=== PATIENT | female | born 1980 | race Caucasian/White ===

== ENCOUNTER → 2017-04-10 | Outpatient (CLI) | payer MEDICARE, OTHER, SELFPAY | PROVIDERS: Family Provider Nurse Practitioner Family; Visit Provider Family Medicine | DX: Z53.9 Procedure and treatment not carried out, unspecified reason (principal) ==

== ENCOUNTER → 2019-09-24 16:00 | Outpatient (BNVA) | payer MEDICARE, SELFPAY | PROVIDERS: Family Provider Nurse Practitioner; PCP Nurse Practitioner; Visit Provider Specialist | DX: S52.591A Other fractures of lower end of right radius, initial encounter for closed fracture (principal); X58.XXXA Exposure to other specified factors, initial encounter | CPT/HCPCS: 73110 ==

== ENCOUNTER → 2019-10-21 10:19 | Outpatient (BNVA) | payer MEDICARE, OTHER, SELFPAY | PROVIDERS: Family Provider Nurse Practitioner; PCP Nurse Practitioner; Visit Provider Nurse Practitioner | DX: R20.0 Anesthesia of skin (principal); R20.2 Paresthesia of skin | CPT/HCPCS: 82607 ==

== ENCOUNTER → 2019-10-29 10:43 | Outpatient (BNVA) | payer OTHER, SELFPAY | PROVIDERS: Family Provider Nurse Practitioner; PCP Nurse Practitioner; Visit Provider Nurse Practitioner | DX: R20.0 Anesthesia of skin (principal); R20.2 Paresthesia of skin | CPT/HCPCS: 72040 ==

== ENCOUNTER → 2019-11-06 10:02 | Outpatient (BNVA) | payer MEDICARE, SELFPAY | PROVIDERS: Family Provider Nurse Practitioner; PCP Nurse Practitioner; Visit Provider Nurse Practitioner Psychiatric/Mental Health | DX: F43.12 Post-traumatic stress disorder, chronic (principal); S06.9X9S Unspecified intracranial injury with loss of consciousness of unspecified duration, sequela; F02.80 Dementia in other diseases classified elsewhere, unspecified severity, without behavioral disturbance, psychotic disturbance, mood disturbance, and anxiety; F17.200 Nicotine dependence, unspecified, uncomplicated | CPT/HCPCS: 99214 ==

== ENCOUNTER 2019-11-08 16:07 | Emergency (ER) | payer MEDICARE, SELFPAY ==
[2019-11-08 16:18] VITALS: BP 150/105; PULSE 95; RESP 20; TEMP 37; O2SAT 96; BMI 41.8
--- NOTE | 2019-11-08 16:31 | ED_ITS ---
HPI - Extremity Problem General: Chief complaint: General Medical Stated complaint: right hand numb Time Seen by Provider: 11/08/19 16:24 Source: patient Mode of arrival: ambulatory Limitations: no limitations History of Present Illness: HPI Narrative: Patient is a 39-year-old female who presents to ED today with complaints of tingling to her right hand. Patient tells me she broke her wrist back in 07/2019. Patient states she followed up with orthopedics and eventually had the wrist casted. She tells me approximately a month ago she had her cast removed and states since that time she has had constant tingling to her right hand. Patient tells me she is not having any pain. She maintains full range of motion of her wrist and digits. She has not noticed any color/temperature changes to the hand. MD Complaint: extremity pain (tingling ) Onset (ago): month(s) Pain Consistency: constant Location: right Radiation: none Relieving factors: nothing Exacerbating factors: nothing Associated symptoms: Reports no associated symptoms Review of Systems Musc: Denies: extremity pain, extremity swelling, joint pain, joint swelling, redness, joint warmth, joint stiffness or limited range of motion Neuro: Reports: changes in sensation (R hand) [facility] ED PFSH: Medical History (Updated 11/08/19 @ 16:38 by JUAN Moore) Acid reflux Chronic post-traumatic stress disorder (PTSD) 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 Her significant other assists in reading/writing activities due to patient's reading/writing difficulties. PTSD (post-traumatic stress disorder) Seasonal allergic rhinitis Tobacco use disorder Tobacco use: She smokes 1 pack/day;20 year smoker. She reports she stopped using cigarettes at one point when she used Chantix, which was prescribed by her PCP. She is to think about whether or not she wants to restart Chantix in future visits and discuss with either PCP or [facility] provider. Surgical History (Updated 10/21/19 @ 10:12 by CRISS Calderón) History of bilateral knee arthroplasty History of hysterectomy with bilateral oophorectomy History of skin graft On bilateral legs History of umbilical hernia repair Social History (Updated 11/06/19 @ 10:21 by Macie Stephens LPN) Smoking and tobacco status: current every day smoker cigarettes Packs smoked per day: 1 Years cigarettes smoked: 20 Quit status (tobacco): not considering quitting Second hand smoke exposure: No Smoking risk assessment/counseling performed?: No Alcohol intake: never Desire information about alcohol rehabilitation?: No Counseling given: No Desire information about substance/drug rehabilitation?: No Counseling given: No Adopted: Yes Lives independently: Yes Household members: significant other Housing: House Marital status: Single Number of children: 0 service: No Current occupational status: unemployed Pets and animals: Yes History of recent travel: No Current gender identity: Female Physical Exam Const: COMMON NORMALS: no apparent distress, oriented x3, no limitations, alert and well nourished NUTRITIONAL APPEARANCE: obese Extremity: COMMON NORMALS: normal to inspection and full ROM OTHER: Patient has full range of motion of her right wrist and digits even against resistance. Radial pulse is intact. Cap refill is brisk. [employer] strength is equal bilaterally. Patient with her eyes closed can feel me touching her throughout both her dorsal and volar sides. Neuro: COMMON NORMALS: oriented x3 SENSORIUM/ORIENTATION: Yes alert Skin: COMMON NORMALS: no rashes or lesions noted GENERAL SKIN EXAM: no rashes or lesions noted Course Vital Signs: Vital signs: Vital Signs Temperature 98.6 F 11/08/19 16:18 Pulse Rate 95 11/08/19 16:18 Respiratory Rate 20 H 11/08/19 16:18 Blood Pressure 150/105 11/08/19 16:18 Pulse Oximetry 96 11/08/19 16:18 MDM - Extremity (Nontraumatic) MDM Narrative: Medical decision making narrative: Patient states paresthesias seemed to start after removal of her cast from her distal radial fracture. There is no specific nerve distribution to her paresthesias. Recommend she fol low-up with primary care or possibly orthopedics for further management. Discharge Plan Discharge Patient Disposition: Home, Self-Care Clinical Impression: Paresthesias in right hand Condition: Stable Prescriptions: No Action doxepin 10 mg capsule 10 mg PO DAILY RF: 0 hydrocodone-acetaminophen 5-325 mg tablet PO RF: 0 albuterol sulfate 90 mcg/actuation HFA aerosol inhaler INHALATION RF: 0 metoclopramide HCl 10 mg tablet 10 mg PO PRNRF: 0 mupirocin 2 % ointment TOPICAL RF: 0 famotidine 20 mg tablet 20 mg PO DAILY Qty: 30 RF: 2 furosemide 20 mg tablet PO DAILY RF: 0 montelukast 10 mg tablet 10 mg PO DAILY RF: 0 ondansetron HCl 8 mg tablet 8 mg PO Q8H PRNRF: 0 potassium chloride 10 mEq tablet,ER particles/crystals 10 meq PO DAILY RF: 0 terazosin 2 mg capsule 2 mg PO .QHS RF: 0 fluoxetine [Prozac] 20 mg capsule 20 mg PO QAM Qty: 30 RF: 1 fluoxetine [Prozac] 10 mg capsule 10 mg PO QAM Qty: 30 RF: 1 Discharge Orders: Discharge Order (Routine); Ordered 11/08/19 Ordered By: Citlalli Cerrato Referrals: Flakita Kerr, DIRECTOR COMMUNITY [employer]GANIZATION-C [Primary Care Provider] - Patient Instructions: Paresthesia (ED) Coding Level of Care Code ED Manager Product Marketing for Aj Whalen
[2019-11-08 17:03] VITALS: BP 142/99; PULSE 92; RESP 18; TEMP 36.9; O2SAT 96
== END 2019-11-08 17:10 | disposition home or self-care (01) ==
LOC: ER 17:02
PROVIDERS: Emergency Provider Physician Assistant; Family Provider Nurse Practitioner; PCP Nurse Practitioner
DX: R20.2 Paresthesia of skin (principal); F17.210 Nicotine dependence, cigarettes, uncomplicated
CPT/HCPCS: 99281

== ENCOUNTER → 2019-11-17 13:14 | Outpatient (BNVA) | payer MEDICARE, MEDICAID, SELFPAY | PROVIDERS: Family Provider Nurse Practitioner; PCP Nurse Practitioner; Visit Provider Specialist | DX: M25.531 Pain in right wrist (principal) | CPT/HCPCS: 73110 ==

== ENCOUNTER 2019-11-26 09:21 | Outpatient (RCR) | payer MEDICARE, MEDICAID, SELFPAY | END 2019-12-09 23:59 | disposition home or self-care (01) | LOC: SOT 09:21 | PROVIDERS: Family Provider Nurse Practitioner; PCP Nurse Practitioner; Referring Provider Specialist; Visit Provider Specialist | DX: S52.501D Unspecified fracture of the lower end of right radius, subsequent encounter for closed fracture with routine healing (principal); X58.XXXD Exposure to other specified factors, subsequent encounter | CPT/HCPCS: 97110; 97112; 97166; 97530 ==

== ENCOUNTER → 2019-12-09 08:49 | Outpatient (BNVA) | payer MEDICARE, SELFPAY | PROVIDERS: Family Provider Nurse Practitioner; PCP Nurse Practitioner; Visit Provider Nurse Practitioner | DX: E66.01 Morbid (severe) obesity due to excess calories (principal); F17.200 Nicotine dependence, unspecified, uncomplicated; J44.9 Chronic obstructive pulmonary disease, unspecified; Z13.6 Encounter for screening for cardiovascular disorders; Z68.41 Body mass index [BMI] 40.0-44.9, adult; R35.0 Frequency of micturition | CPT/HCPCS: 80053; 80061; 81000 ==

== ENCOUNTER 2019-12-10 06:00 | Outpatient (RCR) | payer MEDICARE, MEDICAID, SELFPAY | END 2020-01-08 23:59 | disposition home or self-care (01) | LOC: SOT 06:00 | PROVIDERS: Family Provider Nurse Practitioner; PCP Nurse Practitioner; Referring Provider Specialist; Visit Provider Specialist | DX: S52.501D Unspecified fracture of the lower end of right radius, subsequent encounter for closed fracture with routine healing (principal); X58.XXXD Exposure to other specified factors, subsequent encounter | CPT/HCPCS: 97110; 97112; 97530 ==

== ENCOUNTER → 2020-01-01 08:26 | Outpatient (BNVA) | payer MEDICARE, MEDICAID, SELFPAY | PROVIDERS: Family Provider Nurse Practitioner; PCP Nurse Practitioner; Visit Provider Nurse Practitioner Psychiatric/Mental Health | DX: F43.12 Post-traumatic stress disorder, chronic (principal); F02.80 Dementia in other diseases classified elsewhere, unspecified severity, without behavioral disturbance, psychotic disturbance, mood disturbance, and anxiety; S06.9X9S Unspecified intracranial injury with loss of consciousness of unspecified duration, sequela | CPT/HCPCS: 99212 ==

== ENCOUNTER 2020-01-14 15:49 | Emergency (ER) | payer MEDICARE, MEDICAID, SELFPAY ==
[2020-01-14 16:27] VITALS: BP 145/104; PULSE 82; RESP 18; TEMP 36.5; O2SAT 97; BMI 44.4
[2020-01-14 16:33] VITALS: BP 141/95; PULSE 78; RESP 18; O2SAT 98
--- NOTE | 2020-01-14 17:43 | W.ED.EXTPRO ---
Documented by User: Rik Jalloh DO 01/16/20 13:52 HPI - Extremity Problem General: Chief complaint: Extremity Injury, Lower Stated complaint: leg pain Time Seen by Provider: 01/14/20 16:30 History of Present Illness: HPI Narrative: 39-year-old female comes in complaining of right leg pain started 1 to 2 days ago. She had a right lateral popliteal discomfort she cannot recall any specific trauma other than that she seemed her daughter twisted while she was taking her dogs out 2 days ago. She is ambulatory since then she denies chest pain or dyspnea. MD Complaint: extremity pain and extremity swelling Onset (ago): day(s) (2) Pain Consistency: constant Location: right Relieving factors: nothing Exacerbating factors: nothing Associated symptoms: Deny chest pain, fever(s) or rash Context: other (Hurt knee while taking out the dog 1 to 2 days ago) Review of Systems Const: Denies: fever, chills, body aches, change in appetite, fatigue or malaise ENMT: Denies: throat pain, ear pain, nasal discharge or nasal congestion Card: Denies: chest pain, edema, shortness of breath on exertion or shortness of breath when lying down Resp: Denies: shortness of breath, productive cough or non-productive cough GI: Denies: abdominal pain, nausea, vomiting, vomiting blood, coffee grounds in vomit, diarrhea, constipation, bloating, blood in stool or black tarry stool : Denies: flank pain, difficulty urinating, painful urination, urinary frequency or urinary urgency Skin/Breast: Denies: rash or itching PFSH ED PFSH: Social History Smoking and tobacco status: current every day smoker cigarettes Packs smoked per day: 1 Years cigarettes smoked: 20 Quit status (tobacco): not considering quitting Second hand smoke exposure: No Smoking risk assessment/counseling performed?: No Alcohol intake: never Desire information about alcohol rehabilitation?: No Counseling given: No Desire information about substance/drug rehabilitation?: No Counseling given: No Adopted: Yes Caregiver/support person: No Lives independently: Yes Household members: significant other Housing: House Marital status: Single Number of children: 0 service: No Current occupational status: unemployed Pets and animals: Yes History of recent travel: No Current gender identity: Female Physical Exam Const: COMMON NORMALS: no apparent distress GENERAL APPEARANCE: cooperative and comfortable ORIENTATION/CONSCIOUSNESS: Yes awake, Yes oriented to person, Yes oriented to place and Yes oriented to time Eye: COMMON NORMALS: PERRL, EOMs intact bilaterally, conjunctivae normal and no scleral icterus CONJUNCTIVA: Yes conjunctivae normal PUPIL: Yes PERRL Neck/C-Spine: COMMON NORMALS: full ROM, no lymphadenopathy, supple and no JVD Lymph: LYMPHATIC: no lymphadenopathy noted and no lymphedema noted Resp: COMMON NORMALS: normal respiratory effort, no retractions, no use of accessory muscles and clear to auscultation bilaterally AUSCULTATION: clear to auscultation bilaterally Cardio: COMMON NORMALS: no JVD, regular rate, regular rhythm and no murmurs RATE: regular rate RHYTHM: regular rhythm GI: COMMON NORMALS: soft to palpation and no hepatosplenomegaly AUSCULTATION: Yes normoactive bowel sounds PALPATION: Yes soft, No tender, No guarding and Yes no hepatosplenomegaly Extremity: OTHER: Right knee lateral popliteal fossa is moderately firm tender to the touch there is no erythema or swelling or some generalized varicose veins but they are not tender with light palpation. There is bilateral moderate calf edema which appears to be chronic. The ligaments of the knee joint itself are intact there is no varus or valgus deformity drawer and Lockman's test are negative. Neuro: SENSORIUM/ORIENTATION: Yes oriented to person, Yes oriented to place and Yes oriented to time Skin: COMMON NORMALS: no rashes or lesions noted GENERAL SKIN EXAM: no rashes or lesions noted Course Vital Signs: Vital signs: Vital Signs Temperature 97.7 F 01/14/20 16:27 Pulse Rate 78 01/14/20 20:18 Respiratory Rate 18 01/14/20 20:18 Blood Pressure 146/87 01/14/20 20:18 Pulse Oximetry 99 01/14/20 20:18 MDM - Extremity (Nontraumatic) MDM Narrative: Medical decision making narrative: Care turned over with Dr. Kay at change of shift. We are waiting on a x-ray of the knee and a venous duplex lower extremity Discharge Plan Discharge Patient Disposition: Home, Self-Care Clinical Impression: Acute internal derangement of knee Qualifiers: Laterality: right Qualified Code(s): M23.91 - Unspecified internal derangement of right knee Condition: Stable Prescriptions: No Action albuterol sulfate 90 mcg/actuation HFA aerosol inhaler 90 g INHALATION PRN PRN (Reason: Shortness Of Breath) RF: 0 metoclopramide HCl 10 mg tablet 10 mg PO PRN PRN (Reason: UNKNOWN) RF: 0 ondansetron HCl 8 mg tablet 8 mg PO Q8H PRN (Reason: NAUSEA/VOMITING) RF: 0 fluoxetine [Prozac] 10 mg capsule 10 mg PO QAM Qty: 30 RF: 1 fluoxetine [Prozac] 20 mg capsule 20 mg PO QAM Qty: 30 RF: 1 doxepin 10 mg capsule 10 mg PO DAILY Qty: 30 RF: 5 furosemide 20 mg tablet 20 mg PO DAILY PRN (Reason: edema) Qty: 30 RF: 5 montelukast 10 mg tablet 10 mg PO DAILY Qty: 30 RF: 5 potassium chloride 10 mEq tablet,ER particles/crystals 10 meq PO DAILY Qty: 30 RF: 5 isosorbide dinitrate 30 mg tablet 30 mg PO DAILY Qty: 45 RF: 3 rosuvastatin [Crestor] 5 mg tablet 5 mg PO DAILY Qty: 30 RF: 0 Discharge Orders: Discharge Order (Routine); Ordered 01/14/20 Ordered By: Keily Quiros Referrals: Flakita Kerr, PROGRAM MANAGEMENT PROFESSIONAL-C [Primary Care Provider] - Pam Call MD [Physician] - 1-3 days Discharge Diet: Advance as tolerated Discharge Activity: Increase activity as tolerated Patient Instructions: Knee Pain (ED), Knee Immobilizer (ED) Activity Restrictions/Additional Instructions: Please return to the ER immediately for any of the signs or symptoms listed on your discharge instruction sheets, worsening/changing of your symptoms, you are not getting better as quickly as expected, or for ANY other cause or concerns. Bear weight on your leg only as tolerated. Be certain to follow-up with Dr. Villegas for repeat examination to evaluate for any further injuries. Discharge Date/Time: 01/14/20 20:20 Sign Out Sign Out Data: Patient Sign Out occurred on 01/14/20 at 19:00. Patient's care was discussed, and care was transferred from to Keily Quiros. Coding Level of Care Code ED Glazing Department Supervisor for Chg Fwd Exam Comprehensive Documented by User: Keily Demi DowneyChula 01/14/20 19:03 HPI - Extremity Problem General: Chief complaint: Extremity Injury, Lower Stated complaint: leg pain Time Seen by Provider: 01/14/20 16:30 PFSH ED PFSH: Social History Smoking and tobacco status: current every day smoker cigarettes Packs smoked per day: 1 Years cigarettes smoked: 20 Quit status (tobacco): not considering quitting Second hand smoke exposure: No Smoking risk assessment/counseling performed?: No Alcohol intake: never Desire information about alcohol rehabilitation?: No Counseling given: No Desire information about substance/drug rehabilitation?: No Counseling given: No Adopted: Yes Caregiver/support person: No Lives independently: Yes Household members: significant other Housing: House Marital status: Single Number of children: 0 service: No Current occupational status: unemployed Pets and animals: Yes History of recent travel: No Current gender identity: Female Course Vital Signs: Vital signs: Vital Signs Temperature 97.7 F 01/14/20 16:27 Pulse Rate 78 01/14/20 20:18 Respiratory Rate 18 01/14/20 20:18 Blood Pressure 146/87 01/14/20 20:18 Pulse Oximetry 99 01/14/20 20:18 MDM - Extremity (Nontraumatic) MDM Narrative: Medical decision making narrative: Patient's x-ray of her knee is unremarkable and her ultrasound is normal. I will place her in a knee immobilizer, crutches and have her follow-up with the orthopedic doctor Dr. Villegas. Imaging Data^: US Vascular: Radiologist's impression: Ultrasound lower extremity venous Doppler -negative for DVT Right Knee: My impression: No acute fracture or dislocation Discharge Plan Discharge Patient Disposition: Home, Self-Care Clinical Impression: Acute internal derangement of knee Qualifiers: Laterality: right Qualified Code(s): M23.91 - Unspecified internal derangement of right knee Condition: Stable Prescriptions: No Action albuterol sulfate 90 mcg/actuation HFA aerosol inhaler 90 g INHALATION PRN PRN (Reason: Shortness Of Breath) RF: 0 metoclopramide HCl 10 mg tablet 10 mg PO PRN PRN (Reason: UNKNOWN) RF: 0 ondansetron HCl 8 mg tablet 8 mg PO Q8H PRN (Reason: NAUSEA/VOMITING) RF: 0 fluoxetine [Prozac] 10 mg capsule 10 mg PO QAM Qty: 30 RF: 1 fluoxetine [Prozac] 20 mg capsule 20 mg PO QAM Qty: 30 RF: 1 doxepin 10 mg capsule 10 mg PO DAILY Qty: 30 RF: 5 furosemide 20 mg tablet 20 mg PO DAILY PRN (Reason: edema) Qty: 30 RF: 5 montelukast 10 mg tablet 10 mg PO DAILY Qty: 30 RF: 5 potassium chloride 10 mEq tablet,ER particles/crystals 10 meq PO DAILY Qty: 30 RF: 5 isosorbide dinitrate 30 mg tablet 30 mg PO DAILY Qty: 45 RF: 3 rosuvastatin [Crestor] 5 mg tablet 5 mg PO DAILY Qty: 30 RF: 0 Discharge Orders: Discharge Order (Routine); Ordered 01/14/20 Ordered By: Keily Quiros Referrals: Flakita Kerr, PROGRAM MANAGEMENT PROFESSIONAL-C [Primary Care Provider] - Pam Call MD [Physician] - 1-3 days Discharge Diet: Advance as tolerated Discharge Activity: Increase activity as tolerated Patient Instructions: Knee Pain (ED), Knee Immobilizer (ED) Activity Restrictions/Additional Instructions: Please return to the ER immediately for any of the signs or symptoms listed on your discharge instruction sheets, worsening/changing of your symptoms, you are not getting better as quickly as expected, or for ANY other cause or concerns. Bear weight on your leg only as tolerated. Be certain to follow-up with Dr. Villegas for repeat examination to evaluate for any further injuries. Discharge Date/Time: 01/14/20 20:20 Sign Out Sign Out Data: Patient Sign Out occurred on 01/14/20 at 19:00. Patient's care was discussed, and care was transferred from to Keily Quiros. Coding Level of Care Code ED Glazing Department Supervisor for Aj Fwd Exam Comprehensive
--- NOTE | 2020-01-14 17:44 | XR_ITS ---
WS: [id number] XR knee RT 3V* [id number] REASON FOR EXAM: Right knee pain The patella shows no definite fractures or dislocations. FINDINGS: The meniscal spaces are normal. The patella femoral articulations normal. The patella tibial space normal. XR/XR knee RT 3V* [id number] IMPRESSION: Negative right knee.
--- NOTE | 2020-01-14 17:44 | USCV_ITS ---
Sahil Omuarginger Age: 39 Gender: F : 1980 Exam Date: 01/14/2020 18:31 Ordering Phys: Rik Jalloh DO Technologist: Shelbie Landis Exam Location: [facility] [place] Indication: Pain Rt lateral lower leg with no trauma HISTORY: Pain Rt lateral lower leg with no trauma PROCEDURES: Venous duplex imaging was performed in only the right lower extremity. The following venous structures were evaluated: common femoral vein, profunda vein, proximal portion of the greater saphenous vein, superficial femoral vein, and the popliteal vein. In addition, the posterior tibial and peroneal trunk were evaluated. Serial compression, augmentation maneuvers, and spectral Doppler flow evaluation were performed. FINDINGS: No DVT seen in any vessel examined Small ? Donato's Cyst medial Rt pop fossa Rt lower later leg...edema noted in area directed by patient CONCLUSIONS No evidence of right lower extremity DVT. Small popliteal cyst 1.5 x 0.9cm Tal Vidal MD (Electronically Signed) Final Date: 15 Jan 2020 12:39 S
[2020-01-14 18:33] VITALS: BP 140/94; PULSE 77; RESP 18; O2SAT 97
[2020-01-14 20:18] VITALS: BP 146/87; PULSE 78; RESP 18; O2SAT 99
--- NOTE | 2020-01-15 10:28 | DCPLANNER ---
manager floor had message to schedule a follow up appointment for patient with ortho. manager floor called the ortho clinic, spoke with Shanta, gave clinic patients information. manager floor was told that patients information would be printed and reviewed. Clinic will call telephonic case manager and patient with appointment information.
--- NOTE | 2020-01-16 14:40 | DCPLANNER ---
Patient has a follow up appointment scheduled for Sunday, January 19, 2020 at 4:[address] Forbes. Clinic will call patient with appointment information.
== END 2020-01-14 20:20 | disposition home or self-care (01) ==
PROVIDERS: Emergency Provider Emergency Medicine; PCP Nurse Practitioner
DX: M23.91 Unspecified internal derangement of right knee (principal); F17.210 Nicotine dependence, cigarettes, uncomplicated
CPT/HCPCS: 12345; 29530; 73562; 93971; 99281; 99283

== ENCOUNTER 2020-01-19 23:56 | Emergency (ER) | payer MEDICARE, MEDICAID, SELFPAY ==
[2020-01-20 00:02] VITALS: BP 150/107; PULSE 101; RESP 16; TEMP 36.7; O2SAT 94; BMI 44.4
== END 2020-01-20 03:55 | disposition left against medical advice (07) ==
LOC: ER 01-20 00:15
PROVIDERS: Emergency Provider Emergency Medicine; PCP Nurse Practitioner
DX: Z53.21 Procedure and treatment not carried out due to patient leaving prior to being seen by health care provider (principal)
CPT/HCPCS: 99281

== ENCOUNTER → 2020-01-23 10:33 | Outpatient (BNVA) | payer MEDICARE, MEDICAID, SELFPAY | PROVIDERS: PCP Nurse Practitioner; Referring Provider Family Medicine; Visit Provider Orthopaedic Surgery | DX: M79.604 Pain in right leg (principal); M17.11 Unilateral primary osteoarthritis, right knee | CPT/HCPCS: 73590 ==

== ENCOUNTER → 2020-01-27 11:24 | Outpatient (BNVA) | payer MEDICARE, MEDICAID, SELFPAY | PROVIDERS: PCP Nurse Practitioner; Visit Provider Specialist | DX: G56.01 Carpal tunnel syndrome, right upper limb (principal); F17.210 Nicotine dependence, cigarettes, uncomplicated | CPT/HCPCS: 95910 ==

== ENCOUNTER 2020-02-05 11:44 | Outpatient (CLI) | payer MEDICARE, MEDICAID, SELFPAY ==
--- NOTE | 2020-02-05 11:51 | MR_ITS ---
WS: [id number] INDICATION: Right leg pain TECHNIQUE: MR of the right lower leg without gadolinium enhancement. Coronal STIR, coronal T1, sagitt al STIR, sagittal T1, axial T2 fat sat, axial PD fat-sat. FINDINGS: Diffuse edema involving the fibula head with nondisplaced slightly comminuted fracture invo lving the fibula head and neck. Edema extends to the tibiotalar articulation with mild associated allegra ma in the lateral tibia. No evidence of drainable abscess or fluid collection. Degenerative arthritis right knee. Tibia otherwise appears normal. Normal visualized ankle mortise. Mild subcutaneous edema lower leg. Findings are new since the MRI knee January 04, 2018 MR/MR lower leg RT wo con* [id number] IMPRESSION: 1. Focal diffuse edema involving the fibula head with slightly comminuted non displaced fracture involving the fibula head and neck. Edema extends into the f ibular head and adjacent tibial articulation. 2. No evidence of drainable abscess or fluid collection. 3. Tibia diaphysis appears normal. 4. Recommend correlation with history of trauma.
== END 2020-02-05 11:45 | disposition home or self-care (01) ==
PROVIDERS: PCP Nurse Practitioner; Visit Provider Orthopaedic Surgery
DX: M79.604 Pain in right leg (principal); R60.9 Edema, unspecified
CPT/HCPCS: 73718

== ENCOUNTER 2020-03-03 13:11 | Outpatient (RCR) | payer MEDICARE, MEDICAID, SELFPAY | END 2020-03-09 23:59 | disposition home or self-care (01) | LOC: APT 13:11 | PROVIDERS: PCP Nurse Practitioner; Referring Provider Orthopaedic Surgery; Visit Provider Orthopaedic Surgery | DX: M25.561 Pain in right knee (principal) | CPT/HCPCS: 97110; 97161; 97530 ==

== ENCOUNTER → 2020-03-04 08:04 | Outpatient (BNVA) | payer MEDICARE, MEDICAID, SELFPAY | PROVIDERS: PCP Nurse Practitioner; Visit Provider Nurse Practitioner Psychiatric/Mental Health | DX: F33.2 Major depressive disorder, recurrent severe without psychotic features (principal); G56.01 Carpal tunnel syndrome, right upper limb; R20.0 Anesthesia of skin; R20.2 Paresthesia of skin | CPT/HCPCS: 99212 ==

== ENCOUNTER 2020-03-10 06:00 | Outpatient (RCR) | payer MEDICARE, MEDICAID, SELFPAY | END 2020-04-09 23:59 | disposition home or self-care (01) | LOC: APT 06:00 | PROVIDERS: PCP Nurse Practitioner; Referring Provider Orthopaedic Surgery; Visit Provider Orthopaedic Surgery | DX: M25.561 Pain in right knee (principal) | CPT/HCPCS: 97110 ==

== ENCOUNTER → 2020-03-18 08:01 | Outpatient (BNVA) | payer MEDICARE, MEDICAID, SELFPAY | PROVIDERS: PCP Nurse Practitioner; Visit Provider Nurse Practitioner Psychiatric/Mental Health | DX: F43.12 Post-traumatic stress disorder, chronic (principal); F17.200 Nicotine dependence, unspecified, uncomplicated; S06.9X9S Unspecified intracranial injury with loss of consciousness of unspecified duration, sequela; F02.80 Dementia in other diseases classified elsewhere, unspecified severity, without behavioral disturbance, psychotic disturbance, mood disturbance, and anxiety | CPT/HCPCS: 99212 ==

== ENCOUNTER → 2020-03-24 11:48 | Outpatient (BNVA) | payer MEDICARE, MEDICAID, SELFPAY | PROVIDERS: PCP Nurse Practitioner; Visit Provider Nurse Practitioner | DX: E78.2 Mixed hyperlipidemia (principal); R39.11 Hesitancy of micturition | CPT/HCPCS: 80053; 80061; 81000; 85025 ==

== ENCOUNTER → 2020-04-20 09:59 | Outpatient (BNVA) | payer SELFPAY | PROVIDERS: PCP Nurse Practitioner; Visit Provider Internal Medicine | DX: G56.01 Carpal tunnel syndrome, right upper limb (principal) | CPT/HCPCS: 87635 ==

== ENCOUNTER 2020-04-23 07:33 | Day surgery (SDC) | payer MEDICARE, MEDICAID, SELFPAY ==
[2020-04-22 08:25] VITALS: BMI 49.6
[2020-04-23 07:46] VITALS: BP 144/77; PULSE 87; RESP 20; TEMP 37; O2SAT 94
--- NOTE | 2020-04-23 08:02 | P.ANESASSM_ITS ---
Pre-Anesthetic Assessment Pre-Anesthetic Assessment: Height/Weight: Height 1.5 m Weight 111.584 kg Temp Pulse Resp BP Pulse Ox 98.6 F 87 20 H 144/77 94 04/23/20 07:46 04/23/20 07:46 04/23/20 07:46 04/23/20 07:46 04/23/20 07:46 Preop Diagnosis: Right Carpal Tunnel Syndrome Proposed Procedure: Operation Date: 04/23/20 08:30 Proposed Procedures p Carpal Tunnel Release 39389 G56.01(Right) - Pam Call MD Familial anesthetic complications: none Was Beta Bimal taken within 24 hour s: N/A Last intake: Intake Last Liquid Date 04/22/20 Last Liquid Time 18:00 Last Solid Date 04/22/20 Last Solid Time 18:00 Social: Social History: Tobacco Exam: Pre-Anes Outpt Exam: alert, oriented x 3, clear to auscultation bilaterally and regular rate & rhythm Airway: Cervical ROM: WNL MP: 4 Dentition: Full Pulmonary: Pulmonary: Asthma CV/HEM: CV/HEM: HTN GI: GI: GERD Metabolic: Metabolic: Hyperlipidemia and Thyroid (patient unable to state what therapy she is on) Neuropsych: Neuropsych: None reported Anesthetic Plan: ASA status: 2 Anesthesia: MAC and Regional (specify below) Other: dioni block Risk of > 500 ml blood loss (7ml/kg in children): No PFSH Anesthesia PFSH: Medical History Acid reflux Chronic post-traumatic stress disorder (PTSD) During this assessment, she reports no problematic nightmares, flashbacks, avoidance behavior, or hypervigilance related to PTSD, and says her overall mood is good. 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 She has thought about using Wellbutrin SR for smoking cessation. See subjective information below. Urinary hesitancy Surgical History History of bilateral knee arthroplasty History of hysterectomy with bilateral oophorectomy History of skin graft On bilateral legs History of umbilical hernia repair Family History Mother Cancer Diabetes Brother Cancer Diabetes Social History Smoking and tobacco status: current every day smoker cigarettes Packs smoked per day: 1 Years cigarettes smoked: 20 Quit status (tobacco): considering quitting Second hand smoke exposure: No Smoking risk assessment/counseling performed?: No Alcohol intake: never Desire information about alcohol rehabilitation?: No Counseling given: No Desire information about substance/drug rehabilitation?: No Counseling given: No Adopted: Yes Caregiver/support person: No Lives independently: Yes Household members: significant other Housing: House Marital status: Single Number of children: 0 service: No Current occupational status: unemployed Pets and animals: Yes Pets & animals: dog(s) History of recent travel: No Current gender identity: Female Data Anesthesia Cardiac Studies: No Data to Display
[2020-04-23] MEDS: CELEcoxib 200 mg Capsule 400 MG PO (08:03)
[2020-04-23] MEDS: sodium chloride 0.9% 1,000 ML 30 ML IV (08:07)
--- NOTE | 2020-04-23 08:17 | P.HPUD_ITS ---
Surgery/Procedure H&P Update DATE OF PROCEDURE: April 23, 2020 DATE H&P PERFORMED: 04/05/20 H&P UPDATE INFORMATION: I have reviewed H&P completed within last 30 days, I have examined patient prior to procedure, No changes to prior documentation and H&P is in [facility] EMR on date indicated PREOP DIAGNOSIS: Right Carpal Tunnel Syndrome PLANNED PROCEDURE: Operation Date: 04/23/20 08:30 Proposed Procedures p Carpal Tunnel Release [id number] G56.01(Right) - Pam Call MD Related Problem List Diagnoses (1) Right carpal tunnel syndrome:
[2020-04-23] MEDS: vancomycin 1,000 MG in sodium chloride 0.9% 250 ML 250 MG IV (08:24)
[2020-04-23 09:31] VITALS: BP 135/88; PULSE 74; RESP 18; TEMP 36.6; O2SAT 97
--- NOTE | 2020-04-23 10:08 | PM.OP ---
Operative Report Date of procedure: April 23, 2020 Pre-op Diagnosis: Right Carpal Tunnel Syndrome Post-op diagnosis: same Procedure Done: Right carpal tunnel release Pathology: none sent Surgeon: Pam Call Commercial Driver'S License Driver: [facility] OR technicians Anesthesia: MAC (With Reshma block) Estimated blood loss (mL): 5 Tourniquet time (min): 32 Tourniquet time: At 250 mmHg IV fluids (mL): 200 Urine output (mL): 0 Urine output: No Tyson Complications: None Findings: Severe compression across the median nerve at the carpal canal Condition: stable Disposition: same day Brief History: This 39-year-old woman presented with complaints consistent with carpal tunnel syndrome. She had significant limitations in her activities of daily living. She had pain which precluded her from sleeping and performing normal activities as well. After discussion, she wished to proceed with right carpal tunnel release. This was scheduled for her. Procedure: The patient was brought to the operating theater. The patient had a [place] block with MAC. The tourniquet was elevated to 250 mmHg for a total tourniquet time of 32 minutes. The patient was also given vancomycin 1 g preoperatively. The arm was then prepped and draped with DuraPrep in usual fashion with the arm draped free. A surgical pause was performed. At the time, the surgical pause, we confirmed the site and side of surgery. We also confirmed the patient's identity, appropriate and timely administration of preoperative antibiotics and preoperative surgical markings. An incision was then made along the thenar crease. The incision crossed the wrist joint in a curvilinear fashion. Dissection continued through skin and soft tissues using a scalpel. The palmaris longus was identified along with the transverse carpal ligament. Each of these was released carefully to avoid injury to the median nerve. We were able to dissect gently into the carpal canal which was noted to be quite tight with significant compression across the median nerve. The nerve was visualized and was an hourglass shape. The canal was subsequently palpated to assure there was no bony encroachment upon the canal. There was a quite thickened fibrous tissue within the canal, and this was opened longitudinally as well. The canal was then palpated distally and proximally to assure that my small finger was passed easily without impingement. Finding this to be so, attention was directed to closure. The wound was irrigated with ropivacaine plain. It was then closed with 3-0 nylon in an interrupted mattress fashion. Sterile dressing was then placed consisting of Xeroform gauze, fluffed fluffs, sterile soft roll, a volar splint, and an [place] wrap. The tourniquet was released after 32 minutes. There were no complications. There were no specimens. The procedure was well tolerated. Plan is the patient will be discharged home. Associated Problem List Diagnoses (1) Right carpal tunnel syndrome:
[2020-04-23 10:10] VITALS: BP 116/75; PULSE 74; RESP 18; O2SAT 96
--- NOTE | 2020-04-23 13:49 | ANE.PACU2 ---
Inpatient post-anesthesia follow up: Airway intact: Yes Vital signs: Temperature 97.8 F Pulse Rate 74 Respiratory Rate 18 Blood Pressure 116/75 Pulse Oximetry 96 Oxygen Delivery Me thod Room Air Oxygen Flow Rate Fraction of Inspir ed Oxygen Hydration adequate: Yes Nausea and vomiting: No Pain level: 1 Mental status: Baseline
== END 2020-04-23 10:35 | disposition home or self-care (01) ==
PROVIDERS: PCP Nurse Practitioner; Visit Provider Specialist
PROC: (CPT 64721; principal; 2020-04-23 08:30)
DX: G56.01 Carpal tunnel syndrome, right upper limb (principal); J45.909 Unspecified asthma, uncomplicated; I10 Essential (primary) hypertension; K21.9 Gastro-esophageal reflux disease without esophagitis; F17.210 Nicotine dependence, cigarettes, uncomplicated; F43.12 Post-traumatic stress disorder, chronic; E66.01 Morbid (severe) obesity due to excess calories; E78.2 Mixed hyperlipidemia; Z68.42 Body mass index [BMI] 45.0-49.9, adult; Z87.820 Personal history of traumatic brain injury
CPT/HCPCS: 64721; 12345; 97760; J0131; J2405; J2704; J2765; J3010; J3370; J3490; J7030; J7050; L3908

== ENCOUNTER → 2020-04-29 09:31 | Outpatient (BNVA) | payer MEDICARE, MEDICAID, SELFPAY | PROVIDERS: PCP Nurse Practitioner; Visit Provider Nurse Practitioner Psychiatric/Mental Health | DX: F43.12 Post-traumatic stress disorder, chronic (principal); F17.200 Nicotine dependence, unspecified, uncomplicated; F02.80 Dementia in other diseases classified elsewhere, unspecified severity, without behavioral disturbance, psychotic disturbance, mood disturbance, and anxiety; S06.9X9S Unspecified intracranial injury with loss of consciousness of unspecified duration, sequela | CPT/HCPCS: G0463 ==

== ENCOUNTER 2020-05-03 19:27 | Emergency (ER) | payer MEDICARE, MEDICAID, SELFPAY ==
[2020-05-03 19:29] VITALS: BP 156/99; PULSE 108; RESP 18; TEMP 37.1; O2SAT 94; BMI 45.4
--- NOTE | 2020-05-03 19:34 | XRR_ITS ---
PROCEDURE INFORMATION: Exam: XR Chest, 1 View Exam date and time: 05/03/2020 7:50 PM Age: 39 years old Clinical indication: Shortness of breath; Additional info: SOB TECHNIQUE: Imaging protocol: XR of the chest Views: Frontal portable upright view of the chest. COMPARISON: CR Chest 1 [place] [id number] 06/02/2019 8:03 PM FINDINGS: Lungs: The lungs are clear bilaterally. The pulmonary vasculature is normal. Pleural space: No pleural effusion. No pneumothorax. Heart/Mediastinum: The heart is normal in size and contour. Mediastinum: Stable. Diaphragm: The right hemidiaphragm remains mildly elevated. Bones/joints: Stable. XR/XR chest 1V portable [id number] IMPRESSION: No acute cardiopulmonary abnormality identified.
--- NOTE | 2020-05-03 19:41 | ED_ITS ---
HPI - Asthma General: Chief Complaint: Asthma Stated Complaint: ASTHMA ATTACK Time Seen by Provider: 05/03/20 19:31 Source: patient and EMS Mode of arrival: EMS Limitations: no limitations History of Present Illness: HPI Narrative: Jeet is a 39-year-old female states she has been having asthma attacks over the last 2 days. States she had increased wheezing and difficulty breathing. Patient given a breathing treatment in route and states she feels much improved. Patient is an minimal distress currently with a pulse ox 95%. She denies any chest pain. She denies any fevers. Denies any vomiting or diarrhea. complaint: asthma attack Onset (ago): day(s) Severity: moderate Associated symptoms: Reports non-productive cough; Deny chest pain or fever(s) Review of Systems Const: Denies: fever(s), chills, body aches or change in appetite Eyes: Denies: blurry vision or eye discomfort ENMT: Denies: throat pain or dental pain Card: Denies: chest pain Resp: Reports: non-productive cough and wheezing GI: Denies: abdominal pain, nausea, vomiting or diarrhea : Denies: dysuria Musc: Denies: neck pain or back pain Skin/Breast: Denies: rash Neuro: Denies: headache(s) Psych: Denies: depression Abe/Lymph: Denies: easy bruising All/Imm: Denies: urticaria PFSH ED PFSH: Medical History Acid reflux Chronic post-traumatic stress disorder (PTSD) 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 Mixed hyperlipidemia Morbid obesity with BMI of 45.0-49.9, adult PTSD (post-traumatic stress disorder) Seasonal allergic rhinitis Tobacco use disorder Urinary hesitancy Surgical History History of bilateral knee arthroplasty History of hysterectomy with bilateral oophorectomy History of skin graft On bilateral legs History of umbilical hernia repair Family History Mother Cancer Diabetes Brother Cancer Diabetes Social History Smoking and tobacco status: current every day smoker cigarettes Packs smoked per day: 1 Years cigarettes smoked: 20 Quit status (tobacco): considering quitting Second hand smoke exposure: No Smoking risk assessment/counseling performed?: No Alcohol intake: never Desire information about alcohol rehabilitation?: No Counseling given: No Desire information about substance/drug rehabilitation?: No Counseling given: No Adopted: Yes Caregiver/support person: No Lives independently: Yes Household members: significant other Housing: House Marital status: Single Number of children: 0 service: No Current occupational status: unemployed Pets and animals: Yes Pets & animals: dog(s) History of recent travel: No Current gender identity: Female Physical Exam Const: COMMON NORMALS: no acute distress, patient oriented x3 and healthy appearing HENMT: COMMON NORMALS: normocephalic and atraumatic HEAD & SCALP: normocephalic and atraumatic Eye: COMMON NORMALS: Equal, round and reactive pupils present and EOMs intact bilaterally PUPIL: Yes Equal, round and reactive pupils present Neck/C-Spine: COMMON NORMALS: full ROM and supple Chest: COMMONS NORMALS: normal inspection of the chest and normal palpation of entire chest wall Resp: COMMON NORMALS: normal respiratory effort, No retractions and No use of accessory muscles AUSCULTATION: wheezes Cardio: COMMON NORMALS: regular rate, regular rhythm and No murmurs present (Cardio) RATE: regular rate RHYTHM: regular rhythm GI: COMMON NORMALS: Normal to inspection, nondistended, normoactive bowel sounds present, Soft to palpation, non-tender and no masses PALPATION: Yes Soft to palpation Extremity: COMMON NORMALS: normal to inspection and full ROM Neuro: COMMON NORMALS: patient oriented x3, moves all extremities and no focal motor deficits Psych: COMMON NORMALS: mental status grossly normal, Normal thought process present and cooperative THOUGHT PROCESS: Normal thought process present Skin: COMMON NORMALS: no rashes or lesions noted and no wounds GENERAL SKIN EXAM: no rashes or lesions noted Course Vital Signs: Vital signs: Vital Signs Temperature 98.8 F 05/03/20 19:29 Pulse Rate 103 H 05/03/20 19:52 Respiratory Rate 21 H 05/03/20 19:52 Blood Pressure 156/99 05/03/20 19:29 Pulse Oximetry 96 05/03/20 19:52 MDM - Asthma MDM Narrative: Medical decision making narrative: Patient presents with an asthma exacerbation. She feels much improved here after breathing treatment. Her lungs sound improved as well. We will place her on steroids and she is stable for discharge. She has no signs of pulmonary embolism. She has no signs of cardiac cause. She is to return if worsening. Lab Data: Labs: Lab Results 05/03/20 05/03/20 Range/Units 19:45 19:45 WBC 10.9 H (4.0-10.0) 10^3/ uL RBC 5.02 (4.1-5.3) 10^6/u L Hgb 14.5 (11.5-15.3) g/dL Hct 46.9 (37.0-47.0) % MCV 93.4 (81-99) fL MCH 28.9 (28.0-34.0) pg MCHC 30.9 (30.0-36.0) g/dL RDW 13.3 (12.1-15.1) % Plt Count 227 (130-400) 10^3/c mm MPV 11.9 H (7.4-10.4) fL Neut % (Auto) 53.8 % Lymph % (Auto) 33.5 % [place] % (Auto) 8.1 % Eos % (Auto) 3.6 % Baso % (Auto) 0.7 % Neut # (Auto) 5.86 (1.8-7.7) 10^3/u L Lymph # (Auto) 3.7 (0.8-4.8) 10^3/u L [place] # (Auto) 0.9 (0.2-0.9) 10^3/u L Eos # (Auto) 0.4 (0.0-0.8) 10^3/u L Baso # (Auto) 0.1 (0.0-0.1) 10^3/u L Nucleated RBC % (a uto) 0 % Nucleated RBCs # 0.0 /100WBC Sodium 139 (136-145) mmol/L Potassium 3.7 (3.5-5.1) mmol/L Chloride 104 (98-107) mmol/L Carbon Dioxide 24 (22-29) mmol/L Anion Gap 14.7 (5-19) BUN 19 (6-20) mg/dL Creatinine 0.9 (0.5-0.9) mg/dL GFR Calculation 69.7 L (90-130) mL/min Glucose 110 (65-115) mg/dL Calculated Osmolal ity 285 (285-295) mOsm/k g Calcium 9.5 (8.5-10.5) mg/dL Total Bilirubin 0.6 (0.15-1.2) mg/dL AST 19 (0-32) U/L ALT 14 (0-33) U/L Alkaline Phosphata se 103 (35-105) IU/L NT-Pro-B Natriuret Pep 61 (0-125) pg/mL Total Protein 7.0 (6.6-8.7) g/dL Albumin 4.3 (3.5-5.2) g/dL Globulin 2.7 (1.3-4.6) g/dL Imaging Data^: CXR: Attestation: I personally reviewed and interpreted this imaging study as follows: My impression: no acute abnormality Discharge Plan Discharge Patient Disposition: Home Clinical Impression: Asthma with acute exacerbation Qualifiers: Asthma severity: mild Asthma persistence: unspecified Qualified Code(s): J45.901 - Unspecified asthma with (acute) exacerbation Condition: Stable Prescriptions: New prednisone 50 mg tablet 50 mg PO DAILY Qty: 5 RF: 0 No Action albuterol sulfate 90 mcg/actuation HFA aerosol inhaler 90 g INHALATION PRN PRN (Reason: Shortness Of Breath) RF: 0 metoclopramide HCl 10 mg tablet 10 mg PO PRN PRN (Reason: UNKNOWN) RF: 0 ondansetron HCl 8 mg tablet 8 mg PO Q8H PRN (Reason: NAUSEA/VOMITING) RF: 0 fluoxetine [Prozac] 10 mg capsule 10 mg PO QAM Qty: 30 RF: 2 fluoxetine [Prozac] 20 mg capsule 20 mg PO QAM Qty: 30 RF: 2 doxepin 10 mg capsule 10 mg PO DAILY Qty: 30 RF: 5 montelukast 10 mg tablet 10 mg PO DAILY Qty: 30 RF: 5 potassium chloride 10 mEq tablet,ER particles/crystals 10 meq PO DAILY Qty: 30 RF: 5 isosorbide dinitrate 30 mg tablet 30 mg PO DAILY Qty: 45 RF: 3 rosuvastatin [Crestor] 5 mg tablet 5 mg PO DAILY Qty: 30 RF: 2 [place] 5-325 mg tablet 1 tab PO Q8H PRN (Reason: pain) Qty: 20 RF: 0 Discharge Orders: Discharge Order (Routine); Ordered 05/03/20 Ordered By: Hay Rivero Referrals: Flakita Kerr, EXTRUSION TECHNICIAN-C [Primary Care Provider] - 1-3 days Discharge Diet: Advance as tolerated Discharge Activity: Resume usual activity Patient Instructions: Asthma (ED) Coding Level of Care Code ED Center Machine Set Up Operator for Chg Fwd Exam Comprehensive
[2020-05-03 19:52] VITALS: PULSE 103; RESP 21; O2SAT 96
[2020-05-03 20:01] LABS: Basophils # 0.1 10^3/uL (0.0-0.1); Basophils % 0.7 %; Eosinophils # 0.4 10^3/uL (0.0-0.8); Eosinophils % 3.6 %; Hematocrit 46.9 % (37.0-47.0); Hemoglobin 14.5 g/dL (11.5-15.3); Lymphocytes # 3.7 10^3/uL (0.8-4.8); Lymphocytes % 33.5 %; Mean Corpuscular HGB Conc 30.9 g/dL (30.0-36.0); Mean Corpuscular Hemoglobin 28.9 pg (28.0-34.0); Mean Corpuscular Volume 93.4 fL (81-99); Mean Platelet Volume 11.9 fL (7.4-10.4); Monocytes # 0.9 10^3/uL (0.2-0.9); Monocytes % 8.1 %; Neutrophils # 5.86 10^3/uL (1.8-7.7); Neutrophils % 53.8 %; Nucleated Red Blood Cells % 0 %; Platelet Count 227 10^3/cmm (130-400); Red Blood Count 5.02 10^6/uL (4.1-5.3); Red Cell Distribution Width 13.3 % (12.1-15.1); White Blood Count 10.9 10^3/uL (4.0-10.0)
[2020-05-03 20:34] LABS: Alanine Aminotransferase 14 U/L (0-33); Albumin Level 4.3 g/dL (3.5-5.2); Alkaline Phosphatase 103 IU/L (35-105); Anion Gap 14.7 (5-19); Blood Urea Nitrogen 19 mg/dL (6-20); Calcium 9.5 mg/dL (8.5-10.5); Carbon Dioxide 24 mmol/L (22-29); Chloride 104 mmol/L (98-107); Globulin 2.7 g/dL (1.3-4.6); Glomerular Filtration Rate 69.7 mL/min (90-130); Glucose 110 mg/dL (65-115); NT Pro B Type Natriuretic Pept 61 pg/mL (0-125); Osmolality Calculated 285 mOsm/kg (285-295); Potassium 3.7 mmol/L (3.5-5.1); Sodium 139 mmol/L (136-145); Total Bilirubin 0.6 mg/dL (0.15-1.2)
[2020-05-03 20:35] LABS: Aspartate Amino Transferase 19 U/L (0-32)
[2020-05-03 20:44] VITALS: BP 133/94; PULSE 100; RESP 18; O2SAT 94
== END 2020-05-03 20:45 | disposition home or self-care (01) ==
PROVIDERS: Emergency Provider Emergency Medicine; PCP Nurse Practitioner
DX: J45.901 Unspecified asthma with (acute) exacerbation (principal); E78.2 Mixed hyperlipidemia; F17.210 Nicotine dependence, cigarettes, uncomplicated
CPT/HCPCS: 12345; 71045; 80053; 83880; 85025; 94640; 96374; 99283; J2930; J7611

== ENCOUNTER 2020-05-25 09:56 | Emergency (ER) | payer MEDICARE, MEDICAID, SELFPAY ==
[2020-05-25 09:59] VITALS: BP 138/84; PULSE 90; RESP 22; TEMP 36.2; O2SAT 95; BMI 40.4
--- NOTE | 2020-05-25 10:19 | ED_ITS ---
HPI - Extremity Problem General: Chief complaint: Extremity Problem,Nontraumatic Stated complaint: L SHOULDER PAIN Time Seen by Provider: 05/25/20 10:05 Source: patient Mode of arrival: ambulatory Limitations: no limitations History of Present Illness: HPI Narrative: left shoulder pain with rotation or when lifting Severity scale (1-10): 5 Review of Systems General: Reports: 10 or more systems reviewed and unremarkable except in HPI and below Musc: Reports: extremity pain (left shoulder) PFSH ED PFSH: Medical History Acid reflux Asthma due to environmental allergies Asthma with acute exacerbation Chronic post-traumatic stress disorder (PTSD) Hypokalemia 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 Mixed hyperlipidemia Morbid obesity with BMI of 45.0-49.9, adult PTSD (post-traumatic stress disorder) Seasonal allergic rhinitis Sleep difficulties Tobacco use disorder Urinary hesitancy Surgical History History of bilateral knee arthroplasty History of carpal tunnel surgery of right wrist 2020 History of hysterectomy with bilateral oophorectomy History of skin graft On bilateral legs History of umbilical hernia repair Family History Mother Cancer Diabetes Brother Cancer Diabetes Social History Smoking and tobacco status: current every day smoker cigarettes Packs smoked per day: 1 Years cigarettes smoked: 20 Quit status (tobacco): considering quitting Second hand smoke exposure: No Smoking risk assessment/counseling performed?: No Alcohol intake: never Desire information about alcohol rehabilitation?: No Counseling given: No Substance/Drug Use: never Desire information about substance/drug rehabilitation?: No Counseling given: No Adopted: Yes Caregiver/support person: No Lives independently: Yes Household members: significant other Housing: House Marital status: Single Number of children: 0 service: No Current occupational status: unemployed Pets and animals: Yes Pets & animals: dog(s) History of recent travel: No Current gender identity: Female Physical Exam Const: COMMON NORMALS: no acute distress, patient oriented x3, no limitations and alert GENERAL APPEARANCE: cooperative and comfortable ORIENTATION/CONSCIOUSNESS: Yes awake, Yes oriented to person, Yes oriented to place and Yes oriented to time HENMT: COMMON NORMALS: normocephalic, atraumatic, external ears normal, EAC's normal, TM's normal bilaterally and Normal external nose present HEAD & SCALP: normal to inspection, normocephalic and atraumatic FACE & SINUS: normal facial exam, sinuses nontender and face symmetric NOSE: Normal external nose present, Normal nares present and No nasal discharge present EXTERNAL EAR: Yes external ears normal EXTERNAL AUDITORY CANAL: EAC's normal TYMPANIC MEMBRANE: TM's normal bilaterally MOUTH: Normal oral and palatal mucosa present, lip normal and tongue normal THROAT: posterior oropharynx normal, tonsils normal and uvula midline Eye: COMMON NORMALS: Equal, round and reactive pupils present, EOMs intact bilaterally and conjunctivae normal GENERAL EYE: appearance normal, both eyes and all related structures and normal light reflex EYELID: eyelids normal CONJUNCTIVA: Yes conjunctivae normal PUPIL: Yes Equal, round and reactive pupils present EOM: Yes EOM abnormal DIRECT OPHTHALMOSCOPY: Yes normal light reflex Neck/C-Spine: COMMON NORMALS: full ROM, no lymphadenopathy, supple, no meningeal signs, no JVD and Thyroid normal GENERAL: Yes normal visual inspection THYROID: Thyroid normal CERVICAL SPINE: Yes cervical ROM normal and Yes normal cervical lordosis Lymph: LYMPHATIC: no lymphadenopathy noted Chest: COMMONS NORMALS: normal inspection of the chest and normal palpation of entire chest wall Resp: COMMON NORMALS: normal respiratory effort, No retractions and clear to auscultation bilaterally AUSCULTATION: clear to auscultation bilaterally Cardio: COMMON NORMALS: no JVD, regular rate, regular rhythm, S1 normal heart sound present, S2 normal heart sound present, No gallops present (Cardio), No clicks present (Cardio), No murmurs present (Cardio), No rub (Cardio) and Peripheral pulses 2+ throughout RATE: regular rate RHYTHM: regular rhythm HEART SOUNDS: S1 normal heart sound present and S2 normal heart sound present PERIPHERAL PULSES: Peripheral pulses 2+ throughout GI: COMMON NORMALS: Normal to inspection, nondistended, normoactive bowel sounds present, Soft to palpation, non-tender and no masses PALPATION: Yes Soft to palpation : COMMON NORMALS: Yes no CVA tenderness and Yes normal external appearance BLADDER/KIDNEY EXAM: Yes no CVA tenderness Back/Pelvis: COMMON NORMALS: no CVA tenderness, thoracic and lumbar spine normal to inspection, no thoracic nor lumbar tenderness and thoraco-lumbar ROM normal Extremity: COMMON NORMALS: normal to inspection, full ROM, capillary refill normal, no joint enlargement, no clubbing, cyanosis or edema, no calf tenderness and no pedal edema GENERAL: Yes normal exam except as noted LEFT UPPER EXTREMITY: Yes shoulder joint Left shoulder joint: Yes inspection, Yes palpation and Yes ROM (mild pain and crepitis ) Neuro: COMMON NORMALS: patient oriented x3, moves all extremities, no focal motor deficits, no sensory deficits noted and gait normal SENSORIUM/ORIENTATION: Yes alert, Yes oriented to person, Yes oriented to place and Yes oriented to time MENINGEAL SIGNS: Yes no meningeal signs Psych: COMMON NORMALS: mental status grossly normal, Normal thought process present, cooperative, normal affect, speech normal and activity/motor behavior normal SPEECH: Yes normal speech THOUGHT PROCESS: Normal thought process present Skin: COMMON NORMALS: no rashes or lesions noted, no wounds and turgor normal GENERAL SKIN EXAM: no rashes or lesions noted and turgor normal Course ED course: Pt notes pain in left shoulder with passive and active ROM. No trauma. Slight crepitus noted upon examination. Will do RICE and sling therapy as well as advise NSAIDs. Follow up with PCP for xray prn if worsening in symptoms. Vital Signs: Vital signs: Vital Signs Temperature 97.2 F L 05/25/20 09:59 Pulse Rate 90 05/25/20 09:59 Respiratory Rate 22 H 05/25/20 09:59 Blood Pressure 138/84 05/25/20 09:59 Pulse Oximetry 95 05/25/20 09:59 Discharge Plan Discharge Condition: Stable Prescriptions: No Action albuterol sulfate 90 mcg/actuation HFA aerosol inhaler 90 g INHALATION PRN PRN (Reason: Shortness Of Breath) RF: 0 metoclopramide HCl 10 mg tablet 10 mg PO PRN PRN (Reason: UNKNOWN) RF: 0 ondansetron HCl 8 mg tablet 8 mg PO Q8H PRN (Reason: NAUSEA/VOMITING) RF: 0 fluoxetine [Prozac] 10 mg capsule 10 mg PO QAM Qty: 30 RF: 2 fluoxetine [Prozac] 20 mg capsule 20 mg PO QAM Qty: 30 RF: 2 rosuvastatin [Crestor] 5 mg tablet 5 mg PO DAILY Qty: 30 RF: 5 potassium chloride 10 mEq tablet,ER particles/crystals 10 meq PO DAILY Qty: 30 RF: 5 montelukast 10 mg tablet 10 mg PO DAILY Qty: 30 RF: 5 doxepin 10 mg capsule 10 mg PO DAILY Qty: 30 RF: 5 isosorbide dinitrate 30 mg tablet 30 mg PO DAILY Qty: 45 RF: 3 [place] 5-325 mg tablet 1 tab PO Q8H PRN (Reason: pain) Qty: 20 RF: 0 prednisone 50 mg tablet 50 mg PO DAILY Qty: 5 RF: 0 Referrals: Flakita Kerr, ELECTRICAL LOGGING ENGINEER-C [Primary Care Provider] - Coding Level of Care Code ED Consumer Loan Specialist for Aj Whalen
[2020-05-25] MEDS: ketorolac 30 mg/mL INJ IM (10:30)
[2020-05-25] MEDS: orphenadrine 30 mg/mL Inj 2 mL 60 MG IM (10:30)
[2020-05-25] MEDS: dexamethasone 10 mg/mL INJ IM (10:30)
[2020-05-25 10:39] VITALS: RESP 15
== END 2020-05-25 10:40 | disposition home or self-care (01) ==
LOC: ER 10:37
PROVIDERS: Emergency Provider Nurse Practitioner Family; PCP Nurse Practitioner
DX: M25.512 Pain in left shoulder (principal); E78.2 Mixed hyperlipidemia; F17.210 Nicotine dependence, cigarettes, uncomplicated
CPT/HCPCS: 96372; 99281; 99283; J1100; J1885; J2360

== ENCOUNTER → 2020-06-03 11:23 | Outpatient (BNVA) | payer OTHER, SELFPAY | PROVIDERS: PCP Nurse Practitioner; Visit Provider Nurse Practitioner Psychiatric/Mental Health | DX: F43.12 Post-traumatic stress disorder, chronic (principal) | CPT/HCPCS: 80061; 83036 ==

== ENCOUNTER 2020-06-10 16:22 | Emergency (ER) | payer MEDICARE, MEDICAID, SELFPAY ==
[2020-06-04 11:59] VITALS: BP 107/72; BMI 35.9
--- NOTE | 2020-06-10 16:29 | W.ED.BACK ---
Documented by User: JUAN Moore 06/10/20 16:44 HPI - Back Pain/Injury General: Chief Complaint: Back Pain/Injury Stated Complaint: back pain Time Seen by Provider: 06/10/20 16:28 Source: patient Mode of arrival: ambulatory Limitations: no limitations History of Present Illness: HPI Narrative: Patient is a 39-year-old female who presents to ED today with complaints of acute on chronic back pain. Patient tells me she has had chronic back pain for several months if not years and was told it was secondary to scoliosis. She tells me over the past few days it has been worse than normal but the same character. When asked about urinary symptoms she does admit to some difficulty with urination but no dysuria, frequency, urgency, odor/smell. She is not having flank pain. She was seen at urgent care yesterday and prescribed muscle relaxers that she states are not working. She has no radicular symptoms. MD elicited complaint: back pain Pertinent past history: prior back pain Timing: constant Location: lumbar spine Radiation: none Relieving factors: none Associated symptoms: Deny abdominal pain, chills, dysuria, fatigue, fever(s), nausea, urinary urgency or vomiting Work related injury: No Review of Systems Const: Denies: fever(s), chills or fatigue Card: Denies: chest pain Resp: Denies: dyspnea GI: Denies: abdominal pain, nausea or vomiting : Reports: difficulty voiding and urinary hesitancy; Denies: flank pain, dysuria, urinary frequency, urinary urgency, vaginal odor, vaginal bleeding or vaginal discharge Musc: Reports: back pain; Denies: neck pain, extremity pain, extremity swelling, joint pain or joint swelling Neuro: Denies: headache(s), numbness in extremities, weakness in extremities or sensory changes PFS ED PFSH: Medical History (Updated 06/10/20 @ 17:07 by JOAQUIN Barnhart) Acid reflux Asthma due to environmental allergies Asthma with acute exacerbation Chronic post-traumatic stress disorder (PTSD) Hypokalemia 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 Mixed hyperlipidemia Morbid obesity with BMI of 45.0-49.9, adult PTSD (post-traumatic stress disorder) Seasonal allergic rhinitis Sleep difficulties Tobacco use disorder Urinary hesitancy Surgical History History of bilateral knee arthroplasty History of carpal tunnel surgery of right wrist 2020 History of hysterectomy with bilateral oophorectomy History of skin graft On bilateral legs History of umbilical hernia repair Family History Mother Cancer Diabetes Brother Cancer Diabetes Social History Smoking and tobacco status: current every day smoker cigarettes Packs smoked per day: 1 Years cigarettes smoked: 20 Quit status (tobacco): considering quitting Second hand smoke exposure: No Smoking risk assessment/counseling performed?: No Alcohol intake: never Desire information about alcohol rehabilitation?: No Counseling given: No Desire information about substance/drug rehabilitation?: No Counseling given: No Adopted: Yes Caregiver/support person: No Lives independently: Yes Household members: significant other Housing: House Marital status: Single Number of children: 0 service: No Current occupational status: unemployed Pets and animals: Yes Pets & animals: dog(s) History of recent travel: No Current gender identity: Female Physical Exam Const: COMMON NORMALS: no acute distress, patient oriented x3, no limitations and alert NUTRITIONAL APPEARANCE: obese morbidly obese HENMT: COMMON NORMALS: normocephalic and atraumatic HEAD & SCALP: normocephalic and atraumatic : COMMON NORMALS: Yes no CVA tenderness BLADDER/KIDNEY EXAM: Yes no CVA tenderness Back/Pelvis: COMMON NORMALS: no CVA tenderness THORACIC SPINE/UPPER BACK: Yes normal to inspection and Yes thoracic ROM normal LUMBAR SPINE/LOWER BACK: Yes lumbar ROM normal, No lumbar spinal tenderness, Yes paraspinal muscle tenderness Lumbar paraspinal muscle tenderness: bilateral and No paraspinal muscle spasm Extremity: COMMON NORMALS: normal to inspection and full ROM GENERAL: Yes normal exam except as noted Neuro: COMMON NORMALS: patient oriented x3, moves all extremities, no focal motor deficits, no sensory deficits noted and gait normal SENSORIUM/ORIENTATION: Yes alert Skin: COMMON NORMALS: no rashes or lesions noted GENERAL SKIN EXAM: no rashes or lesions noted Course Vital Signs: Vital signs: Vital Signs Temperature 98.1 F 06/10/20 16:30 Pulse Rate 126 H 06/10/20 16:30 Respiratory Rate 16 06/10/20 16:30 Blood Pressure 128/83 06/10/20 16:30 Pulse Oximetry 95 06/10/20 16:36 Discharge Plan Discharge Patient Disposition: Home Clinical Impression: Lumbar back pain Condition: Stable Prescriptions: No Action albuterol sulfate 90 mcg/actuation HFA aerosol inhaler 90 g INHALATION PRN PRN (Reason: Shortness Of Breath) RF: 0 ondansetron HCl 8 mg tablet 8 mg PO Q8H PRN (Reason: NAUSEA/VOMITING) RF: 0 fluoxetine [Prozac] 20 mg capsule 20 mg PO QAM Qty: 30 RF: 2 rosuvastatin [Crestor] 5 mg tablet 5 mg PO DAILY Qty: 30 RF: 5 potassium chloride 10 mEq tablet,ER particles/crystals 10 meq PO DAILY Qty: 30 RF: 5 montelukast 10 mg tablet 10 mg PO DAILY Qty: 30 RF: 5 doxepin 10 mg capsule 10 mg PO DAILY Qty: 30 RF: 5 hydrocodone-acetaminophen [Sheldon] 5-325 mg tablet 1 tab PO Q8H PRN (Reason: pain) Qty: 20 RF: 0 cyclobenzaprine 10 mg Tablet 10 mg PO BID PRN (Reason: pain) RF: 0 tizanidine 2 mg tablet 2 mg PO BEDTIME RF: 0 isosorbide dinitrate 30 mg tablet 15 mg PO DAILY RF: 0 naproxen 500 mg tablet 500 mg PO Q12H PRN (Reason: Pain) RF: 0 Discharge Orders: Discharge Order (Routine); Ordered 06/10/20 Ordered By: Luciano Sadler Referrals: Flakita Kerr, SHARONC [Primary Care Provider] - Discharge Diet: Usual diet Discharge Activity: Increase activity as tolerated Patient Instructions: Chronic Back Pain (ED) Activity Restrictions/Additional Instructions: Continue with routine medications. Activity as tolerated. Gentle stretching and range of motion activity. Return to the emergency department if loss of bowel or bladder control, or high fever. Follow-up with primary care for further evaluation of back pain. You need to talk to Ms. Kerr regarding getting an MRI scheduled due to your persistent and worsening back pain. 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 Mixed hyperlipidemia Morbid obesity with BMI of 45.0-49.9, adult PTSD (post-traumatic stress disorder) Seasonal allergic rhinitis Sleep difficulties Tobacco use disorder Urinary hesitancy Surgical History History of bilateral knee arthroplasty History of carpal tunnel surgery of right wrist 2020 History of hysterectomy with bilateral oophorectomy History of skin graft On bilateral legs History of umbilical hernia repair Family History Mother Cancer Diabetes Brother Cancer Diabetes Social History Smoking and tobacco status: current every day smoker cigarettes Packs smoked per day: 1 Years cigarettes smoked: 20 Quit status (tobacco): considering quitting Second hand smoke exposure: No Smoking risk assessment/counseling performed?: No Alcohol intake: never Desire information about alcohol rehabilitation?: No Counseling given: No Desire information about substance/drug rehabilitation?: No Counseling given: No Adopted: Yes Caregiver/support person: No Lives independently: Yes Household members: significant other Housing: House Marital status: Single Number of children: 0 service: No Current occupational status: unemployed Pets and animals: Yes Pets & animals: dog(s) History of recent travel: No Current gender identity: Female Course Vital Signs: Vital signs: Vital Signs Temperature 98.1 F 06/10/20 16:30 Pulse Rate 126 H 06/10/20 16:30 Respiratory Rate 16 06/10/20 16:30 Blood Pressure 128/83 06/10/20 16:30 Pulse Oximetry 95 06/10/20 16:36 MDM - Back Pain/Injury MDM Narrative: Medical decision making narrative: Patient comes in today for complaints of low back pain. Patient denies any urinary difficulty. Patient appears well. Patient appears in moderate pain. Patient was evaluated by RAFAL Moore, prior to my acceptance of patient. Patient's leg lift test is negative. Patient has some muscle tenderness in the low back. No vertebral tenderness was noted. Vital signs are normal. Patient was given Toradol and orphenadrine for her pain. Differential diagnosis includes but not limited to lumbar strain, intervertebral disc disease, facet arthropathy. Reviewed exam with patient with recommendations for follow-up with primary care regarding further imaging and MRI due to the length of time of her pain and the persistent and worsening symptoms of her pain. Discussed red flags such as fever, difficulty with urination and bowel movements. Patient at this time denied all symptoms. No further medications were prescribed at this time due to patient's polypharmacy. Patient agreed with follow-up appointment with primary care for further imaging such as MRI. Discharge Plan Discharge Patient Disposition: Home Clinical Impression: Lumbar back pain Condition: Stable Prescriptions: No Action albuterol sulfate 90 mcg/actuation HFA aerosol inhaler 90 g INHALATION PRN PRN (Reason: Shortness Of Breath) RF: 0 ondansetron HCl 8 mg tablet 8 mg PO Q8H PRN (Reason: NAUSEA/VOMITING) RF: 0 fluoxetine [Prozac] 20 mg capsule 20 mg PO QAM Qty: 30 RF: 2 rosuvastatin [Crestor] 5 mg tablet 5 mg PO DAILY Qty: 30 RF: 5 potassium chloride 10 mEq tablet,ER particles/crystals 10 meq PO DAILY Qty: 30 RF: 5 montelukast 10 mg tablet 10 mg PO DAILY Qty: 30 RF: 5 doxepin 10 mg capsule 10 mg PO DAILY Qty: 30 RF: 5 hydrocodone-acetaminophen [Sheldon] 5-325 mg tablet 1 tab PO Q8H PRN (Reason: pain) Qty: 20 RF: 0 cyclobenzaprine 10 mg Tablet 10 mg PO BID PRN (Reason: pain) RF: 0 tizanidine 2 mg tablet 2 mg PO BEDTIME RF: 0 isosorbide dinitrate 30 mg tablet 15 mg PO DAILY RF: 0 naproxen 500 mg tablet 500 mg PO Q12H PRN (Reason: Pain) RF: 0 Discharge Orders: Discharge Order (Routine); Ordered 06/10/20 Ordered By: Luciano Sadler Referrals: Flakita Kerr, SAP CRM DEVELOPER-C [Primary Care Provider] - Discharge Diet: Usual diet Discharge Activity: Increase activity as tolerated Patient Instructions: Chronic Back Pain (ED) Activity Restrictions/Additional Instructions: Continue with routine medications. Activity as tolerated. Gentle stretching and range of motion activity. Return to the emergency department if loss of bowel or bladder control, or high fever. Follow-up with primary care for further evaluation of back pain. You need to talk to Ms. Kerr regarding getting an MRI scheduled due to your persistent and worsening back pain. Coding Level of Care Code ED Shift Superintendent Caustic Cresylate for Chg Fwd Exam Detailed
[2020-06-10 16:30] VITALS: BP 128/83; PULSE 126; RESP 16; TEMP 36.7; O2SAT 94; BMI 40.4
[2020-06-10 16:36] VITALS: O2SAT 95
[2020-06-10] MEDS: orphenadrine 30 mg/mL Inj 2 mL 60 MG IM (16:47)
[2020-06-10] MEDS: ketorolac 60 mg/2 mL INJ IM (16:48)
== END 2020-06-10 17:30 | disposition home or self-care (01) ==
PROVIDERS: Emergency Provider Nurse Practitioner Family; PCP Nurse Practitioner
DX: M54.5 Low back pain (principal); E78.2 Mixed hyperlipidemia; F17.210 Nicotine dependence, cigarettes, uncomplicated
CPT/HCPCS: 12345; 96372; 99281; 99283; J1885; J2360

== ENCOUNTER → 2020-06-16 10:20 | Outpatient (BNVA) | payer MEDICARE, MEDICAID, SELFPAY ==
[2020-06-15 08:53] VITALS: BP 107/72; BMI 35.9
== END ==
PROVIDERS: PCP Nurse Practitioner; Visit Provider Nurse Practitioner
DX: M79.18 Myalgia, other site (principal); M54.5 Low back pain
CPT/HCPCS: 72100

== ENCOUNTER 2020-07-06 11:22 | Emergency (ER) | payer MEDICARE, MEDICAID, SELFPAY ==
[2020-06-15 08:53] VITALS: BP 107/72; BMI 35.9
[2020-07-06 11:39] VITALS: BP 144/100; PULSE 103; RESP 18; TEMP 36.7; O2SAT 95; BMI 56.5
--- NOTE | 2020-07-06 11:42 | W.ED.ABDPA2 ---
HPI - Abdominal Pain General: Chief Complaint: Abdominal Pain Stated Complaint: pain when eating Time Seen by Provider: 07/06/20 11:39 Source: patient Mode of arrival: ambulatory Limitations: no limitations History of Present Illness: HPI narrative: 40 yo female that states she has had abdominal pain with eating the last 3 days. she denies any fevers. She has had a cholecystectomy. denies n/v. denies diarrhea. pt denies any pain curently and only has a burning pain when eating. MD elicited complaint: abdominal pain Associated Symptoms: Denies chills, dysuria and fever(s) Review of Systems Const: Denies: fever(s), chills, body aches or change in appetite Eyes: Denies: blurry vision or eye discomfort ENMT: Denies: throat pain or dental pain Card: Denies: chest pain Resp: Denies: dyspnea GI: Reports: abdominal pain : Denies: dysuria Musc: Denies: neck pain or back pain Skin/Breast: Denies: rash Neuro: Denies: headache(s) Psych: Denies: depression Abe/Lymph: Denies: easy bruising All/Imm: Denies: urticaria PFSH ED PFSH: Medical History Acid reflux Asthma due to environmental allergies Asthma with acute exacerbation Chronic post-traumatic stress disorder (PTSD) Hypokalemia 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 Mixed hyperlipidemia Morbid obesity with BMI of 45.0-49.9, adult PTSD (post-traumatic stress disorder) Seasonal allergic rhinitis Sleep difficulties Tobacco use disorder Urinary hesitancy Surgical History History of bilateral knee arthroplasty History of carpal tunnel surgery of right wrist 2020 History of hysterectomy with bilateral oophorectomy History of skin graft On bilateral legs History of umbilical hernia repair Family History Mother Cancer Diabetes Brother Cancer Diabetes Social History Smoking and tobacco status: current every day smoker cigarettes Packs smoked per day: 1 Years cigarettes smoked: 27 Quit status (tobacco): considering quitting Second hand smoke exposure: No Smoking risk assessment/counseling performed?: No Alcohol intake: never Desire information about alcohol rehabilitation?: No Counseling given: No Desire information about substance/drug rehabilitation?: No Counseling given: No Adopted: Yes Caregiver/support person: No Lives independently: Yes Household members: significant other Housing: House Marital status: Single Number of children: 0 Number of grandchildren: 0 Highest education level completed: High School Graduate service: No Current occupational status: disabled Pets and animals: Yes Pets & animals: dog(s) Pets & animal details: su History of recent travel: No Leisure activites: exercise Sexually active: Yes Current gender identity: Female /Amish: Alevism Special needs: No Agree to transfusion: Yes Financial difficulty paying for basics: Not Very Hard Physical Exam Const: COMMON NORMALS: no acute distress, patient oriented x3 and healthy appearing HENMT: COMMON NORMALS: normocephalic and atraumatic HEAD & SCALP: normocephalic and atraumatic Eye: COMMON NORMALS: Equal, round and reactive pupils present and EOMs intact bilaterally PUPIL: Yes Equal, round and reactive pupils present Neck/C-Spine: COMMON NORMALS: full ROM and supple Chest: COMMONS NORMALS: normal inspection of the chest and normal palpation of entire chest wall Resp: COMMON NORMALS: normal respiratory effort, No retractions, No use of accessory muscles and clear to auscultation bilaterally AUSCULTATION: clear to auscultation bilaterally Cardio: COMMON NORMALS: regular rate, regular rhythm and No murmurs present (Cardio) RATE: regular rate RHYTHM: regular rhythm GI: COMMON NORMALS: Normal to inspection, nondistended, normoactive bowel sounds present, Soft to palpation, non-tender and no masses PALPATION: Yes Soft to palpation Extremity: COMMON NORMALS: normal to inspection and full ROM Neuro: COMMON NORMALS: patient oriented x3, moves all extremities and no focal motor deficits Psych: COMMON NORMALS: mental status grossly normal, Normal thought process present and cooperative THOUGHT PROCESS: Normal thought process present Skin: COMMON NORMALS: no rashes or lesions noted and no wounds GENERAL SKIN EXAM: no rashes or lesions noted Course Vital Signs: Vital signs: Vital Signs Temperature 98.1 F 07/06/20 11:39 Pulse Rate 103 H 07/06/20 11:39 Respiratory Rate 18 07/06/20 11:39 Blood Pressure 144/100 07/06/20 11:39 Pulse Oximetry 97 07/06/20 12:04 MDM - Abdominal Pain MDM Narrative: Medical decision making narrative: Jeet presents abdominal pain is likely gastritis. It only when she eats and she is already had a cholecystectomy. Patient's blood work here is normal and she has been pain-free here and her exam here is benign. Will prescribe her Protonix for home and she is stable for discharge. She is to follow-up with PCP and return if worsening. Lab Data: Labs: Lab Results 07/06/20 07/06/20 Range/Units 12:35 12:35 WBC 9.0 (4.0-10.0) 10^3/ uL RBC 4.60 (4.1-5.3) 10^6/u L Hgb 13.7 (11.5-15.3) g/dL Hct 43.3 (37.0-47.0) % MCV 94.1 (81-99) fL MCH 29.8 (28.0-34.0) pg MCHC 31.6 (30.0-36.0) g/dL RDW 13.0 (12.1-15.1) % Plt Count 236 (130-400) 10^3/c mm MPV 10.8 H (7.4-10.4) fL Neut % (Auto) 52.3 % Lymph % (Auto) 34.5 % [place] % (Auto) 8.2 % Eos % (Auto) 3.6 % Baso % (Auto) 1.2 % Neut # (Auto) 4.69 (1.8-7.7) 10^3/u L Lymph # (Auto) 3.1 (0.8-4.8) 10^3/u L [place] # (Auto) 0.7 (0.2-0.9) 10^3/u L Eos # (Auto) 0.3 (0.0-0.8) 10^3/u L Baso # (Auto) 0.1 (0.0-0.1) 10^3/u L Nucleated RBC % (a uto) 0 % Nucleated RBCs # 0.0 /100WBC Sodium 140 (136-145) mmol/L Potassium 3.9 (3.5-5.1) mmol/L Chloride 106 (98-107) mmol/L Carbon Dioxide 25 (22-29) mmol/L Anion Gap 12.9 (5-19) BUN 9 (6-20) mg/dL Creatinine 0.7 (0.5-0.9) mg/dL GFR Calculation 92.7 (90-130) mL/min Calculated Osmolal ity 290 (285-295) mOsm/k g Calcium 8.9 (8.5-10.5) mg/dL Total Bilirubin 0.6 (0.15-1.2) mg/dL AST 21 (0-32) U/L ALT 20 (0-33) U/L Alkaline Phosphata se 89 (35-105) IU/L Albumin 4.0 (3.5-5.2) g/dL Globulin 2.3 (1.3-4.6) g/dL Lipase 19 (13-60) U/L Discharge Plan Discharge Patient Disposition: Home Clinical Impression: Abdominal pain Qualifiers: Abdominal location: epigastric Qualified Code(s): R10.13 - Epigastric pain Condition: Stable Prescriptions: New Protonix 40 mg tablet,delayed release (DR/EC) 40 mg PO DAILY Qty: 60 RF: 0 No Action albuterol sulfate 90 mcg/actuation HFA aerosol inhaler 90 g INHALATION PRN PRN (Reason: Shortness Of Breath) RF: 0 ondansetron HCl 8 mg tablet 8 mg PO Q8H PRN (Reason: NAUSEA/VOMITING) RF: 0 fluoxetine [Prozac] 20 mg capsule 20 mg PO QAM Qty: 30 RF: 2 rosuvastatin [Crestor] 5 mg tablet 5 mg PO DAILY Qty: 30 RF: 5 potassium chloride 10 mEq tablet,ER particles/crystals 10 meq PO DAILY Qty: 30 RF: 5 doxepin 10 mg capsule 10 mg PO DAILY Qty: 30 RF: 5 nystatin 100,000 unit/gram powder 1 applic TOPICAL TID Qty: 60 RF: 0 furosemide 20 mg tablet 20 mg PO DAILY RF: 0 cyclobenzaprine 10 mg Tablet 10 mg PO BID PRN (Reason: pain) RF: 0 tizanidine 2 mg tablet 2 mg PO BEDTIME RF: 0 isosorbide dinitrate 30 mg tablet 15 mg PO DAILY RF: 0 Discharge Orders: Discharge Order (Routine); Ordered 07/06/20 Ordered By: Korby Josefa Referrals: Flakita Kerr, STRUCTURAL STEEL WORKER APPRENTICE-C [Primary Care Provider] - 1-3 days Discharge Diet: Advance as tolerated Discharge Activity: Resume usual activity Patient Instructions: Abdominal Pain (ED) Coding Level of Care Code ED Wall Taper for Chg Fwd Exam Comprehensive
[2020-07-06 12:04] VITALS: O2SAT 97
[2020-07-06 12:57] LABS: Basophils # 0.1 10^3/uL (0.0-0.1); Basophils % 1.2 %; Eosinophils # 0.3 10^3/uL (0.0-0.8); Eosinophils % 3.6 %; Hematocrit 43.3 % (37.0-47.0); Hemoglobin 13.7 g/dL (11.5-15.3); Lymphocytes # 3.1 10^3/uL (0.8-4.8); Lymphocytes % 34.5 %; Mean Corpuscular HGB Conc 31.6 g/dL (30.0-36.0); Mean Corpuscular Hemoglobin 29.8 pg (28.0-34.0); Mean Corpuscular Volume 94.1 fL (81-99); Mean Platelet Volume 10.8 fL (7.4-10.4); Monocytes # 0.7 10^3/uL (0.2-0.9); Monocytes % 8.2 %; Neutrophils # 4.69 10^3/uL (1.8-7.7); Neutrophils % 52.3 %; Nucleated Red Blood Cells % 0 %; Platelet Count 236 10^3/cmm (130-400)
[2020-07-06 13:14] LABS: Alanine Aminotransferase 20 U/L (0-33); Alkaline Phosphatase 89 IU/L (35-105); Anion Gap 12.9 (5-19); Aspartate Amino Transferase 21 U/L (0-32); Blood Urea Nitrogen 9 mg/dL (6-20); Calcium 8.9 mg/dL (8.5-10.5); Carbon Dioxide 25 mmol/L (22-29); Chloride 106 mmol/L (98-107); Globulin 2.3 g/dL (1.3-4.6); Glomerular Filtration Rate 92.7 mL/min (90-130); Glucose 123 mg/dL (65-115); Lipase 19 U/L (13-60); Osmolality Calculated 290 mOsm/kg (285-295); Potassium 3.9 mmol/L (3.5-5.1); Sodium 140 mmol/L (136-145); Total Bilirubin 0.6 mg/dL (0.15-1.2); Total Protein 6.3 g/dL (6.6-8.7)
== END 2020-07-06 13:20 | disposition home or self-care (01) ==
PROVIDERS: Emergency Provider Emergency Medicine; PCP Nurse Practitioner
DX: R10.13 Epigastric pain (principal); E78.2 Mixed hyperlipidemia; F17.210 Nicotine dependence, cigarettes, uncomplicated
CPT/HCPCS: 12345; 36415; 80053; 83690; 85025; 99281; 99282

== ENCOUNTER 2020-07-21 19:46 | Emergency (ER) | payer MEDICARE, MEDICAID, SELFPAY ==
[2020-06-15 08:53] VITALS: BP 107/72; BMI 35.9
--- NOTE | 2020-07-21 19:52 | XR_ITS ---
WS: [id number] Right hip, AP and frog-leg views, 07/21/2020 Clinical Data: pain Comparison: None. Findings: No fractures or dislocations are seen. The hip joint is intact. The soft tissues are not remarkable. The adjacent pelvis is normal. XR/XR hip RT 2-3V wo/w pel* [id number] Impression: Negative right hip.
[2020-07-21 20:45] VITALS: BP 130/86; PULSE 89; RESP 16; TEMP 36.6; O2SAT 97; BMI 50.5
--- NOTE | 2020-07-21 21:11 | W.ED.EXTPRO ---
HPI - Extremity Problem General: Chief complaint: Extremity Problem,Nontraumatic Stated complaint: right hip pain Time Seen by Provider: 07/21/20 21:10 History of Present Illness: HPI Narrative: Patient is a 40-year-old female comes to the ED with right hip pain. Symptoms started today. She denies any fall, injury or trauma to start right hip pain. She is able to ambulate but she says it just causes some pain. Pain rated 10 out of 10. Denies any pain radiating down the leg, bladder or bowel symptoms. Associated symptoms: Deny chest pain, fever(s) or rash Review of Systems Const: Denies: fever(s), chills or fatigue Eyes: Denies: change in vision or eye discomfort ENMT: Denies: throat pain, odynophagia, nasal discharge or nasal congestion Card: Denies: chest pain, palpitations, edema, swelling of feet/ankles, dyspnea on exertion or orthopnea Resp: Denies: dyspnea, productive cough or non-productive cough GI: Denies: abdominal pain, nausea, vomiting, diarrhea, constipation or hematochezia : Denies: flank pain, dysuria or hematuria Musc: Reports: joint pain (Right hip pain.); Denies: neck pain, back pain or extremity swelling Skin/Breast: Denies: rash or new lesions Neuro: Denies: headache(s), numbness in extremities or weakness in extremities PFSH ED PFSH: Medical History Acid reflux Asthma due to environmental allergies Asthma with acute exacerbation Chronic post-traumatic stress disorder (PTSD) Hypokalemia 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 Mixed hyperlipidemia Morbid obesity with BMI of 45.0-49.9, adult PTSD (post-traumatic stress disorder) Seasonal allergic rhinitis Sleep difficulties Tobacco use disorder Urinary hesitancy Surgical History History of bilateral knee arthroplasty History of carpal tunnel surgery of right wrist 2020 History of hysterectomy with bilateral oophorectomy History of skin graft On bilateral legs History of umbilical hernia repair Family History Mother Cancer Diabetes Brother Cancer Diabetes Social History Smoking and tobacco status: current every day smoker cigarettes Packs smoked per day: 1 Years cigarettes smoked: 27 Quit status (tobacco): considering quitting Second hand smoke exposure: No Smoking risk assessment/counseling performed?: No Alcohol intake: never Desire information about alcohol rehabilitation?: No Counseling given: No Desire information about substance/drug rehabilitation?: No Counseling given: No Adopted: Yes Caregiver/support person: No Lives independently: Yes Household members: significant other Housing: House Marital status: Single Number of children: 0 Number of grandchildren: 0 Highest education level completed: High School Graduate service: No Current occupational status: disabled Pets and animals: Yes Pets & animals: dog(s) Pets & animal details: jfef and isacc History of recent travel: No Leisure activites: exercise Sexually active: Yes Current gender identity: Female /Worship: Judaism Special needs: No Agree to transfusion: Yes Financial difficulty paying for basics: Not Very Hard Physical Exam Const: COMMON NORMALS: no acute distress, patient oriented x3 and alert GENERAL APPEARANCE: cooperative and comfortable NUTRITIONAL APPEARANCE: obese morbidly obese HENMT: COMMON NORMALS: normocephalic HEAD & SCALP: normocephalic MOUTH: Normal oral and palatal mucosa present THROAT: posterior oropharynx normal and uvula midline Eye: COMMON NORMALS: Equal, round and reactive pupils present PUPIL: Yes Equal, round and reactive pupils present Neck/C-Spine: COMMON NORMALS: supple GENERAL: Yes normal visual inspection Resp: COMMON NORMALS: normal respiratory effort, No retractions, No use of accessory muscles and clear to auscultation bilaterally AUSCULTATION: clear to auscultation bilaterally Cardio: COMMON NORMALS: regular rate, regular rhythm, S1 normal heart sound present, S2 normal heart sound present, No gallops present (Cardio), No clicks present (Cardio), No murmurs present (Cardio) and Peripheral pulses 2+ throughout RATE: regular rate RHYTHM: regular rhythm HEART SOUNDS: S1 normal heart sound present and S2 normal heart sound present PERIPHERAL PULSES: Peripheral pulses 2+ throughout GI: COMMON NORMALS: Normal to inspection, nondistended, normoactive bowel sounds present, Soft to palpation, non-tender and no masses PALPATION: Yes Soft to palpation : COMMON NORMALS: Yes no CVA tenderness BLADDER/KIDNEY EXAM: Yes no CVA tenderness Back/Pelvis: COMMON NORMALS: no CVA tenderness Extremity: NARRATIVE EXTREMITY EXAM: Right hip?soft tissue tenderness upon palpation over lateral aspect of hip. Neurovascular intact distally. Neuro: COMMON NORMALS: patient oriented x3 and moves all extremities SENSORIUM/ORIENTATION: Yes alert Skin: GENERAL SKIN EXAM: dry skin Course Vital Signs: Vital signs: Vital Signs Temperature 97.9 F 07/21/20 21:44 Pulse Rate 89 07/21/20 20:45 Respiratory Rate 16 07/21/20 21:44 Blood Pressure 130/86 07/21/20 20:45 Pulse Oximetry 97 07/21/20 21:44 MDM - Extremity (Nontraumatic) MDM Narrative: Medical decision making narrative: Patient is a 40-year-old female comes to the ED with right hip pain. No injury, accident or fall to cause pain. Soft tissue tenderness upon palpation over lateral aspect of hip. neurovascular distally intact. X-ray right hip shows no acute fractures or findings. Patient was follow-up with medical provider as directed. Take medications as prescribed. Return to the ER or your medical provider if condition worsens. Please read and understand discharge instructions. If any questions, please ask. With a prescription for cyclobenzaprine and ibuprofen 800 mg. She told to rest and ice right hip. Follow-up with PCP in 7 to 10 days. Turn to ED precautions given. Patient understood agree with plan. Imaging Data^: Xray Ortho: Attestation: I personally reviewed and interpreted this imaging study as follows: My impression: Right hip x-ray?no acute fractures or findings seen. Discharge Plan Discharge Patient Disposition: Home Clinical Impression: Hip pain, right Condition: Stable Prescriptions: New ibuprofen 800 mg tablet 800 mg PO Q8H PRN (Reason: pain) Qty: 30 RF: 0 cyclobenzaprine 5 mg tablet 5 mg PO Q8H Qty: 20 RF: 0 No Action albuterol sulfate 90 mcg/actuation HFA aerosol inhaler 90 g INHALATION PRN PRN (Reason: Shortness Of Breath) RF: 0 ondansetron HCl 8 mg tablet 8 mg PO Q8H PRN (Reason: NAUSEA/VOMITING) RF: 0 fluoxetine [Prozac] 20 mg capsule 20 mg PO QAM Qty: 30 RF: 2 rosuvastatin [Crestor] 5 mg tablet 5 mg PO DAILY Qty: 30 RF: 5 potassium chloride 10 mEq tablet,ER particles/crystals 10 meq PO DAILY Qty: 30 RF: 5 doxepin 10 mg capsule 10 mg PO DAILY Qty: 30 RF: 5 nystatin 100,000 unit/gram powder 1 applic TOPICAL TID Qty: 60 RF: 0 furosemide 20 mg tablet 20 mg PO DAILY RF: 0 Protonix 40 mg tablet,delayed release (DR/EC) 40 mg PO DAILY Qty: 60 RF: 0 cyclobenzaprine 10 mg Tablet 10 mg PO BID PRN (Reason: pain) RF: 0 tizanidine 2 mg tablet 2 mg PO BEDTIME RF: 0 isosorbide dinitrate 30 mg tablet 15 mg PO DAILY RF: 0 Discharge Orders: Discharge Order (Routine); Ordered 07/21/20 Ordered By: Yrn Walker Referrals: Flakita Kerr FNP-C [Primary Care Provider] - Discharge Diet: Regular Discharge Activity: Increase activity as tolerated Activity Restrictions/Additional Instructions: Follow-up with medical provider as directed in 7 to 10 days. Rest and ice right hip. Take medications as prescribed. Cyclobenzaprine is a muscle relaxer which he can take at night before bed because it can cause some drowsiness. If you take the cyclobenzaprine do not take your previously prescribed tizanidine. Both cyclobenzaprine and tizanidine are muscle relaxers so do not take both. return to the ER or your medical provider if condition worsens. Please read and understand discharge instructions. If any questions, please ask. Coding Level of Care Code ED Compound Worker for [place] Exam Comprehensive
[2020-07-21 21:44] VITALS: RESP 16; TEMP 36.6; O2SAT 97
[2020-07-21] MEDS: ketorolac 60 mg/2 mL INJ IM (21:44)
[2020-07-21] MEDS: orphenadrine 30 mg/mL Inj 2 mL 60 MG IM (21:44)
== END 2020-07-21 21:45 | disposition home or self-care (01) ==
PROVIDERS: Emergency Provider Physician Assistant; PCP Nurse Practitioner
DX: M25.551 Pain in right hip (principal); E78.2 Mixed hyperlipidemia; F17.210 Nicotine dependence, cigarettes, uncomplicated
CPT/HCPCS: 12345; 73502; 96372; 99281; 99283; J1885; J2360

== ENCOUNTER → 2020-07-27 08:22 | Outpatient (BNVA) | payer MEDICARE, MEDICAID, SELFPAY ==
[2020-06-15 08:53] VITALS: BP 107/72; BMI 35.9
== END ==
PROVIDERS: PCP Nurse Practitioner; Visit Provider Nurse Practitioner Psychiatric/Mental Health
DX: F43.12 Post-traumatic stress disorder, chronic (principal); F02.80 Dementia in other diseases classified elsewhere, unspecified severity, without behavioral disturbance, psychotic disturbance, mood disturbance, and anxiety; F17.200 Nicotine dependence, unspecified, uncomplicated; S06.9X9S Unspecified intracranial injury with loss of consciousness of unspecified duration, sequela
CPT/HCPCS: G0463

== ENCOUNTER 2020-07-28 20:32 | Emergency (ER) | payer MEDICARE, MEDICAID, SELFPAY ==
[2020-06-15 08:53] VITALS: BP 107/72; BMI 35.9
[2020-07-28 20:33] VITALS: BP 158/99; PULSE 82; RESP 20; TEMP 36.8; O2SAT 97; BMI 44.4
--- NOTE | 2020-07-28 20:38 | ECG_ITS ---
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 Measurements Intervals [place] Rate: 77 P: 55 WY: 148 QRS: 35 QRSD: 84 T: 30 QT: 320 QTc: 363 Interpretive Statements SINUS RHYTHM NONSPECIFIC T-WAVE ABNORMALITY Compared to ECG 06/02/2019 19:59:37 T-wave abnormality now present Electronically Signed On 07-29-2020 21:59:05 CIRCLE EDGER by Kash Al M.D. [id number] f
--- NOTE | 2020-07-28 20:38 | XR_ITS ---
WS: [id number] Exam: XR chest 1V portable [id number] Date/Time of Exam: 07/28/2020 8:49 PM Reason For Exam: Chest pain Comparison 05/03/2020. The lungs are clear and fully expanded. Normal cardiomediastinal structures. Bony elements are intact . Postoperative change involving both distal clavicles. XR/XR chest 1V portable [id number] IMPRESSION: 1. No acute cardiopulmonary finding.
--- NOTE | 2020-07-28 20:41 | W.ED.CHESTPA ---
HPI - Chest Pain General: Chief Complaint: Chest Pain Stated Complaint: CP/SOB Time Seen by Provider: 07/28/20 20:37 Source: patient and EMS Mode of arrival: EMS Limitations: no limitations History of Present Illness: HPI narrative: Dannielle is a nice 40-year-old female who comes in complaining of chest pain. Patient states that she got into an argument with her family tonight over her mother's ashes. Patient states that she became upset and had sharp upper chest pain. EMS was called and stated in route the patient had reproducible chest wall pain. She had no other complaints such as shortness of breath, diaphoresis or radiation of her pain. Patient confirms all these findings. Patient denies any history of heart disease. Patient when asked wants to talk more about how upset she is with her sister for not letting her have some of her mother's ashes. Patient has no pain at rest but only with coughing, deep breathing and pushing on her chest. EMS reports no response to nitroglycerin in route. Associated symptoms: Deny abdominal pain, diaphoresis, dyspnea, fever(s), nausea, palpitations, syncope or vomiting Review of Systems Const: Denies: fever(s), chills, body aches, fatigue, malaise or diaphoresis Eyes: Denies: change in vision, blurry vision, photophobia, eye discomfort, eye discharge, eye redness or yellow eyes ENMT: Denies: throat pain, odynophagia, hoarseness, swelling of lips/tongue, ear or mastoid pain, ear discharge, change in hearing or nasal discharge Card: Reports: chest pain; Denies: palpitations, irregular heart rhythm, edema, lightheadedness, syncope, pre-syncope, dyspnea on exertion or orthopnea Resp: Denies: dyspnea, productive cough, non-productive cough, wheezing, hemoptysis or chest congestion GI: Denies: abdominal pain, nausea, vomiting, hematemesis, coffee ground emesis, heartburn, diarrhea, constipation, GI cramping, hematochezia or melena : Denies: flank pain, dysuria, urinary frequency, urinary urgency or hematuria Musc: Denies: neck pain, back pain, extremity pain, extremity swelling, joint pain, joint swelling, joint redness, joint warmth or joint stiffness Skin/Breast: Denies: rash, pruritus, erythema, skin pain or skin tenderness Neuro: Denies: headache(s), numbness in extremities, weakness in extremities, sensory changes, lack of coordination, difficulty walking, dizziness, vertigo, confusion, Slurred speech present or seizure-like activity Abe/Lymph: Denies: easy bruising, easy bleeding, petechiae, purpura or enlarged lymph nodes All/Imm: Denies: urticaria, throat swelling, tongue swelling, facial swelling or acute wheezing PFSH ED PFSH: Medical History (Updated 07/28/20 @ 23:01 by Keily Quiros) Acid reflux Asthma due to environmental allergies Asthma with acute exacerbation Chronic post-traumatic stress disorder (PTSD) Hypokalemia 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 Mixed hyperlipidemia Morbid obesity with BMI of 45.0-49.9, adult PTSD (post-traumatic stress disorder) Seasonal allergic rhinitis Sleep difficulties Tobacco use disorder Urinary hesitancy Surgical History History of bilateral knee arthroplasty History of carpal tunnel surgery of right wrist 2020 History of hysterectomy with bilateral oophorectomy History of skin graft On bilateral legs History of umbilical hernia repair Family History Mother Cancer Diabetes Brother Cancer Diabetes Social History Smoking and tobacco status: current every day smoker cigarettes Packs smoked per day: 1 Years cigarettes smoked: 27 Quit status (tobacco): considering quitting Second hand smoke exposure: No Smoking risk assessment/counseling performed?: No Alcohol intake: never Desire information about alcohol rehabilitation?: No Counseling given: No Desire information about substance/drug rehabilitation?: No Counseling given: No Adopted: Yes Caregiver/support person: No Lives independently: Yes Household members: significant other Housing: House Marital status: Single Number of children: 0 Number of grandchildren: 0 Highest education level completed: High School Graduate service: No Current occupational status: disabled Pets and animals: Yes Pets & animals: dog(s) Pets & animal details: su History of recent travel: No Leisure activites: exercise Sexually active: Yes Current gender identity: Female /Uatsdin: Nondenominational Special needs: No Agree to transfusion: Yes Financial difficulty paying for basics: Not Very Hard Physical Exam Const: COMMON NORMALS: no acute distress, patient oriented x3, no limitations and alert GENERAL APPEARANCE: cooperative HENMT: COMMON NORMALS: normocephalic, atraumatic, external ears normal, EAC's normal and Normal external nose present HEAD & SCALP: normal to inspection, normocephalic and atraumatic FACE & SINUS: normal facial exam and face symmetric NOSE: Normal external nose present and Normal nares present EXTERNAL EAR: Yes external ears normal EXTERNAL AUDITORY CANAL: EAC's normal MOUTH: Normal oral and palatal mucosa present, lip normal and tongue normal Eye: COMMON NORMALS: Equal, round and reactive pupils present and conjunctivae normal GENERAL EYE: appearance normal, both eyes and all related structures ALIGNMENT: Yes alignment normal PERIORBITAL: periorbital findings normal EYELID: eyelids normal CONJUNCTIVA: Yes conjunctivae normal SCLERA: sclerae normal PUPIL: Yes Equal, round and reactive pupils present Neck/C-Spine: COMMON NORMALS: full ROM, no lymphadenopathy, supple, no meningeal signs and no JVD GENERAL: Yes normal visual inspection and Yes trachea midline Chest: COMMONS NORMALS: normal inspection of the chest CHEST: Yes localized rib tenderness with anteroposterior compression Resp: COMMON NORMALS: normal respiratory effort, No retractions, No use of accessory muscles and clear to auscultation bilaterally EFFORT & INSPECTION: Yes able to speak in complete sentences and Yes symmetric chest movement AUSCULTATION: clear to auscultation bilaterally, no crackles, no rales, no rhonchi and no wheezes Cardio: COMMON NORMALS: no JVD, regular rate, regular rhythm, S1 normal heart sound present and S2 normal heart sound present RATE: regular rate RHYTHM: regular rhythm HEART SOUNDS: S1 normal heart sound present, S2 normal heart sound present, no click, no gallops, no murmurs and no rubs GI: COMMON NORMALS: Soft to palpation and No hepatosplenomegaly present PALPATION: Yes Soft to palpation, No Tenderness to palpation present (GI), No Guarding due to palpation present (GI), No Rigid due to palpation, Yes No hepatosplenomegaly present, No Hernia present, No Palpable mass present and No Pulsatile mass present : COMMON NORMALS: Yes no CVA tenderness BLADDER/KIDNEY EXAM: Yes no CVA tenderness EXTERNAL FEMALE EXAM: No Hernia present Back/Pelvis: COMMON NORMALS: no CVA tenderness, thoracic and lumbar spine normal to inspection, no thoracic nor lumbar tenderness and thoraco-lumbar ROM normal Extremity: COMMON NORMALS: normal to inspection, full ROM, capillary refill normal, no joint enlargement, no clubbing, cyanosis or edema and no calf tenderness Neuro: COMMON NORMALS: patient oriented x3, CN's II-XII intact bilaterally, moves all extremities, no focal motor deficits and no sensory deficits noted SENSORIUM/ORIENTATION: Yes alert MENINGEAL SIGNS: Yes no meningeal signs SPEECH: speech normal Psych: COMMON NORMALS: mental status grossly normal, Normal thought process present, cooperative, normal affect, speech normal and activity/motor behavior normal SPEECH: Yes normal speech THOUGHT PROCESS: Normal thought process present Skin: COMMON NORMALS: no rashes or lesions noted, turgor normal, no jaundice, no petechiae and no mottling GENERAL SKIN EXAM: no rashes or lesions noted and turgor normal Course Vital Signs: Vital signs: Vital Signs Temperature 98.2 F 07/28/20 20:33 Pulse Rate 81 07/28/20 22:21 Respiratory Rate 18 07/28/20 22:21 Blood Pressure 137/75 07/28/20 22:21 Pulse Oximetry 94 07/28/20 22:21 MDM - Chest Pain MDM Narrative: Medical decision making narrative: 2301 -Jeet is a very nice 40-year-old female who comes in complaining of chest pain. Her pain seems to be more chest wall related. Pain is reproducible palpation. Her heart score is 0. I recommended and offered to keep the patient for further testing but she refuses. At this time she is feeling better and she would like to go home. Patient was welcome to return at any time should she change her mind or her symptoms change/worsen. Lab Data: Attestation: I reviewed the patient's lab results. Labs: Lab Results 07/28/20 07/28/20 07/28/20 Range/Units 21:17 21:30 21:30 WBC 8.8 (4.0-10.0) 10^3/ uL RBC 4.65 (4.1-5.3) 10^6/u L Hgb 13.8 (11.5-15.3) g/dL Hct 44.7 (37.0-47.0) % MCV 96.1 (81-99) fL MCH 29.7 (28.0-34.0) pg MCHC 30.9 (30.0-36.0) g/dL RDW 13.2 (12.1-15.1) % Plt Count 231 (130-400) 10^3/c mm MPV 11.9 H (7.4-10.4) fL Neut % (Auto) 51.9 % Lymph % (Auto) 33.4 % Beadle % (Auto) 9.4 % Eos % (Auto) 3.7 % Baso % (Auto) 1.4 % Neut # (Auto) 4.58 (1.8-7.7) 10^3/u L Lymph # (Auto) 3.0 (0.8-4.8) 10^3/u L Beadle # (Auto) 0.8 (0.2-0.9) 10^3/u L Eos # (Auto) 0.3 (0.0-0.8) 10^3/u L Baso # (Auto) 0.1 (0.0-0.1) 10^3/u L Nucleated RBC % (a uto) 0 % Nucleated RBCs # 0.0 /100WBC D-Dimer (0-0.59) ug/mIFE U Sodium 144 (136-145) mmol/L Potassium 3.8 (3.5-5.1) mmol/L Chloride 106 (98-107) mmol/L Carbon Dioxide 28 (22-29) mmol/L Anion Gap 13.8 (5-19) BUN 12 (6-20) mg/dL Creatinine 1.1 H (0.5-0.9) mg/dL GFR Calculation 55.0 L (90-130) mL/min Glucose 115 (65-115) mg/dL Calculated Osmolal ity 299 H (285-295) mOsm/k g Calcium 9.3 (8.5-10.5) mg/dL Magnesium 2.1 (1.7-2.3) mg/dL Total Bilirubin 0.5 (0.15-1.2) mg/dL AST 19 (0-32) U/L ALT 20 (0-33) U/L Alkaline Phosphata se 97 (35-105) IU/L Troponin T Baselin e (0-10) ng/L Total Protein 6.5 L (6.6-8.7) g/dL Albumin 4.2 (3.5-5.2) g/dL Globulin 2.3 (1.3-4.6) g/dL Lipase 27 (13-60) U/L HCG, Qual (Negative) Urine Color Yellow (Yellow) Urine Appearance Clear (CLEAR) Urine pH 5.0 (5-7) Ur Specific Gravit y 1.010 (1.005-1.030) Urine Protein Neg (Negative) Urine Glucose (UA) Norm (Normal) Urine Ketones Negative (Negative) Urine Blood Neg (Negative) Urine Nitrate Negative (Negative) Urine Bilirubin Neg (Negative) Urine Urobilinogen Norm (Negative) mg/dL Ur Leukocyte Josey ase Negative (Negative) 07/28/20 07/28/20 07/28/20 Range/Units 21:30 21:30 21:30 WBC (4.0-10.0) 10^3/ uL RBC (4.1-5.3) 10^6/u L Hgb (11.5-15.3) g/dL Hct (37.0-47.0) % MCV (81-99) fL MCH (28.0-34.0) pg MCHC (30.0-36.0) g/dL RDW (12.1-15.1) % Plt Count (130-400) 10^3/c mm MPV (7.4-10.4) fL Neut % (Auto) % Lymph % (Auto) % Beadle % (Auto) % Eos % (Auto) % Baso % (Auto) % Neut # (Auto) (1.8-7.7) 10^3/u L Lymph # (Auto) (0.8-4.8) 10^3/u L Beadle # (Auto) (0.2-0.9) 10^3/u L Eos # (Auto) (0.0-0.8) 10^3/u L Baso # (Auto) (0.0-0.1) 10^3/u L Nucleated RBC % (a uto) % Nucleated RBCs # /100WBC D-Dimer 0.28 (0-0.59) ug/mIFE U Sodium (136-145) mmol/L Potassium (3.5-5.1) mmol/L Chloride (98-107) mmol/L Carbon Dioxide (22-29) mmol/L Anion Gap (5-19) BUN (6-20) mg/dL Creatinine (0.5-0.9) mg/dL GFR Calculation (90-130) mL/min Glucose (65-115) mg/dL Calculated Osmolal ity (285-295) mOsm/k g Calcium (8.5-10.5) mg/dL Magnesium (1.7-2.3) mg/dL Total Bilirubin (0.15-1.2) mg/dL AST (0-32) U/L ALT (0-33) U/L Alkaline Phosphata se (35-105) IU/L Troponin T Baselin e 6 (0-10) ng/L Total Protein (6.6-8.7) g/dL Albumin (3.5-5.2) g/dL Globulin (1.3-4.6) g/dL Lipase (13-60) U/L HCG, Qual Negative (Negative) Urine Color (Yellow) Urine Appearance (CLEAR) Urine pH (5-7) Ur Specific Gravit y (1.005-1.030) Urine Protein (Negative) Urine Glucose (UA) (Normal) Urine Ketones (Negative) Urine Blood (Negative) Urine Nitrate (Negative) Urine Bilirubin (Negative) Urine Urobilinogen (Negative) mg/dL Ur Leukocyte Josey ase (Negative) Imaging Data^: CXR: Attestation: I personally reviewed and interpreted this imaging study as follows: My impression: No acute cardiopulmonary findings. EKG Data^: EKG 1: Attestation: I personally reviewed and interpreted this EKG as follows: EKG interpretation date: 07/28/20 EKG interpretation time: 20:40 Interpretation: Normal sinus rhythm at 77 beats a minute, no blocks, normal axis, no acute ST-T wave changes. Discharge Plan Discharge Patient Disposition: Home Clinical Impression: Chest pain Qualifiers: Chest pain type: chest pain on breathing Qualified Code(s): R07.1 - Chest pain on breathing Condition: Stable Prescriptions: No Action albuterol sulfate 90 mcg/actuation HFA aerosol inhaler 2 puff INHALATION Q4H PRN (Reason: Shortness Of Breath) RF: 0 ondansetron HCl 8 mg tablet 8 mg PO Q8H PRN (Reason: NAUSEA/VOMITING) RF: 0 rosuvastatin [Crestor] 5 mg tablet 5 mg PO DAILY Qty: 30 RF: 5 potassium chloride 10 mEq tablet,ER particles/crystals 10 meq PO DAILY Qty: 30 RF: 5 doxepin 10 mg capsule 10 mg PO DAILY Qty: 30 RF: 5 fluoxetine [Prozac] 20 mg capsule 20 mg PO QAM Qty: 30 RF: 2 fluoxetine 10 mg capsule 10 mg PO DAILY Qty: 30 RF: 2 furosemide 20 mg tablet 20 mg PO DAILY RF: 0 famotidine 40 mg tablet 40 mg PO DAILY RF: 0 Tylenol Extra Strength 500 mg Tablet 1,000 mg PO PRN RF: 0 tamsulosin 0.4 mg capsule 0.4 mg PO DAILY RF: 0 montelukast 10 mg tablet 10 mg PO DAILY RF: 0 cyclobenzaprine 5 mg tablet 5 mg PO Q8H PRN (Reason: Muscle Spasm) RF: 0 tizanidine 2 mg tablet 2 mg PO BEDTIME RF: 0 isosorbide dinitrate 30 mg tablet 15 mg PO DAILY RF: 0 ibuprofen 800 mg tablet 800 mg PO Q8H PRN (Reason: pain) Qty: 30 RF: 0 Discharge Orders: Discharge Order (Routine); Ordered 07/28/20 Ordered By: Keily Quiros Referrals: Flakita Kerr, FABRIC INSPECTOR-C [Primary Care Provider] - 1-3 days Discharge Diet: Advance as tolerated Discharge Activity: Increase activity as tolerated Patient Instructions: Chest Pain - Chest Wall, Chest Pain (ED), Costochondritis (ED) Activity Restrictions/Additional Instructions: Please return to the ER immediately for any of the signs or symptoms listed on your discharge instruction sheets, worsening/changing of your symptoms, you are not getting better as quickly as expected, or for ANY other cause or concerns. I have recommended and offered to keep you here you further to do further testing on your heart which you have declined. Of course certain heart problems can be life-threatening so if you change your mind, your symptoms return, you develop shortness of breath, you began to sweat for no reason, or you simply change your mind you are more than welcome to return here at any time. Be certain to follow-up with Flakita Kerr as soon as possible for recheck and for further evaluation and care. Coding Level of Care Code ED Certified Solid Waste Facility Operator for Chg Fwd Exam Comprehensive
[2020-07-28] MEDS: acetaminophen 500 mg Tablet 1000 MG PO (20:56)
[2020-07-28] MEDS: sodium chloride 0.9% 1,000 ML 999 ML IV (20:57)
[2020-07-28 21:35] VITALS: BP 120/79; PULSE 73; RESP 18; O2SAT 99
[2020-07-28 22:03] LABS: HCG, Serum Qual Negative (Negative)
[2020-07-28 22:07] LABS: Alanine Aminotransferase 20 U/L (0-33); Albumin Level 4.2 g/dL (3.5-5.2); Alkaline Phosphatase 97 IU/L (35-105); Anion Gap 13.8 (5-19); Aspartate Amino Transferase 19 U/L (0-32); Blood Urea Nitrogen 12 mg/dL (6-20); Calcium 9.3 mg/dL (8.5-10.5); Carbon Dioxide 28 mmol/L (22-29); Chloride 106 mmol/L (98-107); Globulin 2.3 g/dL (1.3-4.6); Glucose 115 mg/dL (65-115); Lipase 27 U/L (13-60); Magnesium 2.1 mg/dL (1.7-2.3); Osmolality Calculated 299 mOsm/kg (285-295); Potassium 3.8 mmol/L (3.5-5.1); Sodium 144 mmol/L (136-145); Total Bilirubin 0.5 mg/dL (0.15-1.2); Total Protein 6.5 g/dL (6.6-8.7)
[2020-07-28 22:13] LABS: Troponin(5th) Baseline 6 ng/L (0-10)
[2020-07-28 22:18] LABS: Add Urine Microscopic? NO
[2020-07-28 22:21] VITALS: BP 137/75; PULSE 81; RESP 18; O2SAT 94
[2020-07-28 22:27] LABS: Basophils # 0.1 10^3/uL (0.0-0.1); Basophils % 1.4 %; Eosinophils # 0.3 10^3/uL (0.0-0.8); Eosinophils % 3.7 %; Hematocrit 44.7 % (37.0-47.0); Hemoglobin 13.8 g/dL (11.5-15.3); Lymphocytes % 33.4 %; Mean Corpuscular HGB Conc 30.9 g/dL (30.0-36.0); Mean Corpuscular Hemoglobin 29.7 pg (28.0-34.0); Mean Corpuscular Volume 96.1 fL (81-99); Mean Platelet Volume 11.9 fL (7.4-10.4); Monocytes # 0.8 10^3/uL (0.2-0.9); Monocytes % 9.4 %; Neutrophils # 4.58 10^3/uL (1.8-7.7); Neutrophils % 51.9 %; Nucleated Red Blood Cells % 0 %; Platelet Count 231 10^3/cmm (130-400); Red Blood Count 4.65 10^6/uL (4.1-5.3); Red Cell Distribution Width 13.2 % (12.1-15.1); White Blood Count 8.8 10^3/uL (4.0-10.0)
[2020-07-28 22:45] LABS: Urine Appearance Clear (CLEAR); Urine Color Yellow (Yellow)
[2020-07-28 22:46] LABS: Bilirubin Urine Neg (Negative); Blood Urine Neg (Negative); Glucose Urine UA Norm (Normal); Ketones Urine Negative (Negative); Leukocyte Esterase Urine Negative (Negative); Nitrate Urine Negative (Negative); Protein Urine Neg (Negative); Urobilinogen Urine Norm (Negative)
[2020-07-28 22:54] LABS: D Dimer 0.28 ug/mIFEU (0-0.59)
[2020-07-28 23:27] VITALS: BP 146/77; PULSE 77; RESP 18; O2SAT 94
== END 2020-07-28 23:27 | disposition home or self-care (01) ==
PROVIDERS: Emergency Provider Emergency Medicine; PCP Nurse Practitioner
DX: R07.1 Chest pain on breathing (principal); F17.210 Nicotine dependence, cigarettes, uncomplicated; E78.2 Mixed hyperlipidemia
CPT/HCPCS: 12345; 36415; 71045; 80053; 81003; 83690; 83735; 84484; 84703; 85025; 85378; 93005; 96360; 99282; 99284; J7030

== ENCOUNTER → 2020-08-03 10:54 | Outpatient (BNVA) | payer MEDICARE, MEDICAID, SELFPAY ==
[2020-08-03 09:05] VITALS: BP 107/72; BMI 35.9
== END ==
PROVIDERS: PCP Nurse Practitioner; Visit Provider Nurse Practitioner Family
DX: Z20.828 Contact with and (suspected) exposure to other viral communicable diseases (principal); R05 Cough
CPT/HCPCS: 87635

== ENCOUNTER → 2020-08-25 11:50 | Outpatient (BNVA) | payer MEDICARE, MEDICAID, SELFPAY ==
[2020-08-12 09:31] VITALS: BP 107/72; BMI 35.9
== END ==
PROVIDERS: PCP Nurse Practitioner; Visit Provider Family Medicine
DX: E78.2 Mixed hyperlipidemia (principal); E66.01 Morbid (severe) obesity due to excess calories; Z68.42 Body mass index [BMI] 45.0-49.9, adult; G56.02 Carpal tunnel syndrome, left upper limb; M79.643 Pain in unspecified hand
CPT/HCPCS: 80053; 80061; 84443; 85025

== ENCOUNTER → 2020-09-20 15:12 | Outpatient (BNVA) | payer MEDICARE, MEDICAID, SELFPAY ==
[2020-08-12 09:31] VITALS: BP 107/72; BMI 35.9
== END ==
PROVIDERS: PCP Nurse Practitioner; Visit Provider Nurse Practitioner
DX: R20.2 Paresthesia of skin (principal); R60.0 Localized edema; E87.6 Hypokalemia; M79.18 Myalgia, other site; Z79.899 Other long term (current) drug therapy
CPT/HCPCS: 82607

== ENCOUNTER 2020-10-07 21:33 | Emergency (ER) | payer MEDICARE, MEDICAID, SELFPAY ==
[2020-08-12 09:31] VITALS: BP 107/72; BMI 35.9
[2020-10-07 21:38] VITALS: BP 150/97; PULSE 87; RESP 18; TEMP 36.7; O2SAT 97
[2020-10-07 21:43] VITALS: BP 176/101; PULSE 84; PULSE 86; RESP 16; O2SAT 96
[2020-10-07 21:52] VITALS: BP 138/92
--- NOTE | 2020-10-07 21:56 | ED_ITS ---
HPI - Extremity Problem General: Chief complaint: Extremity Problem,Nontraumatic Stated complaint: PAIN GOING UP L ARM Time Seen by Provider: 10/07/20 21:45 History of Present Illness: HPI Narrative: Patient is a 40-year-old female comes to the ED with pain in left arm. Symptoms started last night while she was sleeping. She describes pain as sharp pain that starts in the wrist and radiates into the elbow. Denies any trauma, fall or injury to cause pain. She has not taken any ensx-uui-rbbkgde pain meds before coming to the ED. denies chest pain, shortness of breath, upper extremity edema. Associated symptoms: Deny chest pain, fever(s) or rash Review of Systems Const: Denies: fever(s), chills or fatigue Eyes: Denies: change in vision or eye discomfort ENMT: Denies: throat pain, odynophagia, nasal discharge or nasal congestion Card: Denies: chest pain, palpitations, edema, swelling of feet/ankles, dyspnea on exertion or orthopnea Resp: Denies: dyspnea, productive cough or non-productive cough GI: Denies: abdominal pain, nausea, vomiting, diarrhea, constipation or hematochezia : Denies: flank pain, dysuria or hematuria Musc: Reports: extremity pain (Pain in left wrist that radiates to the elbow.); Denies: neck pain, back pain or extremity swelling Skin/Breast: Denies: rash or new lesions Neuro: Denies: headache(s), numbness in extremities or weakness in extremities PFS ED PFSH: Medical History Acid reflux Asthma due to environmental allergies Asthma with acute exacerbation Chronic post-traumatic stress disorder (PTSD) Edema of extremity Hypokalemia 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 Mixed hyperlipidemia Morbid obesity with BMI of 45.0-49.9, adult PTSD (post-traumatic stress disorder) Seasonal allergic rhinitis Sleep difficulties Tobacco use disorder Urinary hesitancy Surgical History History of bilateral knee arthroplasty History of carpal tunnel surgery of right wrist 2020 History of hysterectomy with bilateral oophorectomy History of skin graft On bilateral legs History of umbilical hernia repair Family History Mother Cancer Diabetes Brother Cancer Diabetes Social History Smoking and tobacco status: current every day smoker cigarettes Packs smoked per day: 1 Years cigarettes smoked: 27 Quit status (tobacco): considering quitting Second hand smoke exposure: No Smoking risk assessment/counseling performed?: No Alcohol intake: never Desire information about alcohol rehabilitation?: No Counseling given: No Desire information about substance/drug rehabilitation?: No Counseling given: No Adopted: Yes Caregiver/support person: No Lives independently: Yes Household members: significant other Housing: House Marital status: Single Number of children: 0 Number of grandchildren: 0 Highest education level completed: High School Graduate service: No Current occupational status: disabled Pets and animals: Yes Pets & animals: dog(s) Pets & animal details: [id number] History of recent travel: No Leisure activites: exercise Sexually active: Yes Current gender identity: Female /Alevism: Anabaptism Special needs: No Agree to transfusion: Yes Financial difficulty paying for basics: Not Very Hard Physical Exam Const: COMMON NORMALS: no acute distress, patient oriented x3 and alert GENERAL APPEARANCE: cooperative and comfortable NUTRITIONAL APPEARANCE: obese HENMT: COMMON NORMALS: normocephalic HEAD & SCALP: normocephalic MOUTH: Normal oral and palatal mucosa present THROAT: posterior oropharynx normal and uvula midline Neck/C-Spine: COMMON NORMALS: supple GENERAL: Yes normal visual inspection Resp: COMMON NORMALS: normal respiratory effort, No retractions, No use of accessory muscles and clear to auscultation bilaterally AUSCULTATION: clear to auscultation bilaterally Cardio: COMMON NORMALS: regular rate, regular rhythm, S1 normal heart sound present, S2 normal heart sound present, No gallops present (Cardio), No clicks present (Cardio), No murmurs present (Cardio) and Peripheral pulses 2+ throughout RATE: regular rate RHYTHM: regular rhythm HEART SOUNDS: S1 normal heart sound present and S2 normal heart sound present PERIPHERAL PULSES: Peripheral pulses 2+ throughout GI: COMMON NORMALS: Normal to inspection, nondistended, normoactive bowel sounds present, Soft to palpation, non-tender and no masses INSPECTION: Yes central obesity PALPATION: Yes Soft to palpation : COMMON NORMALS: Yes no CVA tenderness BLADDER/KIDNEY EXAM: Yes no CVA tenderness Back/Pelvis: COMMON NORMALS: no CVA tenderness Extremity: GENERAL: Yes normal exam except as noted LEFT UPPER EXTREMITY: Yes wrist Left wrist: Yes neurovascular exam (intact. Radial Pulse 2+) and Yes special tests Left wrist special tests: Phalen's test: Positive Neuro: COMMON NORMALS: patient oriented x3 and moves all extremities SENSORIUM/ORIENTATION: Yes alert Skin: GENERAL SKIN EXAM: dry skin Course Vital Signs: Vital signs: Vital Signs Temperature 98.1 F 10/07/20 21:38 Pulse Rate 74 10/07/20 22:14 Respiratory Rate 16 10/07/20 22:14 Blood Pressure 139/92 10/07/20 22:14 Pulse Oximetry 100 10/07/20 22:14 MDM - Extremity (Nontraumatic) MDM Narrative: Medical decision making narrative: Patient is a 40-year-old female comes to the ED with round traumatic left wrist pain that radiates up into her elbow. Symptoms started last night while she was sleeping and she denies any fall or trauma to cause pain. Denies chest pain, shortness of breath or left arm swelling. Patient has full range of motion of left wrist and radial pulse 2+. Positive Phalen's test on left wrist suggestive of carpal tunnel syndrome as cause of pain. Patient was given a shot of Toradol while here in the ED and discharge. She was told to follow-up with PCP in 7 to 10 days for reevaluation. Take swhj-jkk-udwjpsp ibuprofen for pain and inflammation. Ice left wrist and I discussed with her about purchasing wrist brace at her local pharmacy to help with symptoms. Return to ED precautions given. Patient understood and agree with plan. Discharge Plan Discharge Patient Disposition: Home Clinical Impression: Carpal tunnel syndrome of left wrist Condition: Stable Prescriptions: No Action albuterol sulfate 90 mcg/actuation HFA aerosol inhaler 2 puff INHALATION Q4H PRN (Reason: Shortness Of Breath) RF: 0 ondansetron HCl 8 mg tablet 8 mg PO Q8H PRN (Reason: NAUSEA/VOMITING) RF: 0 rosuvastatin [Crestor] 5 mg tablet 5 mg PO DAILY Qty: 30 RF: 5 Hold Instructions: Patient No Longer Taking furosemide 20 mg tablet 20 mg PO DAILY Qty: 30 RF: 5 montelukast 10 mg tablet 10 mg PO DAILY Qty: 30 RF: 5 potassium chloride 10 mEq tablet,ER particles/crystals 10 meq PO DAILY Qty: 30 RF: 5 tizanidine 2 mg tablet 2 mg PO BEDTIME Qty: 30 RF: 5 fluoxetine [Prozac] 20 mg capsule 20 mg PO QAM Qty: 30 RF: 2 fluoxetine 10 mg capsule 10 mg PO DAILY Qty: 30 RF: 2 famotidine 40 mg tablet 40 mg PO DAILY RF: 0 Tylenol Extra Strength 500 mg Tablet 1,000 mg PO PRN RF: 0 tamsulosin 0.4 mg capsule 0.4 mg PO DAILY RF: 0 isosorbide dinitrate 30 mg tablet 15 mg PO DAILY RF: 0 ibuprofen 800 mg tablet 800 mg PO Q8H PRN (Reason: pain) Qty: 30 RF: 0 Discharge Orders: Discharge ED (Routine); Ordered 10/07/20 Ordered By: Yrn Walker Referrals: Flakita Kerr FNP-C [Primary Care Provider] - Discharge Diet: Regular Discharge Activity: Increase activity as tolerated Patient Instructions: Carpal Tunnel Syndrome Exercises (GEN), Carpal Tunnel Syndrome (ED) Activity Restrictions/Additional Instructions: Follow-up with medical provider as directed in 7 to 10 days for reevaluation. Rest, ice and take pidw-hjt-mudrise ibuprofen to help with pain and inflammation. You can purchase rezx-all-owybwde wrist braces to help with sympt oms at local pharmacy. Continue taking all home medications as prescribed. Return to the ER or your medical provider if condition worsens. Please read and understand discharge instructions. If any questions, please ask. Coding Level of Care Code ED President Celebrity Acquistion for Aj [place] Exam Comprehensive
[2020-10-07] MEDS: ketorolac 60 mg/2 mL INJ IM (22:04)
[2020-10-07 22:14] VITALS: BP 139/92; PULSE 74; RESP 16; O2SAT 100
== END 2020-10-07 22:15 | disposition home or self-care (01) ==
PROVIDERS: Emergency Provider Physician Assistant; PCP Nurse Practitioner
DX: G56.02 Carpal tunnel syndrome, left upper limb (principal); E78.2 Mixed hyperlipidemia; F17.210 Nicotine dependence, cigarettes, uncomplicated
CPT/HCPCS: 12345; 96372; 99281; 99283; J1885

== ENCOUNTER 2020-10-20 10:19 | Outpatient (RCR) | payer MEDICARE, MEDICAID, SELFPAY ==
[2020-08-12 09:31] VITALS: BP 107/72; BMI 35.9
== END 2020-11-07 23:59 | disposition home or self-care (01) ==
LOC: SPT 10:19
PROVIDERS: PCP Nurse Practitioner; Referring Provider Nurse Practitioner Family; Visit Provider Nurse Practitioner Family
DX: H81.10 Benign paroxysmal vertigo, unspecified ear (principal); R42 Dizziness and giddiness
CPT/HCPCS: 95992; 97161

== ENCOUNTER → 2020-10-21 09:10 | Outpatient (BNVA) | payer MEDICARE, MEDICAID, SELFPAY ==
[2020-08-12 09:31] VITALS: BP 107/72; BMI 35.9
== END ==
PROVIDERS: PCP Nurse Practitioner; Visit Provider Nurse Practitioner Psychiatric/Mental Health
DX: F43.12 Post-traumatic stress disorder, chronic (principal); S06.9X9S Unspecified intracranial injury with loss of consciousness of unspecified duration, sequela; F02.80 Dementia in other diseases classified elsewhere, unspecified severity, without behavioral disturbance, psychotic disturbance, mood disturbance, and anxiety; F17.200 Nicotine dependence, unspecified, uncomplicated
CPT/HCPCS: 99213

== ENCOUNTER 2020-10-30 19:56 | Emergency (ER) | payer MEDICARE, MEDICAID, SELFPAY ==
[2020-08-12 09:31] VITALS: BP 107/72; BMI 35.9
[2020-10-30 20:09] VITALS: BP 135/92; PULSE 108; RESP 15; TEMP 36.5; O2SAT 97
--- NOTE | 2020-10-30 20:16 | XRR_ITS ---
PROCEDURE INFORMATION: Exam: XR Chest, 1 View Exam date and time: 10/30/2020 8:18 PM Age: 40 years old Clinical indication: Chest pain TECHNIQUE: Imaging protocol: XR of the chest Views: 1 view. COMPARISON: CR XR chest 1V portable [id number] 07/28/2020 8:46 PM FINDINGS: Lung volumes are low and there are artifacts from patient body habitus, limiting assessment. Otherwise no focal pulmonary consolidation is demonstrated on this single frontal image. No significant obscuration of the lateral costophrenic angles is demonstrated. No significant vascular congestion is demonstrated. Visualized cardiac silhouette size appears mildly enlarged. XR/XR chest 1V portable [id number] IMPRESSION: No definite acute pulmonary process is demonstrated. Visualized cardiac silhouette size appears mildly enlarged.
[2020-10-30 20:22] VITALS: BP 121/81; PULSE 100; RESP 22; O2SAT 96
--- NOTE | 2020-10-30 20:27 | ED_ITS ---
HPI - Chest Pain General: Chief Complaint: Chest Pain Stated Complaint: CP Time Seen by Provider: 10/30/20 20:16 Source: patient Mode of arrival: ambulatory Limitations: no limitations History of Present Illness: HPI narrative: Patient is a 40-year-old female who presents to ED today for evaluation of chest pain. Patient tells me her chest pain initially began 2 to 3 hours ago at rest. She states the pain is located substernally with no radiation. She is not having nausea, shortness of breath, difficulty breathing, sweats. Patient tells me she has had this identical pain several times previously. She tells me she has seen Dr. Mehta previously but tells me they have not found anything wrong with her heart. Patient denies any alleviating or worsening factors to her discomfort. MD complaint: chest pain Onset (ago): hour(s) Timing of current episode: constant Prior episodes: Yes Onset: during rest Pain location: substernal Pain radiation: none Severity: mild Exacerbating factors: nothing Associated symptoms: Reports no associated symptoms; Deny abdominal pain, dyspnea, fever(s), nausea, palpitations, syncope or vomiting Treatment prior to arrival: none Risk Factors: Coronary artery disease risk factors: smoking history, hyperlipidemia and hypertension Thoracic aortic dissection risk factors: none Related Data: On Oral Contraceptives: No Review of Systems Const: Denies: fever(s), chills, body aches, fatigue or malaise Eyes: Denies: change in vision, blurry vision or photophobia Card: Reports: chest pain; Denies: palpitations, irregular heart rhythm, edema, swelling of feet/ankles, lightheadedness, syncope, pre-syncope, dyspnea on exertion, orthopnea or leg pain with exertion Resp: Denies: dyspnea, productive cough, non-productive cough, hemoptysis or chest congestion GI: Denies: abdominal pain, nausea or vomiting Musc: Denies: neck pain or back pain Neuro: Denies: headache(s) PFSH ED PFSH: Medical History Acid reflux Asthma due to environmental allergies Asthma with acute exacerbation Chronic post-traumatic stress disorder (PTSD) Edema of extremity Hypokalemia 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 Mixed hyperlipidemia Morbid obesity with BMI of 45.0-49.9, adult PTSD (post-traumatic stress disorder) Seasonal allergic rhinitis Sleep difficulties Tobacco use disorder Urinary hesitancy Surgical History History of bilateral knee arthroplasty History of carpal tunnel surgery of right wrist 2020 History of hysterectomy with bilateral oophorectomy History of skin graft On bilateral legs History of umbilical hernia repair Family History Mother Cancer Diabetes Brother Cancer Diabetes Social History Smoking and tobacco status: current every day smoker cigarettes Packs smoked per day: 1 Years cigarettes smoked: 27 Quit status (tobacco): considering quitting Second hand smoke exposure: No Smoking risk assessment/counseling performed?: No Alcohol intake: never Desire information about alcohol rehabilitation?: No Counseling given: No Desire information about substance/drug rehabilitation?: No Counseling given: No Adopted: Yes Caregiver/support person: No Lives independently: Yes Household members: significant other Housing: House Marital status: Single Number of children: 0 Number of grandchildren: 0 Highest education level completed: High School Graduate service: No Current occupational status: disabled Pets and animals: Yes Pets & animals: dog(s) Pets & animal details: su History of recent travel: No Leisure activites: exercise Sexually active: Yes Current gender identity: Female /Gnosticism: Sikh Special needs: No Agree to transfusion: Yes Financial difficulty paying for basics: Not Very Hard Physical Exam Const: COMMON NORMALS: no acute distress, patient oriented x3, no limitations and alert GENERAL APPEARANCE: cooperative NUTRITIONAL APPEARANCE: obese ORIENTATION/CONSCIOUSNESS: Yes awake, Yes oriented to person, Yes oriented to place and Yes oriented to time Chest: COMMONS NORMALS: normal inspection of the chest OTHER: TTP sternum; palpation reproduces patient's pain Resp: COMMON NORMALS: normal respiratory effort and clear to auscultation bilaterally AUSCULTATION: clear to auscultation bilaterally Cardio: COMMON NORMALS: regular rate and regular rhythm RATE: regular rate RHYTHM: regular rhythm GI: COMMON NORMALS: Normal to inspection, nondistended, normoactive bowel sounds present, Soft to palpation, non-tender, No hepatosplenomegaly present and no masses PALPATION: Yes Soft to palpation and Yes No hepatosplenomegaly present Neuro: COMMON NORMALS: patient oriented x3 SENSORIUM/ORIENTATION: Yes alert, Yes oriented to person, Yes oriented to place and Yes oriented to time Skin: COMMON NORMALS: no rashes or lesions noted GENERAL SKIN EXAM: no rashes or lesions noted Course Vital Signs: Vital signs: Vital Signs Temperature 97.7 F 10/30/20 20:09 Pulse Rate 89 10/30/20 21:34 Respiratory Rate 15 10/30/20 21:12 Blood Pressure 115/82 10/30/20 21:34 Pulse Oximetry 96 10/30/20 21:34 MDM - Chest Pain MDM Narrative: Medical decision making narrative: Patient has reproducible chest pain on exam. She has been seen here in our emergency department for almost identical symptoms. Her last stress test was 09/2018 and was normal. She has a heart score of 2 due to risk factors (obesity, smoker, hyperlipidemia). She has a negative troponin. EKG is normal. Recommend she contact cardiology on Sunday to schedule a follow-up appointment. Return to ED precautions given. Lab Data: Labs: Lab Results 10/30/20 10/30/20 10/30/20 Range/Units 20:20 20:20 20:20 WBC 9.1 (4.0-10.0) 10^3/ uL RBC 5.16 (4.1-5.3) 10^6/u L Hgb 15.2 (11.5-15.3) g/dL Hct 48.8 H (37.0-47.0) % MCV 94.6 (81-99) fL MCH 29.5 (28.0-34.0) pg MCHC 31.1 (30.0-36.0) g/dL RDW 12.7 (12.1-15.1) % Plt Count 236 (130-400) 10^3/c mm MPV 11.4 H (7.4-10.4) fL Neut % (Auto) 52.1 % Lymph % (Auto) 34.6 % [place] % (Auto) 8.7 % Eos % (Auto) 3.4 % Baso % (Auto) 1.0 % Neut # (Auto) 4.75 (1.8-7.7) 10^3/u L Lymph # (Auto) 3.2 (0.8-4.8) 10^3/u L [place] # (Auto) 0.8 (0.2-0.9) 10^3/u L Eos # (Auto) 0.3 (0.0-0.8) 10^3/u L Baso # (Auto) 0.1 (0.0-0.1) 10^3/u L Nucleated RBC % (a uto) 0 % Nucleated RBCs # 0.0 /100WBC Sodium 140 (136-145) mmol/L Potassium 4.3 (3.5-5.1) mmol/L Chloride 101 (98-107) mmol/L Carbon Dioxide 28 (22-29) mmol/L Anion Gap 15.3 (5-19) BUN 10 (6-20) mg/dL Creatinine 0.9 (0.5-0.9) mg/dL GFR Calculation 69.3 L (90-130) mL/min Glucose 84 (65-115) mg/dL Calculated Osmolal ity 288 (285-295) mOsm/k g Calcium 9.5 (8.5-10.5) mg/dL Total Bilirubin 0.8 (0.15-1.2) mg/dL AST 18 (0-32) U/L ALT 17 (0-33) U/L Alkaline Phosphata se 108 H (35-105) IU/L Troponin T Baselin e 6 (0-10) ng/L Total Protein 7.2 (6.6-8.7) g/dL Albumin 4.6 (3.5-5.2) g/dL Globulin 2.6 (1.3-4.6) g/dL Imaging Data^: CXR: Radiologist's impression: [address] [address] XRay Report Signed Patient: Dannielle Baxter #: [id number] : 1980Acct#:[id number] Age/Sex: 40 / FADM Date: 10/30/20 Loc: ERRoom/Bed: Attending Dr: Ordering Provider/Ordering MD: Citlalli Cerrato Date of Service: 10/30/20 Procedure(s): XR chest 1V portable [id number] Accession Number(s): [id number] Report Number: [id number] PROCEDURE INFORMATION: Exam: XR Chest, 1 View Exam date and time: 10/30/2020 8:18 PM Age: 40 years old Clinical indication: Chest pain TECHNIQUE: Imaging protocol: XR of the chest Views: 1 view. COMPARISON: CR XR chest 1V portable [id number] 07/28/2020 8:46 PM FINDINGS: Lung volumes are low and there are artifacts from patient body habitus, limiting assessment. Otherwise no focal pulmonary consolidation is demonstrated on this single frontal image. No significant obscuration of the lateral costophrenic angles is demonstrated. No significant vascular congestion is demonstrated. Visualized cardiac silhouette size appears mildly enlarged. XR/XR chest 1V portable [id number] IMPRESSION: No definite acute pulmonary process is demonstrated. Visualized cardiac silhouette size appears mildly enlarged. Dictated By:Augustine Davis MD Signed By:Augustine Davis MDSigned Date/Time:10/30/202104 DD/ 03 EKG Data^: EKG 1: EKG interpretation date: 10/30/20 EKG interpretation time: 20:07 Prior EKG tracings: available for review (no changes from 07/28/20) Interpretation: Sinus tachycardia Rate [address] elevation or depression changes noted Discharge Plan Discharge Patient Disposition: Home Clinical Impression: Chest pain Qualifiers: Chest pain type: unspecified Qualified Code(s): R07.9 - Chest pain, unspecified Condition: Stable Prescriptions: No Action albuterol sulfate 90 mcg/actuation HFA aerosol inhaler 2 puff INHALATION Q4H PRN (Reason: Shortness Of Breath) RF: 0 ondansetron HCl 8 mg tablet 8 mg PO Q8H PRN (Reason: NAUSEA/VOMITING) RF: 0 rosuvastatin [Crestor] 5 mg tablet 5 mg PO DAILY Qty: 30 RF: 5 Hold Instructions: Patient No Longer Taking furosemide 20 mg tablet 20 mg PO DAILY Qty: 30 RF: 5 Hold Instructions: Adverse Reaction montelukast 10 mg tablet 10 mg PO DAILY Qty: 30 RF: 5 potassium chloride 10 mEq tablet,ER particles/crystals 10 meq PO DAILY Qty: 30 RF: 5 tizanidine 2 mg tablet 2 mg PO BEDTIME Qty: 30 RF: 5 fluoxetine [Prozac] 20 mg capsule 20 mg PO QAM Qty: 30 RF: 2 fluoxetine 10 mg capsule 10 mg PO DAILY Qty: 30 RF: 2 meclizine 25 mg tablet 25 mg PO TID PRN (Reason: dizziness) 3 Days Qty: 9 RF: 0 Tylenol Extra Strength 500 mg Tablet 1,000 mg PO PRN RF: 0 tamsulosin 0.4 mg capsule 0.4 mg PO DAILY RF: 0 isosorbide dinitrate 30 mg tablet 15 mg PO DAILY RF: 0 ibuprofen 800 mg tablet 800 mg PO Q8H PRN (Reason: pain) Qty: 30 RF: 0 Discharge Orders: Discharge ED (Routine); Ordered 10/30/20 Ordered By: Citlalli Cerrato Referrals: Flakita Kerr, PAN DUMPER-C [Primary Care Provider] - Patient Instructions: Opioid Safety Activity Restrictions/Additional Instructions: [facility] is committed to fighting the nationwide opiate epidemic. We are providing ALL patients with information regarding opiate safety. If you received opiate pain medication during your stay or if you received a prescription for opiate pain medication-please review this handout. If not, you may disregard. Thank you. As discussed please return the emergency department for worsening chest pain, shortness of breath, difficulty breathing, extreme sweating, nausea/vomiting, or any other concerns you may have. Please contact your product support manager on Sunday to schedule a follow-up appointment. Coding Level of Care Code ED Technician Trainee for Aj Fwd Exam Detailed
[2020-10-30 20:33] LABS: Basophils # 0.1 10^3/uL (0.0-0.1); Eosinophils # 0.3 10^3/uL (0.0-0.8); Eosinophils % 3.4 %; Hematocrit 48.8 % (37.0-47.0); Hemoglobin 15.2 g/dL (11.5-15.3); Lymphocytes # 3.2 10^3/uL (0.8-4.8); Lymphocytes % 34.6 %; Mean Corpuscular HGB Conc 31.1 g/dL (30.0-36.0); Mean Corpuscular Hemoglobin 29.5 pg (28.0-34.0); Mean Corpuscular Volume 94.6 fL (81-99); Mean Platelet Volume 11.4 fL (7.4-10.4); Monocytes # 0.8 10^3/uL (0.2-0.9); Monocytes % 8.7 %; Neutrophils # 4.75 10^3/uL (1.8-7.7); Neutrophils % 52.1 %; Nucleated Red Blood Cells % 0 %; Platelet Count 236 10^3/cmm (130-400); Red Blood Count 5.16 10^6/uL (4.1-5.3); Red Cell Distribution Width 12.7 % (12.1-15.1); White Blood Count 9.1 10^3/uL (4.0-10.0)
[2020-10-30 20:49] LABS: Alanine Aminotransferase 17 U/L (0-33); Albumin Level 4.6 g/dL (3.5-5.2); Alkaline Phosphatase 108 IU/L (35-105); Anion Gap 15.3 (5-19); Aspartate Amino Transferase 18 U/L (0-32); Blood Urea Nitrogen 10 mg/dL (6-20); Calcium 9.5 mg/dL (8.5-10.5); Carbon Dioxide 28 mmol/L (22-29); Chloride 101 mmol/L (98-107); Globulin 2.6 g/dL (1.3-4.6); Glomerular Filtration Rate 69.3 mL/min (90-130); Glucose 84 mg/dL (65-115); Osmolality Calculated 288 mOsm/kg (285-295); Potassium 4.3 mmol/L (3.5-5.1); Sodium 140 mmol/L (136-145); Total Bilirubin 0.8 mg/dL (0.15-1.2); Total Protein 7.2 g/dL (6.6-8.7)
[2020-10-30 20:52] LABS: Troponin(5th) Baseline 6 ng/L (0-10)
[2020-10-30 21:12] VITALS: BP 115/82; PULSE 90; RESP 15; O2SAT 96
[2020-10-30 21:34] VITALS: BP 115/82; PULSE 89; O2SAT 96
== END 2020-10-30 21:35 | disposition home or self-care (01) ==
PROVIDERS: Emergency Provider Physician Assistant; PCP Nurse Practitioner
DX: R07.9 Chest pain, unspecified (principal); E78.2 Mixed hyperlipidemia; F17.210 Nicotine dependence, cigarettes, uncomplicated
CPT/HCPCS: 71045; 80053; 84484; 85025; 99283

== ENCOUNTER 2020-11-08 06:00 | Outpatient (RCR) | payer MEDICARE, MEDICAID, SELFPAY ==
[2020-08-12 09:31] VITALS: BP 107/72; BMI 35.9
== END 2020-12-08 23:59 | disposition home or self-care (01) ==
LOC: SPT 06:00
PROVIDERS: PCP Nurse Practitioner; Referring Provider Nurse Practitioner Family; Visit Provider Nurse Practitioner Family
DX: R20.2 Paresthesia of skin (principal); R20.0 Anesthesia of skin; F17.210 Nicotine dependence, cigarettes, uncomplicated; H81.10 Benign paroxysmal vertigo, unspecified ear; R42 Dizziness and giddiness
CPT/HCPCS: 95886; 95908; 99202

== ENCOUNTER 2020-11-24 21:18 | Emergency (ER) | payer MEDICARE, MEDICAID, SELFPAY ==
[2020-08-12 09:31] VITALS: BP 107/72; BMI 35.9
[2020-11-24 21:24] VITALS: BP 128/91; PULSE 86; RESP 14; TEMP 36.7; O2SAT 95; BMI 49.4
--- NOTE | 2020-11-24 21:25 | W.ED.EAR ---
HPI - Ear Problem General: Chief complaint: Ear Stated complaint: ear issues Time Seen by Provider: 11/24/20 21:22 History of Present Illness: HPI Narrative: Patient is a 40-year-old female comes to the ED with left ear issue. Patient says symptoms started a couple days ago. She says her left ear feels congested her full and hearing out of left ear seems more muffled. Denies any drainage kind of ears or any injury to ear. Patient denies any ear pain as well. Patient denies any fever, chills, upper respiratory symptoms, chest pain, shortness of breath, abdominal pain, nausea/vomiting, bladder or bowel symptoms. Associated symptoms: Denies fever(s), headache(s) or neck pain Review of Systems Const: Denies: fever(s), chills or fatigue Eyes: Denies: change in vision or eye discomfort ENMT: Reports: change in hearing (Left ear congestion?denies any pain. Muffled hearing out of left ear.); Denies: throat pain, odynophagia, nasal discharge or nasal congestion Card: Denies: chest pain, palpitations, edema, swelling of feet/ankles, dyspnea on exertion or orthopnea Resp: Denies: dyspnea, productive cough or non-productive cough GI: Denies: abdominal pain, nausea, vomiting, diarrhea, constipation or hematochezia : Denies: flank pain, dysuria or hematuria Musc: Denies: neck pain, back pain or extremity swelling Skin/Breast: Denies: rash or new lesions Neuro: Denies: headache(s), numbness in extremities or weakness in extremities PFSH ED PFSH: Medical History Acid reflux Asthma due to environmental allergies Asthma with acute exacerbation Chronic post-traumatic stress disorder (PTSD) Edema of extremity Hypokalemia 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 Mixed hyperlipidemia Morbid obesity with BMI of 45.0-49.9, adult PTSD (post-traumatic stress disorder) Seasonal allergic rhinitis Sleep difficulties Tobacco use disorder Urinary hesitancy Surgical History History of bilateral knee arthroplasty History of carpal tunnel surgery of right wrist 2020 History of hysterectomy with bilateral oophorectomy History of skin graft On bilateral legs History of umbilical hernia repair Family History Mother Cancer Diabetes Brother Cancer Diabetes Social History Smoking and tobacco status: current every day smoker cigarettes Packs smoked per day: 1 Years cigarettes smoked: 27 Quit status (tobacco): considering quitting Second hand smoke exposure: No Smoking risk assessment/counseling performed?: No Alcohol intake: never Desire information about alcohol rehabilitation?: No Counseling given: No Desire information about substance/drug rehabilitation?: No Counseling given: No Adopted: Yes Caregiver/support person: No Lives independently: Yes Household members: significant other Housing: House Marital status: Single Number of children: 0 Number of grandchildren: 0 Highest education level completed: High School Graduate service: No Current occupational status: disabled Pets and animals: Yes Pets & animals: dog(s) Pets & animal details: jeff and isacc History of recent travel: No Leisure activites: exercise Sexually active: Yes Current gender identity: Female /Uatsdin: Evangelical Special needs: No Agree to transfusion: Yes Financial difficulty paying for basics: Not Very Hard Physical Exam Const: COMMON NORMALS: no acute distress, patient oriented x3 and alert GENERAL APPEARANCE: cooperative HENMT: COMMON NORMALS: normocephalic and TM's normal bilaterally HEAD & SCALP: normocephalic TYMPANIC MEMBRANE: TM's normal bilaterally MOUTH: Normal oral and palatal mucosa present THROAT: posterior oropharynx normal and uvula midline Neck/C-Spine: COMMON NORMALS: supple GENERAL: Yes normal visual inspection Resp: COMMON NORMALS: normal respiratory effort, No retractions, No use of accessory muscles and clear to auscultation bilaterally AUSCULTATION: clear to auscultation bilaterally Cardio: COMMON NORMALS: regular rate, regular rhythm, S1 normal heart sound present, S2 normal heart sound present, No gallops present (Cardio), No clicks present (Cardio), No murmurs present (Cardio) and Peripheral pulses 2+ throughout RATE: regular rate RHYTHM: regular rhythm HEART SOUNDS: S1 normal heart sound present and S2 normal heart sound present PERIPHERAL PULSES: Peripheral pulses 2+ throughout GI: COMMON NORMALS: Normal to inspection, nondistended, normoactive bowel sounds present, Soft to palpation, non-tender and no masses PALPATION: Yes Soft to palpation : COMMON NORMALS: Yes no CVA tenderness BLADDER/KIDNEY EXAM: Yes no CVA tenderness Back/Pelvis: COMMON NORMALS: no CVA tenderness Extremity: COMMON NORMALS: normal to inspection Neuro: COMMON NORMALS: patient oriented x3 and moves all extremities SENSORIUM/ORIENTATION: Yes alert Skin: GENERAL SKIN EXAM: dry skin Course ED course: Nurse was able to irrigate and clean out left ear. I then reexamined left ear with otoscope and TMs were normal. Patient stated that her left ear feels a lot better and she can hear out of it better now. Vital Signs: Vital signs: Vital Signs Temperature 98.1 F 11/24/20 21:24 Pulse Rate 86 11/24/20 21:24 Respiratory Rate 14 11/24/20 21:24 Blood Pressure 128/91 11/24/20 21:24 Pulse Oximetry 95 11/24/20 21:24 MDM - Ear MDM Narrative: Medical decision making narrative: Patient is a 40-year-old female comes to the ED with left ear complaint. She states that she is having trouble hearing out of the left ear. Upon exam patient has a lot of earwax blocking visualization of TM. I had the nurse irrigate and clean out left ear and she was able to remove the wax. I was unable to examine both right and left ears and TMs are normal. Patient said sure symptoms improved after left ear was cleaned out. Patient told to follow-up with PCP in 7 to 10 days. Return to ED precautions given. Patient understood agree with plan. Discharge Plan Discharge Patient Disposition: Home Clinical Impression: Excess wax in ear Qualifiers: Laterality: left Qualified Code(s): H61.22 - Impacted cerumen, left ear Condition: Stable Prescriptions: No Action albuterol sulfate 90 mcg/actuation HFA aerosol inhaler 2 puff INHALATION Q4H PRN (Reason: Shortness Of Breath) RF: 0 ondansetron HCl 8 mg tablet 8 mg PO Q8H PRN (Reason: NAUSEA/VOMITING) RF: 0 rosuvastatin [Crestor] 5 mg tablet 5 mg PO DAILY Qty: 30 RF: 5 Hold Instructions: Patient No Longer Taking furosemide 20 mg tablet 20 mg PO DAILY Qty: 30 RF: 5 Hold Instructions: Adverse Reaction montelukast 10 mg tablet 10 mg PO DAILY Qty: 30 RF: 5 potassium chloride 10 mEq tablet,ER particles/crystals 10 meq PO DAILY Qty: 30 RF: 5 tizanidine 2 mg tablet 2 mg PO BEDTIME Qty: 30 RF: 5 fluoxetine [Prozac] 20 mg capsule 20 mg PO QAM Qty: 30 RF: 2 fluoxetine 10 mg capsule 10 mg PO DAILY Qty: 30 RF: 2 meclizine 25 mg tablet 25 mg PO TID PRN (Reason: dizziness) 3 Days Qty: 9 RF: 0 isosorbide dinitrate 30 mg tablet 15 mg PO DAILY Qty: 45 RF: 1 Tylenol Extra Strength 500 mg Tablet 1,000 mg PO PRN RF: 0 tamsulosin 0.4 mg capsule 0.4 mg PO DAILY RF: 0 ibuprofen 800 mg tablet 800 mg PO Q8H PRN (Reason: pain) Qty: 30 RF: 0 Discharge Orders: Discharge ED (Routine); Ordered 11/24/20 Ordered By: Yrn Walker Referrals: Flakita Kerr, MARKETING DATABASE COORDINATOR-C [Primary Care Provider] - Discharge Diet: Regular Discharge Activity: Resume usual activity Activity Restrictions/Additional Instructions: Follow-up with medical provider as directed in 7-10 days. Continue taking all home medications as prescribed. Return to the ER or your medical provider if condition worsens. Please read and understand discharge instructions. If any questions, please ask. Coding Level of Care Code ED Canoe Inspector for Aj Fwd Exam Comprehensive
[2020-11-24] MEDS: carbamide peroxide Otic 15 mL Btl 5 DROP EAR-LEFT (21:40)
--- NOTE | 2020-11-24 21:53 | PC.NURSE ---
PTS EAR WAS FLUSHED WITH 20MLS OF WARM NORMAL SALINE. PT HAD A BIG CLUMP OF BROWN EAR WAX THAT WAS FLOATED OUT.
== END 2020-11-24 22:04 | disposition home or self-care (01) ==
PROVIDERS: Emergency Provider Physician Assistant; PCP Nurse Practitioner
DX: H61.22 Impacted cerumen, left ear (principal); E78.2 Mixed hyperlipidemia; F17.210 Nicotine dependence, cigarettes, uncomplicated
CPT/HCPCS: 99282

== ENCOUNTER → 2020-11-25 10:47 | Outpatient (BNVA) | payer MEDICARE, MEDICAID, SELFPAY ==
[2020-08-12 09:31] VITALS: BP 107/72; BMI 35.9
== END ==
PROVIDERS: PCP Nurse Practitioner; Visit Provider Nurse Practitioner
DX: R39.11 Hesitancy of micturition (principal); E55.9 Vitamin D deficiency, unspecified
CPT/HCPCS: 81000; 82306

== ENCOUNTER → 2020-12-21 10:40 | Outpatient (BNVA) | payer MEDICARE, MEDICAID, SELFPAY ==
[2020-08-12 09:31] VITALS: BP 107/72; BMI 35.9
== END ==
PROVIDERS: PCP Nurse Practitioner; Visit Provider Nurse Practitioner Family
DX: R07.89 Other chest pain (principal)
CPT/HCPCS: 80053; 82550; 84484; 85025; 85379

== ENCOUNTER → 2020-12-22 14:36 | Outpatient (BNVA) | payer MEDICARE, MEDICAID, SELFPAY ==
[2020-08-12 09:31] VITALS: BP 107/72; BMI 35.9
== END ==
PROVIDERS: PCP Nurse Practitioner; Visit Provider Nurse Practitioner Family
DX: R07.89 Other chest pain (principal)
CPT/HCPCS: 71046

== ENCOUNTER 2020-12-25 17:18 | Emergency (ER) | payer MEDICARE, MEDICAID, SELFPAY ==
[2020-08-12 09:31] VITALS: BP 107/72; BMI 35.9
[2020-12-25 17:25] VITALS: BP 114/76; PULSE 91; RESP 18; TEMP 36.8; O2SAT 95; BMI 60.5
--- NOTE | 2020-12-25 17:35 | XRR_ITS ---
PROCEDURE INFORMATION: Exam: XR Chest Exam date and time: 12/25/2020 5:46 PM Age: 40 years old Clinical indication: Dyspnea; Additional info: Dyspnea productive cough TECHNIQUE: Imaging protocol: XR of the chest. Views: 1 view. COMPARISON: CR XR chest 2V* [id number] 12/22/2020 2:36 PM FINDINGS: Lungs: Unremarkable. No consolidation. Pleural spaces: Unremarkable. No pleural effusion. No pneumothorax. Heart/Mediastinum: Unremarkable. No cardiomegaly. Bones/joints: Unremarkable. XR/XR chest 1V portable [id number] IMPRESSION: No acute findings.
--- NOTE | 2020-12-25 17:40 | ECG_ITS ---
[facility] Test Date: 2020-12-25 Pat Name: Dannielle Baxter Department: Room: Gender: Female Director Prison: : [id number] Requested By: Reymundo Cool Order Number: [id number] Mejia MD: Alberta Carson M.D. Measurements Intervals [place] Rate: 91 P: 49 [place]: 148 QRS: 21 QRSD: 84 T: 11 QT: 261 QTc: 322 Interpretive Statements SINUS RHYTHM NONSPECIFIC T-WAVE ABNORMALITY Compared to ECG 07/28/2020 20:40:05 No significant changes Electronically Signed On 12-26-2020 10:29:57 CDT by Alberta Carson M.D. [email or web address]
[2020-12-25 17:48] VITALS: PULSE 89; RESP 18; O2SAT 97
[2020-12-25 17:55] VITALS: PULSE 91
[2020-12-25 18:38] LABS: Basophils # 0.1 10^3/uL (0.0-0.1); Basophils % 0.7 %; Eosinophils # 0.3 10^3/uL (0.0-0.8); Eosinophils % 4.4 %; Hematocrit 48.3 % (37.0-47.0); Lymphocytes # 2.1 10^3/uL (0.8-4.8); Mean Corpuscular HGB Conc 31.1 g/dL (30.0-36.0); Mean Corpuscular Hemoglobin 29.5 pg (28.0-34.0); Mean Corpuscular Volume 95.1 fL (81-99); Mean Platelet Volume 11.4 fL (7.4-10.4); Monocytes # 0.7 10^3/uL (0.2-0.9); Monocytes % 9.3 %; Neutrophils # 4.33 10^3/uL (1.8-7.7); Neutrophils % 57.5 %; Nucleated Red Blood Cells % 0 %; Platelet Count 213 10^3/cmm (130-400); Red Blood Count 5.08 10^6/uL (4.1-5.3); Red Cell Distribution Width 13.1 % (12.1-15.1); White Blood Count 7.5 10^3/uL (4.0-10.0)
[2020-12-25 18:54] LABS: Influenza A by IFA Negative (Negative); Influenza B by IFA Negative (Negative)
[2020-12-25 18:57] LABS: D Dimer <= 0.27 ug/mIFEU (0-0.59)
[2020-12-25 18:59] LABS: Lactic Sepsis W/Reflex 1.9 mmol/L (0.5-2.2)
[2020-12-25 19:00] LABS: Alanine Aminotransferase 13 U/L (0-33); Albumin Level 4.3 g/dL (3.5-5.2); Alkaline Phosphatase 90 IU/L (35-105); Aspartate Amino Transferase 13 U/L (0-32); Blood Urea Nitrogen 12 mg/dL (6-20); Calcium 9.1 mg/dL (8.5-10.5); Carbon Dioxide 28 mmol/L (22-29); Chloride 104 mmol/L (98-107); Globulin 2.1 g/dL (1.3-4.6); Glomerular Filtration Rate 79.4 mL/min (90-130); Glucose 84 mg/dL (65-115); Osmolality Calculated 293 mOsm/kg (285-295); Sodium 142 mmol/L (136-145); Total Bilirubin 0.5 mg/dL (0.15-1.2); Total Protein 6.4 g/dL (6.6-8.7)
[2020-12-25 19:02] LABS: Troponin T (5th) Once 6 ng/L (0-10)
[2020-12-25 19:26] VITALS: BP 124/80; PULSE 84; RESP 16; O2SAT 97
--- NOTE | 2020-12-25 19:50 | ED_ITS ---
HPI - SOB/Dyspnea General: Chief Complaint: Shortness of Breath/Dyspnea Stated Complaint: COUGH; LETHARGY Time Seen by Provider: 12/25/20 17:24 History of Present Illness: HPI Narrative: The patient is a 40-year-old female being treated for pneumonia with unknown antibiotic comes to the ER from home complaining of shortness of breath, cough. She has a history of asthma and says her wheezing has been worse and causing her shortness of breath. Denies chest pain. MD elicited complaint: shortness of breath, cough and asthma attack Pertinent past history: asthma Context: recent illness Severity: mild Exacerbating factors: exertion Relieving factors: nothing Known history of: asthma Associated symptoms: Reports cough; Deny chest pain, dizziness, extremity pain, fever(s), nausea, polyuria or vomiting Review of Systems General: Reports: 10 or more systems reviewed and unremarkable except in HPI and below Const: Denies: fever(s) Eyes: Denies: change in vision, blurry vision or eye redness ENMT: Denies: throat pain, swelling of lips/tongue, ear or mastoid pain or nasal congestion Card: Denies: chest pain Resp: Reports: dyspnea, non-productive cough and wheezing; Denies: productive cough GI: Denies: nausea or vomiting : Denies: flank pain, difficulty voiding, urinary frequency or urinary urgency Musc: Denies: neck pain, back pain, extremity pain, joint pain, joint redness, limited range of motion or muscle weakness Skin/Breast: Denies: rash, pruritus, erythema, skin pain or skin tenderness Neuro: Denies: headache(s), numbness in extremities, weakness in extremities, sensory changes, difficulty walking, dizziness, confusion or Slurred speech present Psych: Denies: anxiety or depression Endo: Denies: polyuria All/Imm: Denies: urticaria, throat swelling or tongue swelling PFSH ED PFSH: Medical History Acid reflux Asthma due to environmental allergies Asthma with acute exacerbation Chronic post-traumatic stress disorder (PTSD) Edema of extremity Hypokalemia 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 Mixed hyperlipidemia Morbid obesity with BMI of 45.0-49.9, adult KASEY on CPAP PTSD (post-traumatic stress disorder) Seasonal allergic rhinitis Sleep difficulties Tobacco use disorder Urinary hesitancy Surgical History History of bilateral knee arthroplasty History of carpal tunnel surgery of right wrist 2020 History of hysterectomy with bilateral oophorectomy History of skin graft On bilateral legs History of umbilical hernia repair Family History Mother Cancer Diabetes Brother Cancer Diabetes Social History Smoking and tobacco status: current every day smoker cigarettes Packs smoked per day: 1 Years cigarettes smoked: 27 Quit status (tobacco): considering quitting Second hand smoke exposure: No Smoking risk assessment/counseling performed?: No Alcohol intake: never Desire information about alcohol rehabilitation?: No Counseling given: No Desire information about substance/drug rehabilitation?: No Counseling given: No Adopted: Yes Caregiver/support person: No Lives independently: Yes Household members: significant other Housing: House Marital status: Single Number of children: 0 Number of grandchildren: 0 Highest education level completed: High School Graduate service: No Current occupational status: disabled Pets and animals: Yes Pets & animals: dog(s) Pets & animal details: jeff and isacc History of recent travel: No Leisure activites: exercise Sexually active: Yes Current gender identity: Female /Orthodoxy: Latter Day Special needs: No Agree to transfusion: Yes Financial difficulty paying for basics: Not Very Hard Physical Exam Const: COMMON NORMALS: no acute distress, average body habitus, patient oriented x3, no limitations, healthy appearing, alert and well nourished GENERAL APPEARANCE: cooperative, comfortable, well kempt and well developed ORIENTATION/CONSCIOUSNESS: Yes awake, Yes oriented to person, Yes oriented to place and Yes oriented to time HENMT: COMMON NORMALS: normocephalic, external ears normal and Normal external nose present HEAD & SCALP: normal to inspection and normocephalic NOSE: Normal external nose present EXTERNAL EAR: Yes external ears normal MOUTH: Normal oral and palatal mucosa present THROAT: posterior oropharynx normal Eye: COMMON NORMALS: Equal, round and reactive pupils present and EOMs intact bilaterally GENERAL EYE: appearance normal, both eyes and all related structures PUPIL: Yes Equal, round and reactive pupils present Neck/C-Spine: COMMON NORMALS: full ROM, no lymphadenopathy, no meningeal signs and no JVD GENERAL: Yes normal visual inspection Lymph: LYMPHATIC: no lymphadenopathy noted Chest: COMMONS NORMALS: normal inspection of the chest and normal palpation of entire chest wall Resp: COMMON NORMALS: normal respiratory effort, No retractions, No use of accessory muscles and percussion normal EFFORT & INSPECTION: Yes able to speak in complete sentences AUSCULTATION: wheezes PERCUSSION: percussion normal Cardio: COMMON NORMALS: no JVD, regular rate, regular rhythm, S1 normal heart sound present, S2 normal heart sound present and Peripheral pulses 2+ throughout RATE: regular rate RHYTHM: regular rhythm HEART SOUNDS: S1 normal heart sound present and S2 normal heart sound present PERIPHERAL PULSES: Peripheral pulses 2+ throughout GI: COMMON NORMALS: Normal to inspection, nondistended, normoactive bowel sounds present, Soft to palpation, non-tender and no masses INSPECTION: Yes normal to inspection PALPATION: Yes Soft to palpation : COMMON NORMALS: Yes no CVA tenderness BLADDER/KIDNEY EXAM: Yes no CVA tenderness Back/Pelvis: COMMON NORMALS: no CVA tenderness, thoracic and lumbar spine normal to inspection, no thoracic nor lumbar tenderness and thoraco-lumbar ROM normal Extremity: COMMON NORMALS: normal to inspection, full ROM, capillary refill normal, no joint enlargement and no pedal edema GENERAL: Yes normal exam except as noted Neuro: COMMON NORMALS: patient oriented x3, CN's II-XII intact bilaterally, moves all extremities, no focal motor deficits, no sensory deficits noted and gait normal SENSORIUM/ORIENTATION: Yes alert, Yes oriented to person, Yes oriented to place and Yes oriented to time MENINGEAL SIGNS: Yes no meningeal signs Psych: COMMON NORMALS: mental status grossly normal, Normal thought process present, cooperative, normal affect and speech normal APPEARANCE: Yes well kempt ATTITUDE: Yes calm SPEECH: Yes normal speech THOUGHT PROCESS: Normal thought process present Skin: COMMON NORMALS: no rashes or lesions noted GENERAL SKIN EXAM: no rashes or lesions noted Course Vital Signs: Vital signs: Vital Signs Temperature 98.3 F 12/25/20 17:25 Pulse Rate 74 12/25/20 20:22 Respiratory Rate 14 12/25/20 20:22 Blood Pressure 107/80 12/25/20 20:22 Pulse Oximetry 96 12/25/20 20:22 MDM - SOB/Dyspnea MDM Narrative: Medical decision making narrative: The patient came to the ER complaining of shortness of breath and she was wheezing mildly on exam. She is being treated for pneumonia with unknown antibiotic. She was given an albuterol inhaler here in the ED with resolution of her shortness of breath. Likely the pneumonia she is suffering from is causing her reactive airway disease exacerbating her asthma. Covid was negative as well as influenza. Chest x-ray looks like it is at her baseline. She is stable for discharge with azithromycin, albuterol, Medrol Dosepak. Lab Data: Labs: Lab Results 12/25/20 12/25/20 12/25/20 Range/Units 18:10 18:10 18:10 WBC 7.5 (4.0-10.0) 10^3/ uL RBC 5.08 (4.1-5.3) 10^6/u L Hgb 15.0 (11.5-15.3) g/dL Hct 48.3 H (37.0-47.0) % MCV 95.1 (81-99) fL MCH 29.5 (28.0-34.0) pg MCHC 31.1 (30.0-36.0) g/dL RDW 13.1 (12.1-15.1) % Plt Count 213 (130-400) 10^3/c mm MPV 11.4 H (7.4-10.4) fL Neut % (Auto) 57.5 % Lymph % (Auto) 28.0 % Merrick % (Auto) 9.3 % Eos % (Auto) 4.4 % Baso % (Auto) 0.7 % Neut # (Auto) 4.33 (1.8-7.7) 10^3/u L Lymph # (Auto) 2.1 (0.8-4.8) 10^3/u L Merrick # (Auto) 0.7 (0.2-0.9) 10^3/u L Eos # (Auto) 0.3 (0.0-0.8) 10^3/u L Baso # (Auto) 0.1 (0.0-0.1) 10^3/u L Nucleated RBC % (a uto) 0 % Nucleated RBCs # 0.0 /100WBC D-Dimer (0-0.59) ug/mIFE U Sodium 142 (136-145) mmol/L Potassium 4.0 (3.5-5.1) mmol/L Chloride 104 (98-107) mmol/L Carbon Dioxide 28 (22-29) mmol/L Anion Gap 14.0 (5-19) BUN 12 (6-20) mg/dL Creatinine 0.8 (0.5-0.9) mg/dL GFR Calculation 79.4 L (90-130) mL/min Glucose 84 (65-115) mg/dL Calculated Osmolal ity 293 (285-295) mOsm/k g Lactic Acid 1.9 (0.5-2.2) mmol/L Calcium 9.1 (8.5-10.5) mg/dL Total Bilirubin 0.5 (0.15-1.2) mg/dL AST 13 (0-32) U/L ALT 13 (0-33) U/L Alkaline Phosphata se 90 (35-105) IU/L Troponin T Gen 5 n g/L (0-10) ng/L Total Protein 6.4 L (6.6-8.7) g/dL Albumin 4.3 (3.5-5.2) g/dL Globulin 2.1 (1.3-4.6) g/dL Influenza Type A A g (Negative) Influenza Type B A g (Negative) SARS-CoV-2 Ag (Rap id) (Negative) 12/25/20 12/25/20 12/25/20 Range/Units 18:10 18:10 18:17 WBC (4.0-10.0) 10^3/ uL RBC (4.1-5.3) 10^6/u L Hgb (11.5-15.3) g/dL Hct (37.0-47.0) % MCV (81-99) fL MCH (28.0-34.0) pg MCHC (30.0-36.0) g/dL RDW (12.1-15.1) % Plt Count (130-400) 10^3/c mm MPV (7.4-10.4) fL Neut % (Auto) % Lymph % (Auto) % Merrick % (Auto) % Eos % (Auto) % Baso % (Auto) % Neut # (Auto) (1.8-7.7) 10^3/u L Lymph # (Auto) (0.8-4.8) 10^3/u L Merrick # (Auto) (0.2-0.9) 10^3/u L Eos # (Auto) (0.0-0.8) 10^3/u L Baso # (Auto) (0.0-0.1) 10^3/u L Nucleated RBC % (a uto) % Nucleated RBCs # /100WBC D-Dimer <= 0.27 (0-0.59) ug/mIFE U Sodium (136-145) mmol/L Potassium (3.5-5.1) mmol/L Chloride (98-107) mmol/L Carbon Dioxide (22-29) mmol/L Anion Gap (5-19) BUN (6-20) mg/dL Creatinine (0.5-0.9) mg/dL GFR Calculation (90-130) mL/min Glucose (65-115) mg/dL Calculated Osmolal ity (285-295) mOsm/k g Lactic Acid (0.5-2.2) mmol/L Calcium (8.5-10.5) mg/dL Total Bilirubin (0.15-1.2) mg/dL AST (0-32) U/L ALT (0-33) U/L Alkaline Phosphata se (35-105) IU/L Troponin T Gen 5 n g/L 6 (0-10) ng/L Total Protein (6.6-8.7) g/dL Albumin (3.5-5.2) g/dL Globulin (1.3-4.6) g/dL Influenza Type A A g Negative (Negative) Influenza Type B A g Negative (Negative) SARS-CoV-2 Ag (Rap id) (Negative) 12/25/20 Range/Units 19:30 WBC (4.0-10.0) 10^3/ uL RBC (4.1-5.3) 10^6/u L Hgb (11.5-15.3) g/dL Hct (37.0-47.0) % MCV (81-99) fL MCH (28.0-34.0) pg MCHC (30.0-36.0) g/dL RDW (12.1-15.1) % Plt Count (130-400) 10^3/c mm MPV (7.4-10.4) fL Neut % (Auto) % Lymph % (Auto) % Merrick % (Auto) % Eos % (Auto) % Baso % (Auto) % Neut # (Auto) (1.8-7.7) 10^3/u L Lymph # (Auto) (0.8-4.8) 10^3/u L Merrick # (Auto) (0.2-0.9) 10^3/u L Eos # (Auto) (0.0-0.8) 10^3/u L Baso # (Auto) (0.0-0.1) 10^3/u L Nucleated RBC % (a uto) % Nucleated RBCs # /100WBC D-Dimer (0-0.59) ug/mIFE U Sodium (136-145) mmol/L Potassium (3.5-5.1) mmol/L Chloride (98-107) mmol/L Carbon Dioxide (22-29) mmol/L Anion Gap (5-19) BUN (6-20) mg/dL Creatinine (0.5-0.9) mg/dL GFR Calculation (90-130) mL/min Glucose (65-115) mg/dL Calculated Osmolal ity (285-295) mOsm/k g Lactic Acid (0.5-2.2) mmol/L Calcium (8.5-10.5) mg/dL Total Bilirubin (0.15-1.2) mg/dL AST (0-32) U/L ALT (0-33) U/L Alkaline Phosphata se (35-105) IU/L Troponin T Gen 5 n g/L (0-10) ng/L Total Protein (6.6-8.7) g/dL Albumin (3.5-5.2) g/dL Globulin (1.3-4.6) g/dL Influenza Type A A g (Negative) Influenza Type B A g (Negative) SARS-CoV-2 Ag (Rap id) Negative (Negative) Discharge Plan Discharge Patient Disposition: Home Clinical Impression: Asthma with exacerbation Condition: Stable Prescriptions: New azithromycin 250 mg tablet 250 mg PO DAILY 4 Days Qty: 4 RF: 0 Medrol (Jeronimo) 4 mg tablets,dose pack See Rx Instructions .ROUTE .COMPLEX Qty: 21 RF: 0 albuterol sulfate 90 mcg/actuation HFA aerosol inhaler 2 inh inhalation Q6H PRN (Reason: shortness of breath or wheezing) 30 Days RF: 0 No Action albuterol sulfate 90 mcg/actuation HFA aerosol inhaler 2 puff INHALATION Q4H PRN (Reason: Shortness Of Breath) RF: 0 ondansetron HCl 8 mg tablet 8 mg PO Q8H PRN (Reason: NAUSEA/VOMITING) RF: 0 rosuvastatin [Crestor] 5 mg tablet 5 mg PO DAILY Qty: 30 RF: 5 Hold Instructions: Patient No Longer Taking furosemide 20 mg tablet 20 mg PO DAILY Qty: 30 RF: 5 Hold Instructions: Adverse Reaction montelukast 10 mg tablet 10 mg PO DAILY Qty: 30 RF: 5 potassium chloride 10 mEq tablet,ER particles/crystals 10 meq PO DAILY Qty: 30 RF: 5 tizanidine 2 mg tablet 2 mg PO BEDTIME Qty: 30 RF: 5 diclofenac sodium [Voltaren] 1 % gel 2 g topical DAILY Qty: 100 RF: 0 [id number]-XO 3.5-10,000-1 mg/mL-unit/mL-% drops,suspension 3 drp otic (ear) .2 times day 7 Days Qty: 10 RF: 0 fluoxetine [Prozac] 20 mg capsule 20 mg PO QAM Qty: 30 RF: 2 fluoxetine 10 mg capsule 10 mg PO DAILY Qty: 30 RF: 2 meclizine 25 mg tablet 25 mg PO TID PRN (Reason: dizziness) 3 Days Qty: 9 RF: 0 isosorbide dinitrate 30 mg tablet 15 mg PO DAILY Qty: 45 RF: 1 ergocalciferol (vitamin D2) 1,250 mcg (50,000 unit) capsule 1,250 mcg PO .weekly Qty: 4 RF: 2 levofloxacin 500 mg tablet 500 mg PO DAILY 5 Days Qty: 5 RF: 0 Tylenol Extra Strength 500 mg Tablet 1,000 mg PO PRN RF: 0 tamsulosin 0.4 mg capsule 0.4 mg PO DAILY RF: 0 Discharge Orders: Discharge ED (Routine); Ordered 12/25/20 Ordered By: Reymundo Cool Referrals: Flakita Kerr, SENIOR VICE PRESIDENT AND CHIEF INFORMATION OFFICER-C [Primary Care Provider] - Discharge Diet: Advance as tolerated Discharge Activity: Resume usual activity Patient Instructions: Asthma Exacerbation - Adult, Bacterial Pneumonia (ED), Opioid Safety Activity Restrictions/Additional Instructions: You are likely having an asthma attack related to a chest infection. You have been taking antibiotics for pneumonia and you are likely still clearing that up. Please start taking the azithromycin, steroids, and use the albuterol inhaler to help with your shortness of breath. Return to the ER at anytime with worsening symptoms. Follow-up with your primary care physician in a couple days to monitor improvement of your symptoms. Coding Level of Care Code ED Case Investigator for Aj Fwd Exam Comprehensive
[2020-12-25 20:22] VITALS: BP 107/80; PULSE 74; RESP 14; O2SAT 96
[2020-12-25 20:32] LABS: SARS Covid-2 Antigen Negative (Negative)
[2020-12-25] MEDS: dexamethasone 10 mg/mL INJ IVP (21:36)
[2020-12-25] MEDS: azithromycin 250 mg Tablet 500 MG PO (21:36)
[2020-12-25 21:46] VITALS: BP 129/89; PULSE 18; RESP 88; O2SAT 95
== END 2020-12-25 21:48 | disposition home or self-care (01) ==
PROVIDERS: Emergency Provider Family Medicine; PCP Nurse Practitioner
DX: J45.901 Unspecified asthma with (acute) exacerbation (principal); E78.2 Mixed hyperlipidemia; F17.210 Nicotine dependence, cigarettes, uncomplicated
CPT/HCPCS: 71045; 80053; 83605; 84484; 85025; 85378; 87426; 87804; 93005; 94640; 96374; 99284; J1100; J7611; Q0144

== ENCOUNTER 2020-12-31 21:58 | Emergency (ER) | payer MEDICARE, MEDICAID, SELFPAY ==
[2020-12-30 09:37] VITALS: BP 107/72; BMI 35.9
[2020-12-31 22:04] VITALS: BP 137/84; PULSE 93; RESP 18; TEMP 36.3; O2SAT 96; BMI 46.4
--- NOTE | 2020-12-31 22:33 | XRR_ITS ---
PROCEDURE INFORMATION: Exam: XR Chest Exam date and time: 12/31/2020 10:33 PM Age: 40 years old Clinical indication: Cough; Additional info: Pneumonia TECHNIQUE: Imaging protocol: XR of the chest. Views: 1 view. COMPARISON: CR (CHEST, ) 12/25/2020 5:48 PM FINDINGS: Mild ill-defined opacification at right lung base is most compatible with atelectasis/infiltrate. No focal left pulmonary consolidation is demonstrated on this single frontal image. No significant obscuration of the lateral costophrenic angles is demonstrated. No significant vascular congestion is demonstrated. Visualized cardiac silhouette size appears within normal limits. XR/XR chest 1V portable [id number] IMPRESSION: Mild ill-defined opacification at right lung base is most compatible with atelectasis/infiltrate.
--- NOTE | 2021-01-01 01:05 | W.ED.URI ---
HPI - URI/Sore Throat General: Chief Complaint: Nausea/Vomiting/Diarrhea Stated Complaint: VOMITING LAST NIGHT AND TODAY Time Seen by Provider: 01/01/21 00:50 Source: patient Mode of arrival: ambulatory Limitations: no limitations History of Present Illness: HPI Narrative: Patient is a 40-year-old female who presents to ED today stating she has had 3 episodes of post-tussive vomiting. She states she has sinus pain, congestion, and drainage to the back of her throat. She states the drainage causes her to cough and then when she coughs she will then vomit. She has not noticed any blood in her vomit. Patient states she was seen and diagnosed with pneumonia and placed on Levaquin. I don't have any record of this visit from here or an [facility] clinic. She was seen in the ED on 12/25 and was prescribed Azithromycin. Patient tells me she has no SOB, chest pain, difficulty breathing, or fevers. MD elicited complaint: nasal congestion Onset (ago): day(s) Consistency: intermittent Severity: mild Description of mucous: clear Able to tolerate fluids by mouth: Yes Relieving factors: nothing Associated symptoms: Reports nasal congestion; Deny abdominal pain, chills, chest pain, diarrhea, epistaxis, ear or mastoid pain, fever(s), headache(s), nausea, sinus pain or vomiting Treatments prior to arrival: antibiotics (levaquin-one dose left ) Review of Systems Const: Denies: fever(s), chills, body aches, fatigue or malaise Eyes: Denies: change in vision ENMT: Reports: nasal discharge, nasal congestion and post nasal drip; Denies: throat pain, odynophagia, mouth pain, swelling of lips/tongue, dental pain, ear or mastoid pain, ear discharge, epistaxis or sinus pain Card: Denies: chest pain Resp: Denies: dyspnea, productive cough, non-productive cough, change in phlegm color, hemoptysis or chest congestion GI: Denies: abdominal pain, nausea, vomiting or diarrhea Musc: Denies: neck pain Skin/Breast: Denies: rash Neuro: Denies: headache(s) PFS ED PFSH: Medical History Acid reflux Asthma due to environmental allergies Asthma with acute exacerbation Chronic post-traumatic stress disorder (PTSD) Edema of extremity Hypokalemia 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 Mixed hyperlipidemia Morbid obesity with BMI of 45.0-49.9, adult KASEY on CPAP PTSD (post-traumatic stress disorder) Seasonal allergic rhinitis Sleep difficulties Tobacco use disorder Urinary hesitancy Surgical History History of bilateral knee arthroplasty History of carpal tunnel surgery of right wrist 2020 History of hysterectomy with bilateral oophorectomy History of skin graft On bilateral legs History of umbilical hernia repair Family History Mother Cancer Diabetes Brother Cancer Diabetes Social History Smoking and tobacco status: current every day smoker cigarettes Packs smoked per day: 1 Years cigarettes smoked: 27 Quit status (tobacco): considering quitting Second hand smoke exposure: No Smoking risk assessment/counseling performed?: No Alcohol intake: never Desire information about alcohol rehabilitation?: No Counseling given: No Desire information about substance/drug rehabilitation?: No Counseling given: No Adopted: Yes Caregiver/support person: No Lives independently: Yes Household members: significant other Housing: House Marital status: Single Number of children: 0 Number of grandchildren: 0 Highest education level completed: High School Graduate service: No Current occupational status: disabled Pets and animals: Yes Pets & animals: dog(s) Pets & animal details: jeff and arnulfosukhjinder History of recent travel: No Leisure activites: exercise Sexually active: Yes Current gender identity: Female /Taoist: Scientology Special needs: No Agree to transfusion: Yes Financial difficulty paying for basics: Not Very Hard Physical Exam Const: COMMON NORMALS: no acute distress, patient oriented x3, no limitations and alert GENERAL APPEARANCE: cooperative HENMT: COMMON NORMALS: normocephalic, atraumatic, hearing grossly normal bilaterally, external ears normal, EAC's normal, TM's normal bilaterally, Normal external nose present, moist oral mucous membranes and oropharynx normal HEAD & SCALP: normal to inspection, normocephalic and atraumatic FACE & SINUS: normal facial exam and sinus tenderness (mild maxillary) NOSE: Normal external nose present and Other nasal findings present (nasal congestion) EXTERNAL EAR: Yes external ears normal EXTERNAL AUDITORY CANAL: EAC's normal TYMPANIC MEMBRANE: TM's normal bilaterally THROAT: posterior oropharynx normal, tonsils normal and uvula midline Eye: GENERAL EYE: appearance normal, both eyes and all related structures Neck/C-Spine: COMMON NORMALS: no lymphadenopathy Resp: COMMON NORMALS: normal respiratory effort and clear to auscultation bilaterally AUSCULTATION: clear to auscultation bilaterally Cardio: COMMON NORMALS: regular rate and regular rhythm RATE: regular rate RHYTHM: regular rhythm Neuro: COMMON NORMALS: patient oriented x3 SENSORIUM/ORIENTATION: Yes alert Course Vital Signs: Vital signs: Vital Signs Temperature 97.7 F 01/01/21 01:28 Pulse Rate 84 01/01/21 01:28 Respiratory Rate 17 01/01/21 01:28 Blood Pressure 140/100 01/01/21 01:28 Pulse Oximetry 94 01/01/21 01:28 MDM - URI/Sore Throat MDM Narrative: Medical decision making narrative: Looks like patient was prescribed azithromycin 12/25. She has a prescription for Levaquin as well in which she has one day left. It does not sound like patient has pneumonia. Her CXR does not show pneumonia. Discussed possible allergies versus URI. There is no need for emergent labs based on 3 episodes of non-bloody emesis. Discussed mwdk-jwt-yhnqhyw medication she can use for postnasal drainage. Imaging Data^: CXR: My impression: NAD/no change from previous Discharge Plan Discharge Patient Disposition: Home Clinical Impression: Post-nasal drainage Condition: Stable Prescriptions: No Action albuterol sulfate 90 mcg/actuation HFA aerosol inhaler 2 puff INHALATION Q4H PRN (Reason: Shortness Of Breath) RF: 0 ondansetron HCl 8 mg tablet 8 mg PO Q8H PRN (Reason: NAUSEA/VOMITING) RF: 0 rosuvastatin [Crestor] 5 mg tablet 5 mg PO DAILY Qty: 30 RF: 5 Hold Instructions: Patient No Longer Taking furosemide 20 mg tablet 20 mg PO DAILY Qty: 30 RF: 5 Hold Instructions: Adverse Reaction montelukast 10 mg tablet 10 mg PO DAILY Qty: 30 RF: 5 potassium chloride 10 mEq tablet,ER particles/crystals 10 meq PO DAILY Qty: 30 RF: 5 tizanidine 2 mg tablet 2 mg PO BEDTIME Qty: 30 RF: 5 diclofenac sodium [Voltaren] 1 % gel 2 g topical DAILY Qty: 100 RF: 0 fyvbvrla-nzwjwvmdx-LV 3.5-10,000-1 mg/mL-unit/mL-% drops,suspension 3 drp otic (ear) .2 times day 7 Days Qty: 10 RF: 0 fluoxetine [Prozac] 20 mg capsule 20 mg PO QAM Qty: 30 RF: 2 fluoxetine 10 mg capsule 10 mg PO DAILY Qty: 30 RF: 2 meclizine 25 mg tablet 25 mg PO TID PRN (Reason: dizziness) 3 Days Qty: 9 RF: 0 isosorbide dinitrate 30 mg tablet 15 mg PO DAILY Qty: 45 RF: 1 ergocalciferol (vitamin D2) 1,250 mcg (50,000 unit) capsule 1,250 mcg PO .weekly Qty: 4 RF: 2 levofloxacin 500 mg tablet 500 mg PO DAILY 5 Days Qty: 5 RF: 0 Tylenol Extra Strength 500 mg Tablet 1,000 mg PO PRN RF: 0 tamsulosin 0.4 mg capsule 0.4 mg PO DAILY RF: 0 Medrol (Jeronimo) 4 mg tablets,dose pack See Rx Instructions .ROUTE .COMPLEX Qty: 21 RF: 0 albuterol sulfate 90 mcg/actuation HFA aerosol inhaler 2 inh inhalation Q6H PRN (Reason: shortness of breath or wheezing) 30 Days RF: 0 Discharge Orders: Discharge ED (Routine); Ordered 01/01/21 Ordered By: Citlalli Cerrato Referrals: Flakita Kerr FNP-C [Primary Care Provider] - Coding Level of Care Code ED Research Executive for Chg Fwd Exam Detailed
[2021-01-01 01:28] VITALS: BP 140/100; PULSE 84; RESP 17; TEMP 36.5; O2SAT 94
== END 2021-01-01 01:31 | disposition home or self-care (01) ==
PROVIDERS: Emergency Provider Physician Assistant; PCP Nurse Practitioner
DX: R09.82 Postnasal drip (principal); E78.2 Mixed hyperlipidemia; F17.210 Nicotine dependence, cigarettes, uncomplicated
CPT/HCPCS: 71045; 99283

== ENCOUNTER → 2021-01-05 13:22 | Outpatient (BNVA) | payer MEDICARE, MEDICAID, SELFPAY ==
[2020-12-30 09:37] VITALS: BP 107/72; BMI 35.9
== END ==
PROVIDERS: PCP Nurse Practitioner; Visit Provider Nurse Practitioner
DX: R07.89 Other chest pain (principal)
CPT/HCPCS: 71046

== ENCOUNTER 2021-01-06 17:10 | Emergency (ER) | payer MEDICARE, MEDICAID, SELFPAY ==
[2020-12-30 09:37] VITALS: BP 107/72; BMI 35.9
[2021-01-06 17:16] VITALS: BP 129/78; PULSE 69; RESP 18; O2SAT 99; BMI 42.4
--- NOTE | 2021-01-06 17:38 | XRR_ITS ---
PROCEDURE INFORMATION: Exam: XR Chest Exam date and time: 01/06/2021 5:50 PM Age: 40 years old Clinical indication: Shortness of breath; Additional info: SOB TECHNIQUE: Imaging protocol: XR of the chest. Views: 1 view. COMPARISON: CR XR chest 2V* [id number] 01/05/2021 1:23 PM FINDINGS: Lungs: Unremarkable. No consolidation. Pleural spaces: Unremarkable. No pleural effusion. No pneumothorax. Heart/Mediastinum: Unremarkable. No cardiomegaly. Bones/joints: Unremarkable. XR/XR chest 1V portable [id number] IMPRESSION: No acute findings.
--- NOTE | 2021-01-06 17:38 | ECG_ITS ---
[facility] Test Date: 2021-01-06 Pat Name: Dannielle Baxter Department: Room: Gender: Female Speech Therapist: : 1980 Requested By: Natalia Way Order Number: [id number] Mejia MD: Alberta Carson M.D. Measurements Intervals [place] Rate: 65 P: 77 NC: 146 QRS: 61 QRSD: 89 T: 48 QT: 377 QTc: 393 Interpretive Statements SINUS RHYTHM Compared to ECG 12/25/2020 17:49:39 T-wave abnormality no longer present Electronically Signed On 01-07-2021 7:16:40 CDT by Alberta Carson M.D. [id number]
[2021-01-06 17:56] VITALS: BP 126/72; PULSE 73; RESP 18; O2SAT 97
--- NOTE | 2021-01-06 18:17 | ED_ITS ---
HPI - SOB/Dyspnea General: Chief Complaint: Shortness of Breath/Dyspnea Stated Complaint: BREATHING PROBLEMS Time Seen by Provider: 01/06/21 18:06 Source: patient Mode of arrival: EMS Limitations: no limitations History of Present Illness: HPI Narrative: 40-year-old female with history of asthma brought in by EMS for wheezing, continued shortness of breath and low O2 sats. Her wheezing and cough initially became worse about 2 weeks ago, since then she has had 2 visits to the ER, has been treated with 2 rounds of antibiotics as well as steroids, but her symptoms persist. She has not had any breathing treatments today. She lost her home nebulizer and has not been able to use it for several weeks. Normally she does not use any oxygen at home, her O2 sats were in the 80s when EMS arrived, required 4 L nasal cannula to come up to the mid 90s. She denies any fever, night sweats. Cough is nonproductive, but she does get posttussive emesis frequently. Denies any chest pain or palpitations. MD elicited complaint: shortness of breath, cough and asthma attack Pertinent past history: asthma Onset (ago): week(s) Exacerbating factors: lying flat, exertion, movement, coughing, stress and allergies Relieving factors: oxygen, rest, bronchodilators and upright position Known history of: COPD and asthma Associated symptoms: Deny abdominal pain, chest pain, extremity pain, fever(s), hemoptysis, nausea, palpitations or vomiting Review of Systems General: Reports: 10 or more systems reviewed and unremarkable except in HPI and below Const: Reports: fatigue; Denies: fever(s), chills, body aches, change in appetite or change in weight ENMT: Denies: throat pain Card: Denies: chest pain, palpitations, irregular heart rhythm or edema Resp: Reports: dyspnea, non-productive cough and wheezing; Denies: change in phlegm color or hemoptysis GI: Denies: abdominal pain, nausea or vomiting Musc: Denies: neck pain, back pain or extremity pain Skin/Breast: Denies: rash Neuro: Denies: headache(s) or numbness in extremities PFS ED PFSH: Medical History (Updated 01/06/21 @ 22:56 by Christiana Rich MD) Acid reflux Asthma due to environmental allergies Asthma with acute exacerbation Chronic post-traumatic stress disorder (PTSD) Edema of extremity Hypokalemia 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 Mixed hyperlipidemia Morbid obesity with BMI of 45.0-49.9, adult KASEY on CPAP PTSD (post-traumatic stress disorder) Seasonal allergic rhinitis Sleep difficulties Tobacco use disorder Urinary hesitancy Surgical History History of bilateral knee arthroplasty History of carpal tunnel surgery of right wrist 2020 History of hysterectomy with bilateral oophorectomy History of skin graft On bilateral legs History of umbilical hernia repair Family History Mother Cancer Diabetes Brother Cancer Diabetes Social History Smoking and tobacco status: current every day smoker cigarettes Packs smoked per day: 1 Years cigarettes smoked: 27 Quit status (tobacco): considering quitting Second hand smoke exposure: No Smoking risk assessment/counseling performed?: No Alcohol intake: never Desire information about alcohol rehabilitation?: No Counseling given: No Desire information about substance/drug rehabilitation?: No Counseling given: No Adopted: Yes Caregiver/support person: No Lives independently: Yes Household members: significant other Housing: House Marital status: Single Number of children: 0 Number of grandchildren: 0 Highest education level completed: High School Graduate service: No Current occupational status: disabled Pets and animals: Yes Pets & animals: dog(s) Pets & animal details: jeff and arnulfosukhjinder History of recent travel: No Leisure activites: exercise Sexually active: Yes Current gender identity: Female /Yarsani: Alevism Special needs: No Agree to transfusion: Yes Financial difficulty paying for basics: Not Very Hard Physical Exam Const: COMMON NORMALS: patient oriented x3 and no limitations GENERAL APPEARANCE: cooperative and anxious; not in distress, not lethargic and not ill appearing NUTRITIONAL APPEARANCE: obese ORIENTATION/CONSCIOUSNESS: not lethargic HENMT: COMMON NORMALS: normocephalic and atraumatic HEAD & SCALP: normoce phalic and atraumatic Eye: COMMON NORMALS: Equal, round and reactive pupils present, EOMs intact bilaterally and conjunctivae normal CONJUNCTIVA: Yes conjunctivae normal PUPIL: Yes Equal, round and reactive pupils present Neck/C-Spine: COMMON NORMALS: full ROM, no lymphadenopathy and supple Lymph: LYMPHATIC: no lymphadenopathy noted and no lymphedema noted Resp: EFFORT & INSPECTION: Yes tachypneic, Yes labored, Yes Actively coughing, Yes audible wheezes, No tracheal deviation, No tripod positioning and Yes pr olonged expiratory phase AUSCULTATION: wheezes expiratory wheezes, inspiratory wheezes and throughout and diminished lung sounds Cardio: COMMON NORMALS: regular rate, regular rhythm, S1 normal heart sound present and S2 normal heart sound present RATE: regular rate RHYTHM: regular rhythm HEART SOUNDS: S1 normal heart sound present and S2 normal heart sound present Extremity: COMMON NORMALS: normal to inspection, full ROM, capillary refill normal and no clubbing, cyanosis or edema Neuro: COMMON NORMALS: patient oriented x3 SENSORIUM/ORIENTATION: No lethargic Skin: COMMON NORMALS: no rashes or lesions noted, no wounds and turgor normal GENERAL SKIN EXAM: no rashes or lesions noted and turgor normal Course Vital Signs: Vital signs: Vital Signs Pulse Rate 67 01/06/21 20:55 Respiratory Rate 16 01/06/21 20:55 Blood Pressure 129/82 01/06/21 20:55 Pulse Oximetry 95 01/06/21 20:55 MDM - SOB/Dyspnea MDM Narrative: Medical decision making narrative: 40-year-old female with asthma exacerbation, refractory to outpatient treatment. She was requiring supplemental oxygen today, up to 4 L to maintain O2 sats in the mid 90s. She has had multiple visits to the ED and her PCP for wheezing in the past 2 weeks. Symptoms improved after DuoNeb treatment and Solu-Medrol, oxygen was able to be weaned down to 2 L, O2 sats drop to<90 if further decreased. I think she will benefit from a longer period of observation and IV steroids to make sure her symptoms show continual improvement. The patient declines admission, even though we discussed that she currently still requires supplemental oxygen. She is alert and oriented x3, and shows understanding the risks of leaving AMA. An additional 60 mg IV dose of Solu- Medrol was given prior to discharge, and a prescription for prednisone 60 mg p.o. x5 days, nebulizer, albuterol Nebules was provided. Differential Diagnosis: Shortness of Breath Differential Diagnosis: Likely acute exacerbation of chronic obstructive airways disease, asthma with exacerbation and pulmonary embolism Medical Records: Attestation: I reviewed the patient's medical records. Lab Data: Attestation: I reviewed the patient's lab results. Labs: Lab Results 01/06/21 01/06/21 01/06/21 Range/Units 19:27 19:27 19:27 WBC 11.2 H (4.0-10.0) 10^3/ uL RBC 5.08 (4.1-5.3) 10^6/u L Hgb 15.0 (11.5-15.3) g/dL Hct 48.1 H (37.0-47.0) % MCV 94.7 (81-99) fL MCH 29.5 (28.0-34.0) pg MCHC 31.2 (30.0-36.0) g/dL RDW 12.7 (12.1-15.1) % Plt Count 245 (130-400) 10^3/c mm MPV 10.9 H (7.4-10.4) fL Neut % (Auto) 58.9 % Lymph % (Auto) 29.2 % [place] % (Auto) 7.2 % Eos % (Auto) 3.7 % Baso % (Auto) 0.7 % Neut # (Auto) 6.60 (1.8-7.7) 10^3/u L Lymph # (Auto) 3.3 (0.8-4.8) 10^3/u L [place] # (Auto) 0.8 (0.2-0.9) 10^3/u L Eos # (Auto) 0.4 (0.0-0.8) 10^3/u L Baso # (Auto) 0.1 (0.0-0.1) 10^3/u L Nucleated RBC % (a uto) 0 % Nucleated RBCs # 0.0 /100WBC D-Dimer <= 0.27 (0-0.59) ug/mIFE U Specimen Type Sample Site ABG pH (7.35-7.45) ABG pCO2 (35-45) mmHg ABG pO2 (80.0-100.0) mmH g ABG HCO3 (22-26) mmol/L ABG O2 Saturation ABG Base Excess (-2.0-2.0) mmol/ L Gaudencio Test A-a O2 Gradient (5-10) mmHg Hematocrit (37-47) % Hgb O2 Saturation (95-100) % Carboxyhemoglobin (0.4-20.1) %THgb Methemoglobin (0.4-1.5) % Total Hemoglobin (12-16) g/dL Ionized Calcium (1.1-1.4) mmol/L O2 Delivery Device O2 Liters/Min % FiO2 % Client Application Support Engineer ID Sodium 138 (136-145) mmol/L Potassium 4.1 (3.5-5.1) mmol/L Chloride 101 (98-107) mmol/L Carbon Dioxide 28 (22-29) mmol/L Anion Gap 13.1 (5-19) BUN 10 (6-20) mg/dL Creatinine 0.7 (0.5-0.9) mg/dL GFR Calculation 92.7 (90-130) mL/min Glucose 88 (65-115) mg/dL Calculated Osmolal ity 284 L (285-295) mOsm/k g Calcium 8.7 (8.5-10.5) mg/dL Total Bilirubin 0.8 (0.15-1.2) mg/dL AST 18 (0-32) U/L ALT 15 (0-33) U/L Alkaline Phosphata se 85 (35-105) IU/L Troponin T Baselin e (0-10) ng/L Troponin T 120 Min [place] (0-10) ng/L Delta Troponin T (0-10) ABS# Total Protein 6.7 (6.6-8.7) g/dL Albumin 4.1 (3.5-5.2) g/dL Globulin 2.6 (1.3-4.6) g/dL 01/06/21 01/06/21 01/06/21 Range/Units 19:27 21:00 21:25 WBC (4.0-10.0) 10^3/ uL RBC (4.1-5.3) 10^6/u L Hgb (11.5-15.3) g/dL Hct (37.0-47.0) % MCV (81-99) fL MCH (28.0-34.0) pg MCHC (30.0-36.0) g/dL RDW (12.1-15.1) % Plt Count (130-400) 10^3/c mm MPV (7.4-10.4) fL Neut % (Auto) % Lymph % (Auto) % [place] % (Auto) % Eos % (Auto) % Baso % (Auto) % Neut # (Auto) (1.8-7.7) 10^3/u L Lymph # (Auto) (0.8-4.8) 10^3/u L [place] # (Auto) (0.2-0.9) 10^3/u L Eos # (Auto) (0.0-0.8) 10^3/u L Baso # (Auto) (0.0-0.1) 10^3/u L Nucleated RBC % (a uto) % Nucleated RBCs # /100WBC D-Dimer (0-0.59) ug/mIFE U Specimen Type Arterial Sample Site Brachial, left ABG pH 7.39 (7.35-7.45) ABG pCO2 46.9 H (35-45) mmHg ABG pO2 89.1 (80.0-100.0) mmH g ABG HCO3 28.4 H (22-26) mmol/L ABG O2 Saturation 97.6 ABG Base Excess 2.6 H (-2.0-2.0) mmol/ L Gaudencio Test Pos A-a O2 Gradient 8.7 (5-10) mmHg Hematocrit 45.0 (37-47) % Hgb O2 Saturation 96.7 (95-100) % Carboxyhemoglobin 0.7 (0.4-20.1) %THgb Methemoglobin 0.2 L (0.4-1.5) % Total Hemoglobin 14.7 (12-16) g/dL Ionized Calcium 1.2 (1.1-1.4) mmol/L O2 Delivery Device Nc O2 Liters/Min 2.5 % FiO2 30.0 % Client Application Support Engineer ID [id number] Sodium 142.0 (136-145) mmol/L Potassium 4.0 (3.5-5.1) mmol/L Chloride (98-107) mmol/L Carbon Dioxide (22-29) mmol/L Anion Gap (5-19) BUN (6-20) mg/dL Creatinine (0.5-0.9) mg/dL GFR Calculation (90-130) mL/min Glucose 97.0 (65-115) mg/dL Calculated Osmolal ity (285-295) mOsm/k g Calcium (8.5-10.5) mg/dL Total Bilirubin (0.15-1.2) mg/dL AST (0-32) U/L ALT (0-33) U/L Alkaline Phosphata se (35-105) IU/L Troponin T Baselin e 6 (0-10) ng/L Troponin T 120 Min [place] 6.00 (0-10) ng/L Delta Troponin T 0 (0-10) ABS# Total Protein (6.6-8.7) g/dL Albumin (3.5-5.2) g/dL Globulin (1.3-4.6) g/dL EKG Data^: EKG 1: Attestation: I personally reviewed and interpreted this EKG as follows: EKG Interpretation Date: 01/06/21 EKG interpretation time: 20:30 Interpretation: Sinus rhythm with a rate of 67, CT 160, QRS 83, QTc 397, normal axis, no ST segment elevation or depression. Discharge Plan Discharge Patient Disposition: Left Against Medical Advice Clinical Impression: Hypoxia Asthma with exacerbation Qualifiers: Asthma severity: moderate Asthma persistence: persistent Qualified Code(s): J45.41 - Moderate persistent asthma with (acute) exacerbation Condition: Stable Prescriptions: New albuterol sulfate 2.5 mg /3 mL (0.083 %) solution for nebulization 2.5 mg inhalation TID 10 Days Qty: 90 RF: 0 (DME) Compact Compressor Nebulizer Misc See Rx Instructions .ROUTE Qty: 1 RF: 0 prednisone 20 mg tablet 60 mg PO DAILY 5 Days Qty: 15 RF: 0 No Action fluoxetine [Prozac] 20 mg capsule 20 mg PO QAM Qty: 30 RF: 2 meclizine 25 mg tablet 25 mg PO TID PRN (Reason: dizziness) 3 Days Qty: 9 RF: 0 tizanidine 2 mg tablet 2 mg PO BEDTIME PRN (Reason: Muscle Spasm) RF: 0 isosorbide dinitrate 30 mg tablet 15 mg PO QAM RF: 0 tamsulosin 0.4 mg capsule 0.4 mg PO QAM RF: 0 fluoxetine 10 mg capsule 10 mg PO QAM RF: 0 montelukast 10 mg tablet 10 mg PO QAM RF: 0 furosemide 20 mg tablet 20 mg PO DAILY RF: 0 ergocalciferol (vitamin D2) 1,250 mcg (50,000 unit) capsule 1,250 mcg PO Q7D RF: 0 potassium chloride 10 mEq tablet,ER particles/crystals 10 meq PO QAM RF: 0 Voltaren 1 % gel 2 g topical DAILY PRN (Reason: Pain) RF: 0 albuterol sulfate 90 mcg/actuation HFA aerosol inhaler 2 inh inhalation Q6H PRN (Reason: shortness of breath or wheezing) 30 Days RF: 0 Discharge Orders: Discharge ED (Routine); Ordered 01/06/21 Ordered By: Christiana Rich Referrals: Flakita Kerr, SHARONC [Primary Care Provider] - Discharge Diet: Advance as tolerated Discharge Activity: Increase activity as tolerated Patient Instructions: Asthma (ED) Activity Restrictions/Additional Instructions: Call to schedule follow-up with your primary care doctor in the next 2 to 3 days. Make sure to finish your steroid pills. Return immediately to the ER for worsening symtoms. Coding Level of Care Code ED Video Rental Clerk for Aj Whalen
[2021-01-06] MEDS: ipratropium-albuterol 3 mL Neb INHALATION (18:27)
[2021-01-06 18:28] VITALS: PULSE 72; RESP 16; O2SAT 96
[2021-01-06 18:32] VITALS: PULSE 68
[2021-01-06 19:11] VITALS: BP 116/72; PULSE 60; RESP 16; O2SAT 97
[2021-01-06 19:33] LABS: Basophils # 0.1 10^3/uL (0.0-0.1); Basophils % 0.7 %; Eosinophils # 0.4 10^3/uL (0.0-0.8); Eosinophils % 3.7 %; Hematocrit 48.1 % (37.0-47.0); Lymphocytes # 3.3 10^3/uL (0.8-4.8); Lymphocytes % 29.2 %; Mean Corpuscular HGB Conc 31.2 g/dL (30.0-36.0); Mean Corpuscular Hemoglobin 29.5 pg (28.0-34.0); Mean Corpuscular Volume 94.7 fL (81-99); Mean Platelet Volume 10.9 fL (7.4-10.4); Monocytes # 0.8 10^3/uL (0.2-0.9); Monocytes % 7.2 %; Neutrophils % 58.9 %; Nucleated Red Blood Cells % 0 %; Platelet Count 245 10^3/cmm (130-400); Red Blood Count 5.08 10^6/uL (4.1-5.3); Red Cell Distribution Width 12.7 % (12.1-15.1); White Blood Count 11.2 10^3/uL (4.0-10.0)
--- NOTE | 2021-01-06 19:38 | ECG_ITS ---
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 Measurements Intervals [place] Rate: 67 P: 72 [place]: 160 QRS: 47 QRSD: 83 T: 32 QT: 382 QTc: 404 Interpretive Statements SINUS RHYTHM WITH SINUS ARRHYTHMIA Compared to ECG 01/06/2021 17:59:43 No significant changes Electronically Signed On 01-07-2021 7:27:04 CDT by Alberta Carson M.D. [id number]
[2021-01-06 19:48] LABS: Alanine Aminotransferase 15 U/L (0-33); Albumin Level 4.1 g/dL (3.5-5.2); Alkaline Phosphatase 85 IU/L (35-105); Anion Gap 13.1 (5-19); Aspartate Amino Transferase 18 U/L (0-32); Blood Urea Nitrogen 10 mg/dL (6-20); Calcium 8.7 mg/dL (8.5-10.5); Carbon Dioxide 28 mmol/L (22-29); Chloride 101 mmol/L (98-107); Globulin 2.6 g/dL (1.3-4.6); Glomerular Filtration Rate 92.7 mL/min (90-130); Glucose 88 mg/dL (65-115); Osmolality Calculated 284 mOsm/kg (285-295); Potassium 4.1 mmol/L (3.5-5.1); Sodium 138 mmol/L (136-145); Total Bilirubin 0.8 mg/dL (0.15-1.2); Total Protein 6.7 g/dL (6.6-8.7)
[2021-01-06 19:50] LABS: Troponin(5th) Baseline 6 ng/L (0-10)
[2021-01-06 20:03] LABS: D Dimer <= 0.27 ug/mIFEU (0-0.59)
[2021-01-06 20:55] VITALS: BP 129/82; PULSE 67; RESP 16; O2SAT 95
[2021-01-06 21:05] LABS: ABG PH Result 7.39 (7.35-7.45); Blood Gas Allen Test Pos; Blood Gas LPM 2.5 %; Blood Gas Sample Site Brachial, left; Blood Gas Sample Type Arterial; Ionized Calcium Level - ABG 1.2 mmol/L (1.1-1.4); Oxygen Device NC
[2021-01-06 21:06] LABS: ABG PCO2 46.9 mmHg (35-45); Alveolar-Arterial Oxygen Gradi 8.7 mmHg (5-10); Base Excess ABG 2.6 mmol/L (-2.0-2.0); Carboxyhemoglobin 0.7 %THgb (0.4-20.1); HCO3 ABG 28.4 mmol/L (22-26); HGB O2 Sat 96.7 % (95-100); Methemoglobin 0.2 % (0.4-1.5); Oxygen Saturation ABG 97.6; PO2 ABG 89.1 mmHg (80.0-100.0); Total Hemoglobin 14.7 g/dL (12-16)
[2021-01-06 21:55] LABS: Troponin 5 2HR Delta 0 ABS# (0-10)
== END 2021-01-06 23:36 | disposition left against medical advice (07) ==
PROVIDERS: Nurse Practitioner Family; Emergency Provider Family Medicine; PCP Nurse Practitioner
DX: J45.41 Moderate persistent asthma with (acute) exacerbation (principal); R09.02 Hypoxemia; Z53.21 Procedure and treatment not carried out due to patient leaving prior to being seen by health care provider; E78.2 Mixed hyperlipidemia; F17.210 Nicotine dependence, cigarettes, uncomplicated
CPT/HCPCS: 36415; 36600; 71045; 80051; 80053; 82330; 82805; 84484; 85025; 85378; 93005; 94640; 96374; 96376; 99284; J2930

== ENCOUNTER → 2021-01-11 09:07 | Outpatient (BNVA) | payer MEDICARE, MEDICAID, SELFPAY ==
[2020-12-30 09:37] VITALS: BP 107/72; BMI 35.9
== END ==
PROVIDERS: PCP Nurse Practitioner; Visit Provider Nurse Practitioner Psychiatric/Mental Health
DX: F43.12 Post-traumatic stress disorder, chronic (principal); F02.80 Dementia in other diseases classified elsewhere, unspecified severity, without behavioral disturbance, psychotic disturbance, mood disturbance, and anxiety; S06.9X9S Unspecified intracranial injury with loss of consciousness of unspecified duration, sequela
CPT/HCPCS: 73610; 99213

== ENCOUNTER 2021-01-19 12:27 | Emergency (ER) | payer MEDICARE, MEDICAID, SELFPAY ==
[2020-12-30 09:37] VITALS: BP 107/72; BMI 35.9
[2021-01-19 12:57] VITALS: BP 134/87; PULSE 67; RESP 18; TEMP 36.3; O2SAT 95; BMI 50.5
--- NOTE | 2021-01-19 13:06 | XR_ITS ---
WS: [id number] Left ankle, 3 views, 01/19/2021 Clinical Data: trauma Comparison: Left ankle, 01/11/2021 Findings: There is a small fracture of the tip of the lateral malleolus. No displacement is seen. There is soft tissue swelling over lateral malleolus. The medial malleolus is normal. The ankle mortise is intact. There is a small plantar spur. XR/XR ankle LT min 3V* [id number] Impression: Minimal undisplaced fracture of tip of left lateral malleolus.
--- NOTE | 2021-01-19 13:07 | W.ED.EXTPRO ---
HPI - Extremity Problem General: Chief complaint: Extremity Injury, Lower Stated complaint: L. ANKLE INJURY/PAIN Time Seen by Provider: 01/19/21 13:05 Source: patient Mode of arrival: ambulatory Limitations: no limitations History of Present Illness: HPI Narrative: left ankle pain after fall 3 days ago Complaint: extremity pain Location: left and lower extremity Severity scale (1-10): 5 Quality: aching Review of Systems General: Reports: 10 or more systems reviewed and unremarkable except in HPI and below Musc: Reports: extremity pain (left ankle ) and joint swelling PFSH ED PFSH: Medical History Acid reflux Asthma due to environmental allergies Asthma with acute exacerbation Chronic post-traumatic stress disorder (PTSD) Edema of extremity Hypokalemia 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 Mixed hyperlipidemia Morbid obesity with BMI of 45.0-49.9, adult KASEY on CPAP PTSD (post-traumatic stress disorder) Seasonal allergic rhinitis Sleep difficulties Tobacco use disorder Urinary hesitancy Surgical History History of bilateral knee arthroplasty History of carpal tunnel surgery of right wrist 2020 History of hysterectomy with bilateral oophorectomy History of skin graft On bilateral legs History of umbilical hernia repair Family History Mother Cancer Diabetes Brother Cancer Diabetes Social History Smoking and tobacco status: current every day smoker cigarettes Packs smoked per day: 1 Years cigarettes smoked: 27 Quit status (tobacco): considering quitting Second hand smoke exposure: No Smoking risk assessment/counseling performed?: No Alcohol intake: never Desire information about alcohol rehabilitation?: No Counseling given: No Desire information about substance/drug rehabilitation?: No Counseling given: No Adopted: Yes Caregiver/support person: No Lives independently: Yes Household members: significant other Housing: House Marital status: Single Number of children: 0 Number of grandchildren: 0 Highest education level completed: High School Graduate service: No Current occupational status: disabled Pets and animals: Yes Pets & animals: dog(s) Pets & animal details: su History of recent travel: No Leisure activites: exercise Sexually active: Yes Current gender identity: Female /B[employer]ist: Religious Special needs: No Agree to transfusion: Yes Financial difficulty paying for basics: Not Very Hard Physical Exam Const: COMMON NORMALS: no acute distress, patient oriented x3, no limitations and alert GENERAL APPEARANCE: cooperative and comfortable ORIENTATION/CONSCIOUSNESS: Yes awake, Yes oriented to person, Yes oriented to place and Yes oriented to time HENMT: COMMON NORMALS: normocephalic, atraumatic, external ears normal, EAC's normal, TM's normal bilaterally and Normal external nose present HEAD & SCALP: normal to inspection, normocephalic and atraumatic FACE & SINUS: normal facial exam, sinuses nontender and face symmetric NOSE: Normal external nose present, Normal nares present and No nasal discharge present EXTERNAL EAR: Yes external ears normal EXTERNAL AUDITORY CANAL: EAC's normal TYMPANIC MEMBRANE: TM's normal bilaterally MOUTH: Normal oral and palatal mucosa present, lip normal and tongue normal THROAT: posterior oropharynx normal, tonsils normal and uvula midline Eye: COMMON NORMALS: Equal, round and reactive pupils present, EOMs intact bilaterally and conjunctivae normal GENERAL EYE: appearance normal, both eyes and all related structures and normal light reflex EYELID: eyelids normal CONJUNCTIVA: Yes conjunctivae normal PUPIL: Yes Equal, round and reactive pupils present EOM: Yes EOM abnormal DIRECT OPHTHALMOSCOPY: Yes normal light reflex Neck/C-Spine: COMMON NORMALS: full ROM, no lymphadenopathy, supple, no meningeal signs, no JVD and Thyroid normal GENERAL: Yes normal visual inspection THYROID: Thyroid normal CERVICAL SPINE: Yes cervical ROM normal and Yes normal cervical lordosis Lymph: LYMPHATIC: no lymphadenopathy noted Chest: COMMONS NORMALS: normal inspection of the chest and normal palpation of entire chest wall Resp: COMMON NORMALS: normal respiratory effort, No retractions and clear to auscultation bilaterally AUSCULTATION: clear to auscultation bilaterally Cardio: COMMON NORMALS: no JVD, regular rate, regular rhythm, S1 normal heart sound present, S2 normal heart sound present, No gallops present (Cardio), No clicks present (Cardio), No murmurs present (Cardio), No rub (Cardio) and Peripheral pulses 2+ throughout RATE: regular rate RHYTHM: regular rhythm HEART SOUNDS: S1 normal heart sound present and S2 normal heart sound present PERIPHERAL PULSES: Peripheral pulses 2+ throughout GI: COMMON NORMALS: Normal to inspection, nondistended, normoactive bowel sounds present, Soft to palpation, non-tender and no masses PALPATION: Yes Soft to palpation : COMMON NORMALS: Yes no CVA tenderness and Yes normal external appearance BLADDER/KIDNEY EXAM: Yes no CVA tenderness Back/Pelvis: COMMON NORMALS: no CVA tenderness, thoracic and lumbar spine normal to inspection, no thoracic nor lumbar tenderness and thoraco-lumbar ROM normal Extremity: COMMON NORMALS: normal to inspection, full ROM, capillary refill normal, no joint enlargement, no clubbing, cyanosis or edema, no calf tenderness and no pedal edema GENERAL: Yes normal exam except as noted and Yes weight-bearing difficulty LEFT LOWER EXTREMITY: Yes ankle joint Left ankle: Yes inspection (normal appearance ), Yes palpation (slight tenderness) and Yes neurovascular exam (intact) Neuro: COMMON NORMALS: patient oriented x3, moves all extremities, no focal motor deficits, no sensory deficits noted and gait normal SENSORIUM/ORIENTATION: Yes alert, Yes oriented to person, Yes oriented to place and Yes oriented to time MENINGEAL SIGNS: Yes no meningeal signs Psych: COMMON NORMALS: mental status grossly normal, Normal thought process present, cooperative, normal affect, speech normal and activity/motor behavior normal SPEECH: Yes normal speech THOUGHT PROCESS: Normal thought process present Skin: COMMON NORMALS: no rashes or lesions noted, no wounds and turgor normal GENERAL SKIN EXAM: no rashes or lesions noted and turgor normal Course ED course: Pt presents to Er with complaints of left ankle pain after fall this past weekend. She was ambulatory upon her arrival POV. Xray ordered. No acuted deformity. Awaiting radiologist review. Pain meds given. Reevaluation(s): Reevaluation #1: Pt has a nondisplaced fx of the left lateral malleolus. Will DC with ortho follow up. Time: 13:52 Vital Signs: Vital signs: Vital Signs Temperature 97.3 F L 01/19/21 12:57 Pulse Rate 70 01/19/21 13:24 Respiratory Rate 16 01/19/21 13:24 Blood Pressure 134/87 01/19/21 13:24 Pulse Oximetry 96 01/19/21 13:24 MDM - Extremity (Nontraumatic) Imaging Data^: Xray Ortho: Radiologist's impression: [address] [address] XRay Report Signed Patient: Dannielle Baxter Unit #: [id number] : 1980 Age/Sex: 40 / F ADM Date: 01/19/21 Loc: ER Room/Bed: Attending Dr: Ordering Provider/Ordering MD: Yomaira Manzo NP Date of Service: 01/19/21 Procedure(s): XR ankle LT min 3V* 18034 Accession Number(s): [id number] Report Number: [id number] WS: [id number] Left ankle, 3 views, 01/19/2021 Clinical Data: trauma Comparison: Left ankle, 01/11/2021 Findings: There is a small fracture of the tip of the lateral malleolus. No displacement is seen. There is soft tissue swelling over lateral malleolus. The medial malleolus is normal. The ankle mortise is intact. There is a small plantar spur. XR/XR ankle LT min 3V* [id number] Impression: Minimal undisplaced fracture of tip of left lateral malleolus. Dictated By: Megan Rolon MD Signed By: Megan Rolon MD Signed Date/Time: 01/19/21 1340 DD/ 1338 Discharge Plan Discharge Condition: Stable Prescriptions: New tramadol 50 mg tablet 50 mg PO BID PRN (Reason: pain) Qty: 14 RF: 0 No Action fluoxetine [Prozac] 20 mg capsule 20 mg PO QAM Qty: 30 RF: 2 fluoxetine 10 mg capsule 10 mg PO QAM Qty: 30 RF: 2 (DME) oxygen concentrator w/portable tank See Rx Instructions .Route .MEDSUPPLY Qty: 1 RF: 0 meclizine 25 mg tablet 25 mg PO TID PRN (Reason: dizziness) 3 Days Qty: 9 RF: 0 tizanidine 2 mg tablet 2 mg PO BEDTIME PRN (Reason: Muscle Spasm) RF: 0 isosorbide dinitrate 30 mg tablet 15 mg PO QAM RF: 0 tamsulosin 0.4 mg capsule 0.4 mg PO QAM RF: 0 montelukast 10 mg tablet 10 mg PO QAM RF: 0 furosemide 20 mg tablet 20 mg PO DAILY RF: 0 ergocalciferol (vitamin D2) 1,250 mcg (50,000 unit) capsule 1,250 mcg PO Q7D RF: 0 potassium chloride 10 mEq tablet,ER particles/crystals 10 meq PO QAM RF: 0 Voltaren 1 % gel 2 g topical DAILY PRN (Reason: Pain) RF: 0 (DME) Compact Compressor Nebulizer Misc See Rx Instructions .Route Qty: 1 RF: 0 albuterol sulfate 90 mcg/actuation HFA aerosol inhaler 2 inh inhalation Q6H PRN (Reason: shortness of breath or wheezing) 30 Days RF: 0 Discharge Orders: Discharge ED (Routine); Ordered 01/19/21 Ordered By: Yomaira Manzo Referrals: Flakita Kerr, [facility]PERATIONS [facility]IST[facility] [Primary Care Provider] - Discharge Diet: Usual diet Discharge Activity: Limit activity as instructed and Use walker/crutches as instructed Coding Level of Care Code ED 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
[2021-01-19 13:24] VITALS: BP 134/87; PULSE 70; RESP 16; O2SAT 96
[2021-01-19] MEDS: TRAMadol 50 mg Tablet PO (14:05)
--- NOTE | 2021-01-21 14:33 | DCPLANNER ---
service desk manager had message to schedule a follow up appointment for patient with ortho. service desk manager called the ortho clinic, spoke with Dottie, gave clinic patients information. service desk manager was told that patients information would be printed and reviewed. Clinic will call patient with appointment information.
--- NOTE | 2021-01-28 15:23 | DCPLANNER ---
Patient had a follow up appointment scheduled for 01.25.[address] Melissa at [facility] - patient did attend appointment.
== END 2021-01-19 14:21 ==
PROVIDERS: Emergency Provider Nurse Practitioner Family; PCP Nurse Practitioner
DX: M25.572 Pain in left ankle and joints of left foot (principal); E78.2 Mixed hyperlipidemia; F17.210 Nicotine dependence, cigarettes, uncomplicated
CPT/HCPCS: 73610; 99283

== ENCOUNTER 2021-01-25 16:30 | Outpatient (CLI) | payer MEDICARE, MEDICAID, SELFPAY ==
[2020-12-30 09:37] VITALS: BP 107/72; BMI 35.9
== END 2021-01-25 16:31 | disposition home or self-care (01) ==
LOC: SPT 01-26 08:31
PROVIDERS: PCP Nurse Practitioner; Visit Provider Orthopaedic Surgery
DX: Z46.89 Encounter for fitting and adjustment of other specified devices (principal); S82.62XD Displaced fracture of lateral malleolus of left fibula, subsequent encounter for closed fracture with routine healing; X58.XXXD Exposure to other specified factors, subsequent encounter
CPT/HCPCS: 97760; L4361

== ENCOUNTER 2021-01-29 18:49 | Emergency (ER) | payer MEDICARE, MEDICAID, SELFPAY ==
[2020-12-30 09:37] VITALS: BP 107/72; BMI 35.9
[2021-01-29 19:04] VITALS: BP 119/82; PULSE 91; RESP 16; TEMP 36.6; O2SAT 95; BMI 47.0
--- NOTE | 2021-01-29 20:21 | ED_ITS ---
HPI - Abdominal Pain General: Chief Complaint: Abdominal Pain Stated Complaint: stomach pain Time Seen by Provider: 01/29/21 20:13 History of Present Illness: HPI narrative: Patient is a 40-year-old female comes to the ED with abdominal pain. Patient has a past surgical history of an umbilical hernia and is concerned that her hernia is returning. Abdominal pain started 3 days ago. Pain is located in the periumbilical region and she rates the pain a 10 out of 10. Denies any mass or protrusion and abdomen. She also reports having some diarrhea and nausea. Denies fever, chills, constipation, blood in stool, dysuria or hematuria. Associated Symptoms: Reports diarrhea and nausea; Denies chills, constipation, dysuria, fever(s), hematochezia, hematuria and vomiting Review of Systems Const: Denies: fever(s), chills or fatigue Eyes: Denies: change in vision or eye discomfort ENMT: Denies: throat pain, odynophagia, nasal discharge or nasal congestion Card: Denies: chest pain, palpitations, edema, swelling of feet/ankles, dyspnea on exertion or orthopnea Resp: Denies: dyspnea, productive cough or non-productive cough GI: Reports: abdominal pain, nausea and diarrhea; Denies: vomiting, constipation or hematochezia : Denies: flank pain, dysuria or hematuria Musc: Denies: neck pain, back pain or extremity swelling Skin/Breast: Denies: rash or new lesions Neuro: Denies: headache(s), numbness in extremities or weakness in extremities PFS ED PFSH: Medical History Acid reflux Asthma due to environmental allergies Asthma with acute exacerbation Chronic post-traumatic stress disorder (PTSD) Edema of extremity Hypokalemia 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 Mixed hyperlipidemia Morbid obesity with BMI of 45.0-49.9, adult KASEY on CPAP PTSD (post-traumatic stress disorder) Seasonal allergic rhinitis Sleep difficulties Tobacco use disorder Urinary hesitancy Surgical History History of bilateral knee arthroplasty History of carpal tunnel surgery of right wrist 2020 History of hysterectomy with bilateral oophorectomy History of skin graft On bilateral legs History of umbilical hernia repair Family History Mother Cancer Diabetes Brother Cancer Diabetes Social History Smoking and tobacco status: current every day smoker cigarettes Packs smoked per day: 1 Years cigarettes smoked: 27 Quit status (tobacco): considering quitting Second hand smoke exposure: No Smoking risk assessment/counseling performed?: No Alcohol intake: never Desire information about alcohol rehabilitation?: No Counseling given: No Desire information about substance/drug rehabilitation?: No Counseling given: No Adopted: Yes Caregiver/support person: No Lives independently: Yes Household members: significant other Housing: House Marital status: Single Number of children: 0 Number of grandchildren: 0 Highest education level completed: High School Graduate service: No Current occupational status: disabled Pets and animals: Yes Pets & animals: dog(s) Pets & animal details: su History of recent travel: No Leisure activites: exercise Sexually active: Yes Current gender identity: Female /Pentecostal: Amish Special needs: No Agree to transfusion: Yes Financial difficulty paying for basics: Not Very Hard Physical Exam Const: COMMON NORMALS: no acute distress, patient oriented x3 and alert GENERAL APPEARANCE: cooperative and comfortable NUTRITIONAL APPEARANCE: obese HENMT: COMMON NORMALS: normocephalic HEAD & SCALP: normocephalic MOUTH: Normal oral and palatal mucosa present THROAT: posterior oropharynx normal and uvula midline Neck/C-Spine: COMMON NORMALS: supple GENERAL: Yes normal visual inspection Resp: COMMON NORMALS: normal respiratory effort, No retractions, No use of accessory muscles and clear to auscultation bilaterally AUSCULTATION: clear to auscultation bilaterally Cardio: COMMON NORMALS: regular rate, regular rhythm, S1 normal heart sound present, S2 normal heart sound present, No gallops present (Cardio), No clicks present (Cardio), No murmurs present (Cardio) and Peripheral pulses 2+ throughout RATE: regular rate RHYTHM: regular rhythm HEART SOUNDS: S1 normal heart sound present and S2 normal heart sound present PERIPHERAL PULSES: Peripheral pulses 2+ throughout GI: COMMON NORMALS: Normal to inspection, nondistended, normoactive bowel sounds present, Soft to palpation and no masses INSPECTION: Yes central obesity PALPATION: Yes Soft to palpation and Yes Tenderness to palpation present (GI) (Mild periumbilical tenderness.) : COMMON NORMALS: Yes no CVA tenderness BLADDER/KIDNEY EXAM: Yes no CVA tenderness Back/Pelvis: COMMON NORMALS: no CVA tenderness Extremity: NARRATIVE EXTREMITY EXAM: Patient's left foot is in a boot. GENERAL: Yes normal exam except as noted Neuro: COMMON NORMALS: patient oriented x3 SENSORIUM/ORIENTATION: Yes alert GAIT: Yes Normal gait present Skin: GENERAL SKIN EXAM: dry skin Course Reevaluation(s): Reevaluation #1: Patient received IV Zofran and morphine her symptoms improved. Vital Signs: Vital signs: Vital Signs Temperature 97.8 F 01/29/21 19:04 Pulse Rate 80 01/29/21 22:52 Respiratory Rate 16 01/29/21 22:52 Blood Pressure 129/88 01/29/21 22:52 Pulse Oximetry 96 01/29/21 22:52 MDM - Abdominal Pain MDM Narrative: Medical decision making narrative: Patient is a 40-year-old female comes to the ED with abdominal pain diarrhea. Patient says symptoms started a couple days ago. Exam shows a nontoxic-appearing 40-year-old female in no acute distress or pain. She has some mild periumbilical tenderness of her abdomen upon palpation. Vitals are stable. Labs are unremarkable. CT of abdomen pelvis showed enteritis. Patient was given IV Zofran and morphine while here in the ED and her symptoms improved. Patient was diagnosed with viral enteritis and discharged home with a prescription for Zofran. She was told to follow-up with her PCP in 7 to 10 days for reevaluation. Return to ED precautions given. Patient understood and agreed with plan. Lab Data: Attestation: I reviewed the patient's lab results. Labs: Lab Results 01/29/21 01/29/21 01/29/21 Range/Units 20:45 20:45 20:45 WBC Cancelled Corrected WBC Cancelled RBC Cancelled Hgb Cancelled Hct Cancelled MCV Cancelled MCH Cancelled MCHC Cancelled RDW Cancelled Plt Count Cancelled MPV Cancelled Gran % Cancelled Neut % (Auto) Cancelled Lymph % (Auto) Cancelled [place] % (Auto) Cancelled Eos % (Auto) Cancelled Baso % (Auto) Cancelled Neut # (Auto) Cancelled Lymph # (Auto) Cancelled [place] # (Auto) Cancelled Eos # (Auto) Cancelled Baso # (Auto) Cancelled Absolute Gran (aut o) Cancelled Nucleated RBC % (a uto) Cancelled Nucleated RBCs # Cancelled Sodium Cancelled Potassium Cancelled Chloride Cancelled Carbon Dioxide Cancelled Anion Gap Cancelled BUN Cancelled Creatinine Cancelled GFR Calculation Cancelled Glucose Cancelled Calculated Osmolal ity Cancelled Calcium Cancelled Total Bilirubin Cancelled AST Cancelled ALT Cancelled Alkaline Phosphata se Cancelled Total Protein Cancelled Albumin Cancelled Globulin Cancelled Lipase Cancelled HCG, Qual Cancelled Urine Color (Yellow) Urine Appearance (CLEAR) Urine pH (5-7) Ur Specific Gravit y (1.005-1.030) Urine Protein (Negative) Urine Glucose (UA) (Normal) Urine Ketones (Negative) Urine Blood (Negative) Urine Nitrate (Negative) Urine Bilirubin (Negative) Urine Urobilinogen (Negative) mg/dL Ur Leukocyte Josey ase (Negative) Urine RBC (0-2) /hpf Urine WBC (0-5) /hpf Ur Squamous Epith Cells (0-5) /hpf Amorphous Sediment Urine Bacteria (NONE) /hpf 01/29/21 01/29/21 01/29/21 Range/Units 20:45 21:12 21:12 WBC 9.1 Corrected WBC RBC 4.74 Hgb 14.1 Hct 44.5 MCV 93.9 MCH 29.7 MCHC 31.7 RDW 13.2 Plt Count 228 MPV 11.1 H Gran % Neut % (Auto) 47.6 Lymph % (Auto) 39.7 [place] % (Auto) 8.1 Eos % (Auto) 3.6 Baso % (Auto) 0.7 Neut # (Auto) 4.32 Lymph # (Auto) 3.6 [place] # (Auto) 0.7 Eos # (Auto) 0.3 Baso # (Auto) 0.1 Absolute Gran (aut o) Nucleated RBC % (a uto) 0 Nucleated RBCs # 0.0 Sodium 138 Potassium 4.3 Chloride 102 Carbon Dioxide 24 Anion Gap 16.3 BUN 9 Creatinine 0.7 GFR Calculation 92.7 Glucose 89 Calculated Osmolal ity 284 L Calcium 8.5 Total Bilirubin 0.7 AST 11 ALT 12 Alkaline Phosphata se 86 Total Protein 5.6 L Albumin 3.7 Globulin 1.9 Lipase 16 HCG, Qual Urine Color Yellow (Yellow) Urine Appearance Sl hazy (CLEAR) Urine pH 5 (5-7) Ur Specific Gravit y 1.020 (1.005-1.030) Urine Protein Neg (Negative) Urine Glucose (UA) Norm (Normal) Urine Ketones Negative (Negative) Urine Blood Neg (Negative) Urine Nitrate Negative (Negative) Urine Bilirubin Neg (Negative) Urine Urobilinogen Norm (Negative) mg/dL Ur Leukocyte Josey ase Negative (Negative) Urine RBC 0-4 H (0-2) /hpf Urine WBC 0-4 H (0-5) /hpf Ur Squamous Epith Cells 10-15 H (0-5) /hpf Amorphous Sediment Not Reportable Urine Bacteria Trace (NONE) /hpf 01/29/21 Range/Units 21:12 WBC Corrected WBC RBC Hgb Hct MCV MCH MCHC RDW Plt Count MPV Gran % Neut % (Auto) Lymph % (Auto) [place] % (Auto) Eos % (Auto) Baso % (Auto) Neut # (Auto) Lymph # (Auto) [place] # (Auto) Eos # (Auto) Baso # (Auto) Absolute Gran (aut o) Nucleated RBC % (a uto) Nucleated RBCs # Sodium Potassium Chloride Carbon Dioxide Anion Gap BUN Creatinine GFR Calculation Glucose Calculated Osmolal ity Calcium Total Bilirubin AST ALT Alkaline Phosphata se Total Protein Albumin Globulin Lipase HCG, Qual Negative Urine Color (Yellow) Urine Appearance (CLEAR) Urine pH (5-7) Ur Specific Gravit y (1.005-1.030) Urine Protein (Negative) Urine Glucose (UA) (Normal) Urine Ketones (Negative) Urine Blood (Negative) Urine Nitrate (Negative) Urine Bilirubin (Negative) Urine Urobilinogen (Negative) mg/dL Ur Leukocyte Josey ase (Negative) Urine RBC (0-2) /hpf Urine WBC (0-5) /hpf Ur Squamous Epith Cells (0-5) /hpf Amorphous Sediment Urine Bacteria (NONE) /hpf Imaging Data ^: CT Abd/Pel: Attestation: I personally reviewed and interpreted this imaging study as follows: Radiologist's impression: [address] [address] [address] Scan Report Signed Patient: Dannielle Baxter Unit #: [id number] : 1980 Age/Sex: 40 / F ADM Date: 01/29/21 Loc: ER Room/Bed: Attending Dr: Ordering Provider/Ordering MD: Yrn Walker Date of Service: 01/29/21 Procedure(s): CT abdomen pelvis w con* [id number] Accession Number(s): [id number] Report Number: [id number] PROCEDURE INFORMATION: Exam: CT Abdomen And Pelvis With Contrast Exam date and time: 01/29/2021 9:00 PM Age: 40 years old Clinical indication: Abdominal pain; Prior surgery; Surgery date: 6+ months; Surgery type: Hyst, hernia; Patient HX: C/O periumbilical abd pain x 5 mos - worsening and w nausea and diarrhea now; Additional info: Periumbilical abdominal pain with nausea and diarrhea. TECHNIQUE: Imaging protocol: Computed tomography of the abdomen and pelvis with contrast. Radiation optimization: All CT scans at this facility use at least one of these dose optimization techniques: automated exposure control; mA and/or kV adjustment per patient size (includes targeted exams where dose is matched to clinical indication); or iterative reconstruction. Contrast material: OMNI 300; Contrast volume: 95 ml; Contrast route: INTRAVENOUS (IV); COMPARISON: CT abdomen pelvis wo con [id number] 05/24/2018 9:20 AM RADIATION DOSE METRICS: Total DLP (mGy-cm): 1680.55 FINDINGS: Liver: Normal. No mass. Gallbladder and bile ducts: Cholecystectomy. Pancreas: Normal. No ductal dilation. Spleen: Normal. No splenomegaly. Adrenal glands: Normal. No mass. Kidneys and ureters: Normal. No hydronephrosis. Stomach and bowel: Prominent fluid in the small bowel without dilation suggestive of an enteritis. Appendix: No evidence of appendicitis. Intraperitoneal space: Unremarkable. No free air. No significant fluid collection. Vasculature: Unremarkable. No abdominal aortic aneurysm. Lymph nodes: Unremarkable. No enlarged lymph nodes. Urinary bladder: Unremarkable as visualized. Reproductive: Unremarkable as visualized. Bones/joints: Unremarkable. No acute fracture. Soft tissues: Unremarkable. CT/CT abdomen pelvis w con* [id number] IMPRESSION: 1. Prominent fluid in the small bowel without dilation suggestive of an enteritis. 2. Cholecystectomy. Radiation Dose CTDIVOL = (mGy): DLP = 1680.55 (mGy-cm) Dictated By: Danilo Sow MD Signed By: Danilo Sow MD Signed Date/Time: 01/29/212220 DD/ 19 Discharge Plan Discharge Patient Disposition: Home Clinical Impression: Viral enteritis Condition: Stable Prescriptions: New ondansetron 4 mg tablet,disintegrating 4 mg PO Q8H PRN (Reason: nausea and vomiting) Qty: 12 RF: 0 No Action fluoxetine [Prozac] 20 mg capsule 20 mg PO QAM Qty: 30 RF: 2 fluoxetine 10 mg capsule 10 mg PO QAM Qty: 30 RF: 2 (DME) oxygen concentrator w/portable tank See Rx Instructions .Route .MEDSUPPLY Qty: 1 RF: 0 (DME) CAM Boot See Rx Instructions .Route .MEDSUPPLY Qty: 1 RF: 0 meclizine 25 mg tablet 25 mg PO TID PRN (Reason: dizziness) 3 Days Qty: 9 RF: 0 tizanidine 2 mg tablet 2 mg PO BEDTIME PRN (Reason: Muscle Spasm) RF: 0 isosorbide dinitrate 30 mg tablet 15 mg PO QAM RF: 0 tamsulosin 0.4 mg capsule 0.4 mg PO QAM RF: 0 montelukast 10 mg tablet 10 mg PO QAM RF: 0 furosemide 20 mg tablet 20 mg PO DAILY RF: 0 ergocalciferol (vitamin D2) 1,250 mcg (50,000 unit) capsule 1,250 mcg PO Q7D RF: 0 potassium chloride 10 mEq tablet,ER particles/crystals 10 meq PO QAM RF: 0 Voltaren 1 % gel 2 g topical DAILY PRN (Reason: Pain) RF: 0 (DME) Compact Compressor Nebulizer Misc See Rx Instructions .Route Qty: 1 RF: 0 tramadol 50 mg tablet 50 mg PO BID PRN (Reason: pain) Qty: 14 RF: 0 Discharge Orders: Discharge ED (Routine); Ordered 01/29/21 Ordered By: Yrn Walker Referrals: Flakita Kerr, [facility] [Primary Care Provider] - Discharge Diet: Regular Discharge Activity: Resume usual activity Patient Instructions: Gastroenteritis (ED), Viral Syndrome (ED) Activity Restrictions/Additional Instructions: Follow-up with medical provider as directed in 7-10 days. Take Zofran as prescribed as needed for nausea. Ask you drink plenty of fluids and stay hydrated. Take [id number] Tylenol or ibuprofen for fever or pain. Return to the ER or your medical provider if condition worsens. Please read and understand discharge instructions. Thank you for choosing [facility] for your healthcare needs today. Please realize this is an emergency room and that we are providing you with a medical screening exam and this may not be complete and all inclusive of all the testing and or work up that you may need to determine your ailment or severity of your illness. It is very important that you follow up as instructed or that you return to the Emergency Department should you have concerns or if your condition changes or worsens in any way. Coding Level of Care Code ED Assembly Line Inspector for Aj Whalen Exam Comprehensive
--- NOTE | 2021-01-29 20:37 | CTR_ITS ---
PROCEDURE INFORMATION: Exam: CT Abdomen And Pelvis With Contrast Exam date and time: 01/29/2021 9:00 PM Age: 40 years old Clinical indication: Abdominal pain; Prior surgery; Surgery date: 6+ months; Surgery type: Hyst, hernia; Patient HX: C/O periumbilical abd pain x 5 mos - worsening and w nausea and diarrhea now; Additional info: Periumbilical abdominal pain with nausea and diarrhea. TECHNIQUE: Imaging protocol: Computed tomography of the abdomen and pelvis with contrast. Radiation optimization: All CT scans at this facility use at least one of these dose optimization techniques: automated exposure control; mA and/or kV adjustment per patient size (includes targeted exams where dose is matched to clinical indication); or iterative reconstruction. Contrast material: OMNI 300; Contrast volume: 95 ml; Contrast route: INTRAVENOUS (IV); COMPARISON: CT abdomen pelvis wo con [id number] 05/24/2018 9:20 AM RADIATION DOSE METRICS: Total DLP (mGy-cm): 1680.55 FINDINGS: Liver: Normal. No mass. Gallbladder and bile ducts: Cholecystectomy. Pancreas: Normal. No ductal dilation. Spleen: Normal. No splenomegaly. Adrenal glands: Normal. No mass. Kidneys and ureters: Normal. No hydronephrosis. Stomach and bowel: Prominent fluid in the small bowel without dilation suggestive of an enteritis. Appendix: No evidence of appendicitis. Intraperitoneal space: Unremarkable. No free air. No significant fluid collection. Vasculature: Unremarkable. No abdominal aortic aneurysm. Lymph nodes: Unremarkable. No enlarged lymph nodes. Urinary bladder: Unremarkable as visualized. Reproductive: Unremarkable as visualized. Bones/joints: Unremarkable. No acute fracture. Soft tissues: Unremarkable. CT/CT abdomen pelvis w con* [id number] IMPRESSION: 1. Prominent fluid in the small bowel without dilation suggestive of an enteritis. 2. Cholecystectomy. Radiation Dose CTDIVOL = (mGy): DLP = 1680.55 (mGy-cm)
[2021-01-29 20:47] VITALS: BP 119/77; PULSE 72; RESP 16; O2SAT 98
[2021-01-29 20:53] VITALS: RESP 16
[2021-01-29] MEDS: morphine 4 mg/mL SDV 1 mL 2 MG IVP (20:53)
[2021-01-29] MEDS: ondansetron 2 mg/ML SDV 2 mL 4 MG IVP (20:53)
[2021-01-29 21:12] LABS: Urine Appearance SL Hazy (CLEAR); Urine Color Yellow (Yellow); pH Urine 5 (5-7)
[2021-01-29] MEDS: iohexol 300 mg/mL 100 mL Btl IV (21:12)
[2021-01-29 21:13] LABS: Bilirubin Urine Neg (Negative); Blood Urine Neg (Negative); Glucose Urine UA Norm (Normal); Ketones Urine Negative (Negative); Leukocyte Esterase Urine Negative (Negative); Nitrate Urine Negative (Negative); Protein Urine Neg (Negative); RBC Urine 0-4 /hpf (0-2); Urobilinogen Urine Norm (Negative); WBC Urine 0-4 /hpf (0-5)
[2021-01-29 21:14] LABS: Add Urine Culture? No; Bacteria Urine TRACE /hpf
[2021-01-29 21:28] LABS: Basophils # 0.1 10^3/uL (0.0-0.1); Basophils % 0.7 %; Eosinophils # 0.3 10^3/uL (0.0-0.8); Eosinophils % 3.6 %; Hematocrit 44.5 % (37.0-47.0); Hemoglobin 14.1 g/dL (11.5-15.3); Lymphocytes # 3.6 10^3/uL (0.8-4.8); Lymphocytes % 39.7 %; Mean Corpuscular HGB Conc 31.7 g/dL (30.0-36.0); Mean Corpuscular Hemoglobin 29.7 pg (28.0-34.0); Mean Corpuscular Volume 93.9 fL (81-99); Mean Platelet Volume 11.1 fL (7.4-10.4); Monocytes # 0.7 10^3/uL (0.2-0.9); Monocytes % 8.1 %; Neutrophils # 4.32 10^3/uL (1.8-7.7); Neutrophils % 47.6 %; Nucleated Red Blood Cells % 0 %; Platelet Count 228 10^3/cmm (130-400); Red Blood Count 4.74 10^6/uL (4.1-5.3); Red Cell Distribution Width 13.2 % (12.1-15.1); White Blood Count 9.1 10^3/uL (4.0-10.0)
[2021-01-29 21:48] LABS: HCG, Serum Qual Negative (Negative)
[2021-01-29 21:49] LABS: Alanine Aminotransferase 12 U/L (0-33); Albumin Level 3.7 g/dL (3.5-5.2); Alkaline Phosphatase 86 IU/L (35-105); Anion Gap 16.3 (5-19); Aspartate Amino Transferase 11 U/L (0-32); Blood Urea Nitrogen 9 mg/dL (6-20); Calcium 8.5 mg/dL (8.5-10.5); Carbon Dioxide 24 mmol/L (22-29); Chloride 102 mmol/L (98-107); Globulin 1.9 g/dL (1.3-4.6); Glomerular Filtration Rate 92.7 mL/min (90-130); Glucose 89 mg/dL (65-115); Lipase 16 U/L (13-60); Osmolality Calculated 284 mOsm/kg (285-295); Potassium 4.3 mmol/L (3.5-5.1); Sodium 138 mmol/L (136-145); Total Bilirubin 0.7 mg/dL (0.15-1.2); Total Protein 5.6 g/dL (6.6-8.7)
[2021-01-29 22:52] VITALS: BP 129/88; PULSE 80; RESP 16; O2SAT 96
== END 2021-01-29 22:54 | disposition home or self-care (01) ==
PROVIDERS: Emergency Provider Physician Assistant; PCP Nurse Practitioner
DX: A08.4 Viral intestinal infection, unspecified (principal); E78.2 Mixed hyperlipidemia; F17.210 Nicotine dependence, cigarettes, uncomplicated
CPT/HCPCS: 74177; 80053; 81001; 83690; 84703; 85025; 96374; 96375; 99283; J2270; J2405; Q9967

== ENCOUNTER 2021-01-31 16:24 | Outpatient (CLI) | payer MEDICARE, MEDICAID, SELFPAY ==
[2020-12-30 09:37] VITALS: BP 107/72; BMI 35.9
[2021-02-02 17:38] LABS: Alternaria Class 2; Bermuda Class 0/1; Bermuda Grass (G2) Ige 0.15 kU/L; Cat Dander (E1) Ige <0.10 kU/L; Cat Dander Class 0; Common Ragweed (Short) (W1) Ig 0.15 kU/L; D. Farinae Class 0; Dermatophagoides Class 0; Dermatophagoides Farinae (D2) <0.10 kU/L; Dermatophagoides Pteronyssinus <0.10 kU/L; Dog Dander (E5) Ige <0.10 kU/L; Dog Dander Class 0; Elm (T8) Ige 0.16 kU/L; Elm Class 0/1; English Plantain (W9) Ige 0.15 kU/L; English Plantain Class 0/1; House Dust (Greer) (H1) Ige <0.10 kU/L; House Dust (Hollister- Stier) <0.10 kU/L; House Dust Class 0; Immunoglobulin E 189 kU/L (<OR=114); Immunoglobulin E 201 kU/L (<OR=114); Johnson Grass (G10) Ige 0.15 kU/L; Johnson Grass Cl 0/1; June Grass Class 1; June Grass(Kentucky Blue) (G8) 0.55 kU/L; Lamb'S Quarters (Goose Foot) 0.19 kU/L; Lamb'S Quarters Class 0/1; Maple (Box Elder) (T1) Ige 0.14 kU/L; Maple Class 0/1; Meadow Fescue (G4) Ige 0.51 kU/L; Meadow Fescue Class 1; Mucor Racemosus Class 0/1; Oak (T7) Ige 0.13 kU/L; Oak Class 0/1; Orchard Grass (Cocksfoot) (G3) 0.35 kU/L; Penicillium Class 0; Penicillium Notatum (M1) Ige <0.10 kU/L; Perennial Rye Grass (G5) Ige 0.48 kU/L; Perennial Rye Grass Class 1; Ragweeed Class 0/1; Rough Marsh Elder (W16) Ige 0.17 kU/L; Rough Marsh Elder Class 0/1; Sweet Vernal Class 0/1; Sweet Vernal Grass (G1) Ige 0.19 kU/L; Timothy Grass (G6) Ige 0.41 kU/L; Timothy Grass Class 1
== END 2021-01-31 16:25 | disposition home or self-care (01) ==
PROVIDERS: PCP Nurse Practitioner; Visit Provider Internal Medicine Critical Care Medicine
DX: J45.909 Unspecified asthma, uncomplicated (principal); R06.02 Shortness of breath; Z79.899 Other long term (current) drug therapy
CPT/HCPCS: 36415; 82785; 86003

== ENCOUNTER → 2021-02-18 13:35 | Outpatient (BNVA) | payer MEDICARE, MEDICAID, SELFPAY ==
[2021-02-17 13:26] VITALS: BP 107/72; BMI 35.9
== END ==
PROVIDERS: PCP Nurse Practitioner; Visit Provider Internal Medicine Critical Care Medicine
DX: Z01.818 Encounter for other preprocedural examination (principal); Z20.822 Contact with and (suspected) exposure to COVID-19
CPT/HCPCS: 87635

== ENCOUNTER → 2021-03-01 15:45 | Outpatient (BNVA) | payer MEDICARE, MEDICAID, SELFPAY ==
[2021-02-17 13:26] VITALS: BP 107/72; BMI 35.9
== END ==
PROVIDERS: PCP Nurse Practitioner; Visit Provider Orthopaedic Surgery
DX: S82.62XD Displaced fracture of lateral malleolus of left fibula, subsequent encounter for closed fracture with routine healing (principal); W19.XXXD Unspecified fall, subsequent encounter
CPT/HCPCS: 73610

== ENCOUNTER → 2021-03-04 10:08 | Outpatient (BNVA) | payer MEDICARE, MEDICAID, SELFPAY ==
[2021-02-17 13:26] VITALS: BP 107/72; BMI 35.9
== END ==
PROVIDERS: PCP Nurse Practitioner; Visit Provider Internal Medicine Critical Care Medicine
DX: Z01.818 Encounter for other preprocedural examination (principal); Z20.822 Contact with and (suspected) exposure to COVID-19
CPT/HCPCS: 87635

== ENCOUNTER 2021-03-08 14:00 | Outpatient (CLI) | payer MEDICARE, MEDICAID, SELFPAY ==
[2020-12-30 09:37] VITALS: BP 107/72; BMI 35.9
== END 2021-03-08 14:01 | disposition home or self-care (01) ==
LOC: RT 01-25 08:36
PROVIDERS: PCP Nurse Practitioner; Visit Provider Internal Medicine Critical Care Medicine
DX: Z01.812 Encounter for preprocedural laboratory examination (principal); R10.13 Epigastric pain; Z20.822 Contact with and (suspected) exposure to COVID-19
CPT/HCPCS: 87635

== ENCOUNTER 2021-03-09 06:00 | Outpatient (RCR) | payer MEDICARE, MEDICAID, SELFPAY ==
[2021-02-17 13:26] VITALS: BP 107/72; BMI 35.9
== END 2021-03-09 23:59 | disposition home or self-care (01) ==
LOC: APT 06:00
PROVIDERS: PCP Nurse Practitioner; Referring Provider Orthopaedic Surgery; Visit Provider Orthopaedic Surgery
DX: S82.63XD Displaced fracture of lateral malleolus of unspecified fibula, subsequent encounter for closed fracture with routine healing (principal); X58.XXXD Exposure to other specified factors, subsequent encounter
CPT/HCPCS: 97110; 97161

== ENCOUNTER 2021-03-10 06:00 | Outpatient (RCR) | payer MEDICARE, MEDICAID, SELFPAY ==
[2021-02-17 13:26] VITALS: BP 107/72; BMI 35.9
== END 2021-04-09 23:59 | disposition home or self-care (01) ==
LOC: APT 06:00
PROVIDERS: PCP Nurse Practitioner; Referring Provider Orthopaedic Surgery; Visit Provider Orthopaedic Surgery
DX: S82.892A Other fracture of left lower leg, initial encounter for closed fracture (principal); X58.XXXA Exposure to other specified factors, initial encounter
CPT/HCPCS: 97110

== ENCOUNTER 2021-03-11 08:43 | Day surgery (SDC) | payer MEDICARE, MEDICAID, SELFPAY ==
[2021-02-17 13:26] VITALS: BP 107/72; BMI 35.9
--- NOTE | 2021-03-11 09:07 | P.ANESASSM_ITS ---
Pre-Anesthetic Assessment Pre-Anesthetic Assessment: Height/Weight: Height 1.5 m Weight 106.141 kg Preop Diagnosis: epigastric pain Proposed Procedure: Operation Date: 03/11/21 10:30 Proposed Procedures p EGD 55235 R10.13(Not Applicable) - Bo Nunez MD Was Beta Bimal taken within 24 hours: N/A Social: Social History: Tobacco and No alcohol Exam: Pre-Anes Outpt Exam: alert, oriented x 3 and regular rate & rhythm Airway: Submandibular: WNL Cervical ROM: WNL MP: 2 Dentition: Chipped Pulmonary: Pulmonary: Asthma, COPD and Sleep apnea GI: GI: GERD Metabolic: Metabolic: Morbid obesity Neuropsych: Comments: PTSD Anesthetic Plan: ASA status: 3 Anesthesia: MAC Risk of > 500 ml blood loss (7ml/kg in children): No PFSH Anesthesia PFSH: Medical History (Updated 03/08/21 @ 11:03 by Bo Nunez MD) Acid reflux Asthma due to environmental allergies Asthma with acute exacerbation Chronic post-traumatic stress disorder (PTSD) Edema of extremity Hypokalemia 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 Mixed hyperlipidemia Morbid obesity with BMI of 45.0-49.9, adult KASEY on CPAP PTSD (post-traumatic stress disorder) Seasonal allergic rhinitis Sleep difficulties Tobacco use disorder Urinary hesitancy Surgical History (Updated 03/08/21 @ 11:01 by Bo Nunez MD) History of bilateral knee arthroplasty History of carpal tunnel surgery of right wrist 2020 History of cholecystectomy History of hysterectomy with bilateral oophorectomy History of skin graft On bilateral legs History of umbilical hernia repair Family History Mother Cancer Diabetes Brother Cancer Diabetes Social History Smoking and tobacco status: current every day smoker cigarettes Packs smoked per day: 1 Years cigarettes smoked: 27 Quit status (tobacco): considering quitting Second hand smoke exposure: Yes Smoking risk assessment/counseling performed?: Yes Alcohol intake: never Desire information about alcohol rehabilitation?: No Counseling given: No Desire information about substance/drug rehabilitation?: No Counseling given: No Adopted: Yes Caregiver/support person: No Lives independently: Yes Household members: significant other Housing: House Marital status: Number of children: 0 Number of grandchildren: 0 Highest education level completed: High School Graduate service: No Current occupational status: disabled Pets and animals: Yes Pets & animals: dog(s) Pets & animal details: su History of recent travel: No Leisure activites: exercise Sexually active: Yes Current gender identity: Female /Cheondoism: Hoahaoism Special needs: No Agree to transfusion: Yes Financial difficulty paying for basics: Not Very Hard Data Anesthesia Cardiac Studies: No Data to Display
[2021-03-11 09:10] VITALS: BP 158/96; PULSE 64; RESP 18; TEMP 36.4; O2SAT 95
[2021-03-11] MEDS: sodium chloride 0.9% 1,000 ML 30 ML IV (09:21)
--- NOTE | 2021-03-11 09:55 | P.HP_ITS ---
Same Day Surgery H&P Indication for Procedure/HPI DATE OF PROCEDURE: March 11, 2021 CHIEF COMPLAINT/INDICATIONFOR SURGICAL PROCEDURE: Abdominal pain PREOP DIAGNOSIS: epigastric pain PLANNED PROCEDRUE: Operation Date: 03/11/21 10:30 Proposed Procedures p EGD 28008 R10.13(Not Applicable) - Bo Nunez MD Medications/Allergies* Home Medications Medication Instructions Recorded Confirmed Type diclofenac sodium [Voltaren] 2 g TOPICAL DAILY PRN 01/06/21 03/11/21 History ergocalciferol (vitamin D2) 1,250 mcg PO Q7D 01/06/21 03/09/21 History furosemide 20 mg PO DAILY 01/06/21 03/09/21 History montelukast 10 mg PO QAM 01/06/21 03/09/21 History potassium chloride 10 meq PO QAM 01/06/21 03/09/21 History tamsulosin 0.4 mg PO QAM 01/06/21 03/09/21 History Allergies/Adverse Reactions Allergy/AdvReac Type Severity Reaction Status Date / Time Penicillins Allergy Unknown Verified 03/08/21 10:31 Current Medications: Generic Name Dose Route Start Last Admin Trade Name Freq PRN Reason Stop Dose Admin Sodium Chloride 1,000 mls @ 30 mls/hr 03/11/21 09:00 03/11/21 09:21 Sodium Chloride 0.9% IV 30 mls/hr .Q24H CLIFFORD Administration Pertinent History/Comorbid Conditions* Medical History (Updated 03/08/21 @ 11:03 by Bo Nunez MD) Acid reflux Asthma due to environmental allergies Asthma with acute exacerbation Chronic post-traumatic stress disorder (PTSD) Edema of extremity Hypokalemia 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 Mixed hyperlipidemia Morbid obesity with BMI of 45.0-49.9, adult KASEY on CPAP PTSD (post-traumatic stress disorder) Seasonal allergic rhinitis Sleep difficulties Tobacco use disorder Urinary hesitancy Surgical History (Updated 03/08/21 @ 11:01 by Bo Nunez MD) History of bilateral knee arthroplasty History of carpal tunnel surgery of right wrist 2019 History of cholecystectomy History of hysterectomy with bilateral oophorectomy History of skin graft On bilateral legs History of umbilical hernia repair Family History (Updated 10/21/19 @ 09:24 by HANANE Freire) Diabetes Mother Brother Cancer Mother Brother Social History Smoking and tobacco status: current every day smoker cigarettes Packs smoked per day: 1 Years cigarettes smoked: 27 Quit status (tobacco): considering quitting Second hand smoke exposure: Yes Smoking risk assessment/counseling performed?: Yes Alcohol intake: never Desire information about alcohol rehabilitation?: No Counseling given: No Desire information about substance/drug rehabilitation?: No Counseling given: No Adopted: Yes Caregiver/support person: No Lives independently: Yes Household members: significant other Housing: House Marital status: Number of children: 0 Number of grandchildren: 0 Highest education level completed: High School Graduate service: No Current occupational status: disabled Pets and animals: Yes Pets & animals: dog(s) Pets & animal details: jeff and isacc History of recent travel: No Leisure activites: exercise Sexually active: Yes Current gender identity: Female /Scientologist: Mandaen Special needs: No Agree to transfusion: Yes Financial difficulty paying for basics: Not Very Hard Pertinent Exam Findings alert, oriented x 3, clear to auscultation bilaterally, regular rate & rhythm, operative site marked and procedure specific exam findings Recommendations Surgery/Procedure today Coding Level of Care Code Acute 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
[2021-03-11 10:10] VITALS: BP 106/70; PULSE 75; RESP 18; TEMP 36.1; O2SAT 94
[2021-03-11 10:23] VITALS: BP 115/74; PULSE 65; RESP 16; O2SAT 95
--- NOTE | 2021-03-11 15:24 | ANE.PACU2 ---
Inpatient post-anesthesia follow up: Airway intact: Yes Vital signs: Temperature 97 F Pulse Rate 65 Respiratory Rate 16 Blood Pressure 115/74 Pulse Oximetry 95 Oxygen Delivery Me thod Room Air Oxygen Flow Rate Fraction of Inspir ed Oxygen Hydration adequate: Yes Nausea and vomiting: No Pain level: 1 Mental status: Baseline
[2021-03-12 14:46] LABS: H. Pylori / CLO Test Negative
== END 2021-03-11 10:39 | disposition home or self-care (01) ==
PROVIDERS: PCP Nurse Practitioner; Visit Provider Internal Medicine
PROC: 0DJ08ZZ Inspection of Upper Intestinal Tract, Via Natural or Artificial Opening Endoscopic (ICD-10-PCS; CPT 43235; principal; 2021-03-11 10:30)
DX: R10.13 Epigastric pain (principal); K21.9 Gastro-esophageal reflux disease without esophagitis; K44.9 Diaphragmatic hernia without obstruction or gangrene; K29.70 Gastritis, unspecified, without bleeding; J45.909 Unspecified asthma, uncomplicated; E78.2 Mixed hyperlipidemia; E66.01 Morbid (severe) obesity due to excess calories; Z68.42 Body mass index [BMI] 45.0-49.9, adult; G47.33 Obstructive sleep apnea (adult) (pediatric); F17.210 Nicotine dependence, cigarettes, uncomplicated
CPT/HCPCS: 43239; 87077; 96360; J2704; J7030

== ENCOUNTER 2021-04-02 16:11 | Emergency (ER) | payer MEDICARE, MEDICAID, SELFPAY ==
[2021-02-17 13:26] VITALS: BP 107/72; BMI 35.9
[2021-04-02 16:15] VITALS: BP 133/84; PULSE 81; RESP 18; TEMP 36.6; O2SAT 96; BMI 44.4
[2021-04-02 16:24] VITALS: BP 133/84; PULSE 80; RESP 18; O2SAT 95
--- NOTE | 2021-04-02 16:36 | XRR_ITS ---
PROCEDURE INFORMATION: Exam: XR Chest Exam date and time: 04/02/2021 4:36 PM Age: 40 years old Clinical indication: Shortness of breath; Additional info: SOB TECHNIQUE: Imaging protocol: XR of the chest. Views: 1 view. COMPARISON: CR XR chest 1V portable [id number] 01/06/2021 5:55 PM FINDINGS: Lungs: Unremarkable. No consolidation. Pleural spaces: Unremarkable. No pleural effusion. No pneumothorax. Heart/Mediastinum: Unremarkable. No cardiomegaly. Bones/joints: Resection of the distal clavicles. XR/XR chest 1V portable [id number] IMPRESSION: No acute findings.
--- NOTE | 2021-04-02 16:39 | ED_ITS ---
Documented by User: JOAQUIN Pérez 04/02/21 16:42 HPI - SOB/Dyspnea General: Chief Complaint: Shortness of Breath/Dyspnea Stated Complaint: SOB/ FATIGUE Time Seen by Provider: 04/02/21 16:23 History of Present Illness: HPI Narrative: Patient arrived via ambulance with a complaint onset onset shortness of breath. Patient is doing much better now received albuterol treatment in ambulance. Patient is on 2 L at home chronicall y. Patient states this happens to her all the time she is got scared today. She does have inhalers that she uses. Patient continues to smoke. Patient denies being sick here of recently. MD elicited complaint: shortness of breath Pertinent past history: COPD Context: medication noncompliance Timing: improved Severity: mild Known history of: COPD Associated symptoms: Reports no associated symptoms; Deny abdominal pain, chest pain, extremity pain, fever(s), nausea or vomiting Treatment prior to arrival: oxygen and bronchodilator Review of Systems Const: Denies: fever(s), chills or body aches Eyes: Denies: change in vision or blurry vision ENMT: Denies: throat pain or nasal congestion Card: Denies: chest pain or dyspnea on exertion Resp: Reports: dyspnea; Denies: productive cough or non-productive cough GI: Denies: abdominal pain, nausea or vomiting Musc: Denies: extremity pain Skin/Breast: Denies: rash Neuro: Denies: headache(s) Psych: Denies: anxiety or depression Abe/Lymph: Denies: easy bruising PFSH ED PFSH: Medical History Acid reflux Asthma due to environmental allergies Asthma with acute exacerbation Chronic post-traumatic stress disorder (PTSD) Edema of extremity Hypokalemia 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 Mixed hyperlipidemia Morbid obesity with BMI of 45.0-49.9, adult KASEY on CPAP PTSD (post-traumatic stress disorder) Seasonal allergic rhinitis Sleep difficulties Tobacco use disorder Urinary hesitancy Surgical History History of bilateral knee arthroplasty History of carpal tunnel surgery of right wrist 2020 History of cholecystectomy History of hysterectomy with bilateral oophorectomy History of skin graft On bilateral legs History of umbilical hernia repair Family History Mother Cancer Diabetes Brother Cancer Diabetes Social History Smoking and tobacco status: current every day smoker cigarettes Packs smoked per day: 1 Years cigarettes smoked: 27 Quit status (tobacco): considering quitting Second hand smoke exposure: Yes Smoking risk assessment/counseling performed?: Yes Alcohol intake: never Desire information about alcohol rehabilitation?: No Counseling given: No Desire information about substance/drug rehabilitation?: No Counseling given: No Adopted: Yes Caregiver/support person: No Lives independently: Yes Household members: significant other Housing: House Marital status: Number of children: 0 Number of grandchildren: 0 Highest education level completed: High School Graduate service: No Current occupational status: disabled Pets and animals: Yes Pets & animals: dog(s) Pets & animal details: jeff and isacc History of recent travel: No Leisure activites: exercise Sexually active: Yes Current gender identity: Female /Orthodoxy: Sabianism Special needs: No Agree to transfusion: Yes Financial difficulty paying for basics: Not Very Hard Physical Exam Const: COMMON NORMALS: no acute distress, average body habitus and patient oriented x3 HENMT: COMMON NORMALS: normocephalic HEAD & SCALP: normal to inspection and normocephalic FACE & SINUS: normal facial exam Eye: COMMON NORMALS: conjunctivae normal GENERAL EYE: appearance normal, both eyes and all related structures CONJUNCTIVA: Yes conjunctivae normal Neck/C-Spine: COMMON NORMALS: no JVD Chest: COMMONS NORMALS: normal inspection of the chest Resp: COMMON NORMALS: normal respiratory effort AUSCULTATION: rhonchi left lower Cardio: COMMON NORMALS: no JVD, regular rate and regular rhythm RATE: regular rate RHYTHM: regular rhythm GI: COMMON NORMALS: Normal to inspection, nondistended, normoactive bowel sounds present Extremity: COMMON NORMALS: normal to inspection and full ROM Neuro: COMMON NORMALS: patient oriented x3 Course Vital Signs: Vital signs: Vital Signs Temperature 97.8 F 04/02/21 16:15 Pulse Rate 73 04/02/21 17:38 Respiratory Rate 18 04/02/21 17:38 Blood Pressure 165/107 04/02/21 17:38 Pulse Oximetry 96 04/02/21 17:38 MDM - SOB/Dyspnea Lab Data: Labs: Lab Results 04/02/21 Range/Units 16:56 SARS-CoV-2 Ag (Rap id) Negative (Negative) Discharge Plan Discharge Patient Disposition: Home Clinical Impression: Asthma with acute exacerbation Qualifiers: Asthma severity: moderate Asthma persistence: persistent Qualified Code(s): J45.41 - Moderate persistent asthma with (acute) exacerbation Condition: Stable Prescriptions: New doxycycline monohydrate 100 mg capsule 100 mg PO BID 7 Days Qty: 14 RF: 0 dexamethasone 6 mg tablet 6 mg PO DAILY Qty: 7 RF: 0 No Action (DME) oxygen concentrator w/portable tank See Rx Instructions .Route .MEDSUPPLY Qty: 1 RF: 0 (DME) CAM Boot See Rx Instructions .Route .MEDSUPPLY Qty: 1 RF: 0 duloxetine 30 mg capsule,delayed release(DR/EC) 30 mg PO DAILY Qty: 90 RF: 3 tamsulosin 0.4 mg capsule 0.4 mg PO DAILY RF: 0 montelukast 10 mg tablet 10 mg PO DAILY RF: 0 furosemide 20 mg tablet 20 mg PO DAILY RF: 0 ergocalciferol (vitamin D2) 1,250 mcg (50,000 unit) capsule 1,250 mcg PO Q7D RF: 0 potassium chloride 10 mEq tablet,ER particles/crystals 10 meq PO DAILY RF: 0 diclofenac sodium [Voltaren] 1 % gel 2 g topical DAILY PRN (Reason: Pain) RF: 0 (DME) Compact Compressor Nebulizer Misc See Rx Instructions .Route Qty: 1 RF: 0 tramadol 50 mg tablet 50 mg PO BID PRN (Reason: pain) Qty: 14 RF: 0 ondansetron 4 mg tablet,disintegrating 4 mg PO Q8H PRN (Reason: nausea and vomiting) Qty: 12 RF: 0 pantoprazole 40 mg tablet,delayed release (DR/EC) 40 mg PO DAILY Qty: 90 RF: 8 albuterol sulfate 2.5 mg /3 mL (0.083 %) solution for nebulization See Rx Instructions .ROUTE .COMPLEX RF: 0 omeprazole 40 mg Capsule,Delayed Release(Dr/Ec) 40 mg PO DAILY RF: 0 fluoxetine 10 mg capsule 10 mg PO DAILY RF: 0 fluoxetine 20 mg capsule 20 mg PO DAILY RF: 0 isosorbide dinitrate 30 mg tablet 15 mg PO DAILY RF: 0 Discharge Orders: Discharge ED (Routine); Ordered 04/02/21 Ordered By: Luciano Sadler Referrals: Flakita Kerr FNP-C [Primary Care Provider] - Discharge Diet: Usual diet Discharge Activity: Increase activity as tolerated Patient Instructions: Moderate and Severe Persistent Asthma (ED), Opioid Safety Activity Restrictions/Additional Instructions: Medications as directed. Follow-up with primary care for further instruction. Return to the ER for new concerns. Sign Out Sign Out Data: Patient Sign Out occurred on 04/02/21 at 17:03. Patient's care was discussed, and care was transferred from to Luciano Sadler. 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 Mixed hyperlipidemia Morbid obesity with BMI of 45.0-49.9, adult KASEY on CPAP PTSD (post-traumatic stress disorder) Seasonal allergic rhinitis Sleep difficulties Tobacco use disorder Urinary hesitancy Surgical History History of bilateral knee arthroplasty History of carpal tunnel surgery of right wrist 2020 History of cholecystectomy History of hysterectomy with bilateral oophorectomy History of skin graft On bilateral legs History of umbilical hernia repair Family History Mother Cancer Diabetes Brother Cancer Diabetes Social History Smoking and tobacco status: current every day smoker cigarettes Packs smoked per day: 1 Years cigarettes smoked: 27 Quit status (tobacco): considering quitting Second hand smoke exposure: Yes Smoking risk assessment/counseling performed?: Yes Alcohol intake: never Desire information about alcohol rehabilitation?: No Counseling given: No Desire information about substance/drug rehabilitation?: No Counseling given: No Adopted: Yes Caregiver/support person: No Lives independently: Yes Household members: significant other Housing: House Marital status: Number of children: 0 Number of grandchildren: 0 Highest education level completed: High School Graduate service: No Current occupational status: disabled Pets and animals: Yes Pets & animals: dog(s) Pets & animal details: jeff and arnulfosukhjinder History of recent travel: No Leisure activites: exercise Sexually active: Yes Current gender identity: Female /Orthodoxy: Sabianism Special needs: No Agree to transfusion: Yes Financial difficulty paying for basics: Not Very Hard Course ED course: 1700, Assumed care from Robert Trujillo, nurse practitioner, awaiting laboratory and x-ray results. Patient is resting well. Patient appears no acute distress. Vital Signs: Vital signs: Vital Signs Temperature 97.8 F 04/02/21 16:15 Pulse Rate 73 04/02/21 17:38 Respiratory Rate 18 04/02/21 17:38 Blood Pressure 165/107 04/02/21 17:38 Pulse Oximetry 96 04/02/21 17:38 MDM - SOB/Dyspnea 2 MDM Narrative: Medical decision making narrative: Patient came in today with increased difficulty of cough and congestion. On exam patient has some wheezing in lung ramachandran were otherwise has good air movement throughout. Vital signs are normal. Differential diagnosis is COVID-19, pneumonia, exacerbation of asthma. Chest x-ray was normal. COVID-19 test was negative. Feel the patient probably has an exacerbation of her asthma which has cleared after treatment with nebulizer. We will keep patient on some antibiotics for 7 days with doxycycline, and 6 mg of dexamethasone for 7 days. Encourage patient otherwise to continue routine care and follow-up with primary care as needed. Lab Data: Labs: Lab Results 04/02/21 Range/Units 16:56 SARS-CoV-2 Ag (Rap id) Negative (Negative) Discharge Plan Discharge Patient Disposition: Home Clinical Impression: Asthma with acute exacerbation Qualifiers: Asthma severity: moderate Asthma persistence: persistent Qualified Code(s): J45.41 - Moderate persistent asthma with (acute) exacerbation Condition: Stable Prescriptions: New doxycycline monohydrate 100 mg capsule 100 mg PO BID 7 Days Qty: 14 RF: 0 dexamethasone 6 mg tablet 6 mg PO DAILY Qty: 7 RF: 0 No Action (DME) oxygen concentrator w/portable tank See Rx Instructions .Route .MEDSUPPLY Qty: 1 RF: 0 (DME) CAM Boot See Rx Instructions .Route .MEDSUPPLY Qty: 1 RF: 0 duloxetine 30 mg capsule,delayed release(DR/EC) 30 mg PO DAILY Qty: 90 RF: 3 tamsulosin 0.4 mg capsule 0.4 mg PO DAILY RF: 0 montelukast 10 mg tablet 10 mg PO DAILY RF: 0 furosemide 20 mg tablet 20 mg PO DAILY RF: 0 ergocalciferol (vitamin D2) 1,250 mcg (50,000 unit) capsule 1,250 mcg PO Q7D RF: 0 potassium chloride 10 mEq tablet,ER particles/crystals 10 meq PO DAILY RF: 0 diclofenac sodium [Voltaren] 1 % gel 2 g topical DAILY PRN (Reason: Pain) RF: 0 (DME) Compact Compressor Nebulizer Misc See Rx Instructions .Route Qty: 1 RF: 0 tramadol 50 mg tablet 50 mg PO BID PRN (Reason: pain) Qty: 14 RF: 0 ondansetron 4 mg tablet,disintegrating 4 mg PO Q8H PRN (Reason: nausea and vomiting) Qty: 12 RF: 0 pantoprazole 40 mg tablet,delayed release (DR/EC) 40 mg PO DAILY Qty: 90 RF: 8 albuterol sulfate 2.5 mg /3 mL (0.083 %) solution for nebulization See Rx Instructions .ROUTE .COMPLEX RF: 0 omeprazole 40 mg Capsule,Delayed Release(Dr/Ec) 40 mg PO DAILY RF: 0 fluoxetine 10 mg capsule 10 mg PO DAILY RF: 0 fluoxetine 20 mg capsule 20 mg PO DAILY RF: 0 isosorbide dinitrate 30 mg tablet 15 mg PO DAILY RF: 0 Discharge Orders: Discharge ED (Routine); Ordered 04/02/21 Ordered By: Luciano Sadler Referrals: Flakita Kerr, [facility] [Primary Care Provider] - Discharge Diet: Usual diet Discharge Activity: Increase activity as tolerated Patient Instructions: Moderate and Severe Persistent Asthma (ED), Opioid Safety Activity Restrictions/Additional Instructions: Medications as directed. Follow-up with primary care for further instruction. Return to the ER for new concerns. Sign Out Sign Out Data: Patient Sign Out occurred on 04/02/21 at 17:03. Patient's care was discussed, and care was transferred from to Luciano Sadler. Coding Level of Care Code ED Export Administrator for Aj Fwd Exam Comprehensive
[2021-04-02 17:30] LABS: SARS Covid-2 Antigen Negative (Negative)
[2021-04-02 17:38] VITALS: BP 165/107; PULSE 73; RESP 18; O2SAT 96
[2021-04-02 18:03] LABS: Basophils # 0.1 10^3/uL (0.0-0.1); Basophils % 0.9 %; Eosinophils # 0.1 10^3/uL (0.0-0.8); Eosinophils % 1.5 %; Hematocrit 47.3 % (37.0-47.0); Hemoglobin 14.9 g/dL (11.5-15.3); Lymphocytes # 0.9 10^3/uL (0.8-4.8); Lymphocytes % 13.5 %; Mean Corpuscular HGB Conc 31.5 g/dL (30.0-36.0); Mean Corpuscular Hemoglobin 29.4 pg (28.0-34.0); Mean Corpuscular Volume 93.3 fL (81-99); Mean Platelet Volume 11.6 fL (7.4-10.4); Monocytes # 0.2 10^3/uL (0.2-0.9); Monocytes % 3.5 %; Neutrophils # 5.55 10^3/uL (1.8-7.7); Neutrophils % 80.5 %; Nucleated Red Blood Cells % 0 %; Platelet Count 210 10^3/cmm (130-400); Red Blood Count 5.07 10^6/uL (4.1-5.3); Red Cell Distribution Width 13.3 % (12.1-15.1); White Blood Count 6.9 10^3/uL (4.0-10.0)
[2021-04-02] MEDS: doxycycline 100 mg Tablet PO (18:04)
[2021-04-02] MEDS: dexamethasone 4 mg Tablet 6 MG PO (18:04)
[2021-04-02 18:18] LABS: Alanine Aminotransferase 13 U/L (0-33); Albumin Level 4.1 g/dL (3.5-5.2); Alkaline Phosphatase 86 IU/L (35-105); Anion Gap 13.2 (5-19); Aspartate Amino Transferase 15 U/L (0-32); Blood Urea Nitrogen 16 mg/dL (6-20); Calcium 9.2 mg/dL (8.5-10.5); Carbon Dioxide 26 mmol/L (22-29); Chloride 105 mmol/L (98-107); Globulin 2.7 g/dL (1.3-4.6); Glomerular Filtration Rate 110.7 mL/min (90-130); Glucose 107 mg/dL (65-115); Osmolality Calculated 292 mOsm/kg (285-295); Potassium 4.2 mmol/L (3.5-5.1); Sodium 140 mmol/L (136-145); Total Bilirubin 0.5 mg/dL (0.15-1.2); Total Protein 6.8 g/dL (6.6-8.7)
[2021-04-02 18:34] VITALS: BP 126/93; PULSE 67; RESP 18; O2SAT 95
== END 2021-04-02 18:34 | disposition home or self-care (01) ==
PROVIDERS: Nurse Practitioner Family; Emergency Provider Nurse Practitioner Family; PCP Nurse Practitioner
DX: J45.41 Moderate persistent asthma with (acute) exacerbation (principal); J44.9 Chronic obstructive pulmonary disease, unspecified; E78.2 Mixed hyperlipidemia; E66.01 Morbid (severe) obesity due to excess calories; Z68.41 Body mass index [BMI] 40.0-44.9, adult; G47.33 Obstructive sleep apnea (adult) (pediatric); F17.210 Nicotine dependence, cigarettes, uncomplicated; Z99.81 Dependence on supplemental oxygen
CPT/HCPCS: 36415; 71045; 80053; 85025; 87426; 99283; J8540

== ENCOUNTER → 2021-04-04 07:37 | Outpatient (BNVA) | payer MEDICARE, MEDICAID, SELFPAY ==
[2021-02-17 13:26] VITALS: BP 107/72; BMI 35.9
== END ==
PROVIDERS: PCP Nurse Practitioner; Visit Provider Nurse Practitioner Psychiatric/Mental Health
DX: F43.12 Post-traumatic stress disorder, chronic (principal); F02.80 Dementia in other diseases classified elsewhere, unspecified severity, without behavioral disturbance, psychotic disturbance, mood disturbance, and anxiety; S06.9X9S Unspecified intracranial injury with loss of consciousness of unspecified duration, sequela
CPT/HCPCS: 99213

== ENCOUNTER 2021-04-07 10:26 | Emergency (ER) | payer MEDICARE, MEDICAID, SELFPAY ==
[2021-04-04 14:00] VITALS: BP 107/72; BMI 35.9
--- NOTE | 2021-04-07 10:33 | XR_ITS ---
WS: [id number] XR chest 1V portable [id number] REASON FOR EXAM: SOB FINDINGS: The heart and mediastinum are within normal limits. Calcified granulomatous disease is seen in both hemithoraces. No acute ulnar parenchymal or pleural abnormality is identified. There is a mild thoracic scoliosis convex right. XR/XR chest 1V portable [id number] IMPRESSION: No acute pulmonary abnormality.
== END 2021-04-07 12:59 | disposition left against medical advice (07) ==
PROVIDERS: Emergency Provider Family Medicine; PCP Nurse Practitioner
DX: Z53.21 Procedure and treatment not carried out due to patient leaving prior to being seen by health care provider (principal)
CPT/HCPCS: 71045

== ENCOUNTER → 2021-04-12 14:47 | Outpatient (BNVA) | payer MEDICARE, MEDICAID, SELFPAY ==
[2021-04-04 14:00] VITALS: BP 107/72; BMI 35.9
== END ==
PROVIDERS: PCP Nurse Practitioner; Visit Provider Orthopaedic Surgery
DX: S52.551A Other extraarticular fracture of lower end of right radius, initial encounter for closed fracture (principal); X58.XXXA Exposure to other specified factors, initial encounter
CPT/HCPCS: 73610

== ENCOUNTER → 2021-05-30 08:32 | Outpatient (BNVA) | payer MEDICARE, MEDICAID, SELFPAY ==
[2021-04-04 14:00] VITALS: BP 107/72; BMI 35.9
== END ==
PROVIDERS: PCP Nurse Practitioner; Visit Provider Nurse Practitioner Psychiatric/Mental Health
DX: F43.12 Post-traumatic stress disorder, chronic (principal); F02.80 Dementia in other diseases classified elsewhere, unspecified severity, without behavioral disturbance, psychotic disturbance, mood disturbance, and anxiety; S06.9X9S Unspecified intracranial injury with loss of consciousness of unspecified duration, sequela
CPT/HCPCS: 99213

== ENCOUNTER → 2021-06-01 10:20 | Outpatient (BNVA) | payer MEDICARE, MEDICAID, SELFPAY ==
[2021-04-04 14:00] VITALS: BP 107/72; BMI 35.9
== END ==
PROVIDERS: PCP Nurse Practitioner; Visit Provider Internal Medicine Critical Care Medicine
DX: Z01.812 Encounter for preprocedural laboratory examination (principal); Z20.822 Contact with and (suspected) exposure to COVID-19
CPT/HCPCS: 87635

== ENCOUNTER → 2021-08-18 12:08 | Outpatient (BNVA) | payer MEDICARE, MEDICAID, SELFPAY ==
[2021-04-04 14:00] VITALS: BP 107/72; BMI 35.9
== END ==
PROVIDERS: PCP Nurse Practitioner; Visit Provider Nurse Practitioner Family
DX: E78.2 Mixed hyperlipidemia (principal); E87.6 Hypokalemia; E55.9 Vitamin D deficiency, unspecified; F43.12 Post-traumatic stress disorder, chronic; R60.0 Localized edema; J45.20 Mild intermittent asthma, uncomplicated; J96.11 Chronic respiratory failure with hypoxia; G47.33 Obstructive sleep apnea (adult) (pediatric); Z68.42 Body mass index [BMI] 45.0-49.9, adult; K21.9 Gastro-esophageal reflux disease without esophagitis; F17.200 Nicotine dependence, unspecified, uncomplicated
CPT/HCPCS: 80053; 80061; 82306; 84443; 85025